=== PATIENT | female | born 1950 | race Native Hawaiian/Other Pacific Islander ===

== ENCOUNTER 2017-07-23 04:55 | Inpatient (IN) | payer MEDICARE ==
[2017-07-23 05:00] VITALS: BMI 20.1
--- NOTE | 2017-07-23 05:18 | C.PDOC ---
History Of Present Illness 67 year old female is brought to the ED via EMS with cardiac arrest. Per EMS patient was not feeling well 2 hours ago, went to the bathroom and collapsed. Patient's family found her unresponsive and called 911, CPR was initiated patient was found PEA given epinephrine and patient went into [facility], patient was shocked twice and given 300 mg and 150 mg of amiodarone. Patient was intubated ROSC, her EKG showed acute anterior lateral wall GA. Time Seen by Provider: 07/23/17 04:59 History Per: EMS, Family Reason For Code Blue: Full Arrest Circumstances: Brought To ED By EMS Arrest Witnessed By: Family CPR Initiated Prior To MD Arrival?: Yes Down-Time Before ACLS: Mins (50) Treatment Initiated Prior To MD Arrival: Yes: CPR, Intubation, Defibrillation, IVF, ACLS Medication Initiation, IV Access Medications Given Prior To MD Arrival: Yes: Epinephrine, Other (amiodarone) - Initial Findings Mentation: Unresponsive Respirations: None (Assisted) Pulse: Strong Rhythm: Sinus Rhythm Past Medical History Reviewed: Historical Data, Nursing Documentation, Vital Signs Vital Signs: Last Vital Signs Temp 94.5 F L 07/23/17 05:25 Pulse 67 07/23/17 05:43 Resp 22 07/23/17 05:43 BP 119/75 07/23/17 05:43 Pulse Ox 98 07/23/17 05:25 - Medical History PMH: No Chronic Diseases Surgical History: No Surg Hx Family History: States: Unknown Family Hx - Social History Hx Tobacco Use: No Hx Alcohol Use: No Hx Substance Use: No - Immunization History Hx Tetanus Toxoid Vaccination: No Hx Influenza Vaccination: No Hx Pneumococcal Vaccination: No Review Of Systems Review Of Systems: ROS cannot be obtained secondary to pt's inabilty to answer questions. Physical Exam - Physical Exam Appears: Non-toxic, In Acute Distress, Other (intubated) Skin: Warm, Dry Head: Normacephalic Nose: No Discharge, No Deformity Chest: Symmetrical Cardiovascular: Rhythm Regular, No Murmur Respiratory: Other (intubated, spontaneous breathing) Gastrointestinal/Abdominal: Soft, No Tenderness Extremity: No Pedal Edema, No Calf Tenderness, No Deformity, No Swelling Neurological/Psych: Other (intubated, unresponsive) ED Course And Treatment - Laboratory Results Result Diagrams: 07/23/17 05:16 07/23/17 05:16 ECG: Interpreted By Me, Viewed By Me ECG Rhythm: Sinus Bradycardia (44), ST/T Changes (anterolateral mi) Rate From EC Pulse Ox Interpretation: Normal - Radiology CXR: Interpreted by Me, Viewed By Me CXR Interpretation: Yes: Other (ett in place, NG tube in place). No: Infiltrates, Fracture, Pnemothorax Progress Note: see ems code sheet. called dr ng at 05:03. Code heart activated. Disposition Discussed With Dr.: Justin Hunter Comment: accepted the pt on his service and took over the care at Doctor Will See Patient In The: ED Counseled Patient/Family Regarding: Studies Performed, Diagnosis - Disposition Disposition: HOSPITALIZED Disposition Time: 05:20 Condition: CRITICAL - POA Core Measure Indicators: Code Heart - Clinical Impression Clinical Impression: Cardiac arrest, Acute anterolateral myocardial infarction Critical Care Time - Critical Care Note Total Time (in mins): 30 Documented critical care: time excludes all time spent performing seperately billable procedures. - Scribe Statement The provider has reviewed the documentation as recorded by the Scribe Jose Alejandro Preston All medical record entries made by the Scribe were at my direction and personally dictated by me. I have reviewed the chart and agree that the record accurately reflects my personal performance of the history, physical exam, medical decision making, and the department course for this patient. I have also personally directed, reviewed, and agree with the discharge instructions and disposition. Decision To Admit - Pt Status Changed To: Hospital Disposition Of: Inpatient - Admit Certification Admit to Inpatient:: After my assessment, the patient will require hospitalization for at least two midnights. This is because of the severity of symptoms shown, intensity of services needed, and/or the medical risk in this patient being treated as an outpatient. - InPatient: Physician Admission Certification:: After my assessment, the patient will require hospitalization for at least two midnights. This is because of the severity of symptoms shown, intensity of services needed, and/or the medical risk in this patient being treated as an outpatient. - . Bed Request Type: ICU Admitting Physician: Justin Hunter Patient Diagnosis: Cardiac arrest, Acute anterolateral myocardial infarction
--- NOTE | 2017-07-23 05:21 | C.PDOC ---
History Of Present Illness 67 year old female is brought to the ED via EMS with cardiac arrest. Per EMS patient was not feeling well 2 hours ago, went to the bathroom and collapsed. Patient's family found her unresponsive and called 911, CPR was initiated patient was found PEA given epinephrine and patient went into [facility], patient was shocked twice and given 300 mg and 150 mg of atropine. Patient was intubated ROSC, her EKG showed acute anterior lateral wall NC. Time Seen by Provider: 07/23/17 04:59 Chief Complaint (Nursing): Cardiac Arrest History Per: EMS Reason For Code Blue: Full Arrest Circumstances: Brought To ED By EMS Arrest Witnessed By: Family CPR Initiated Prior To MD Arrival?: Yes Treatment Initiated Prior To MD Arrival: Yes: CPR, Intubation, Defibrillation Medications Given Prior To MD Arrival: Yes: Epinephrine - Initial Findings Mentation: Unresponsive Rhythm: V-Tach Past Medical History Reviewed: Historical Data, Nursing Documentation, Vital Signs - Medical History PMH: No Chronic Diseases Surgical History: No Surg Hx Family History: States: Unknown Family Hx - Social History Hx Alcohol Use: No Hx Substance Use: No - Immunization History Hx Tetanus Toxoid Vaccination: No Hx Influenza Vaccination: No Hx Pneumococcal Vaccination: No Review Of Systems Review Of Systems: ROS cannot be obtained secondary to pt's inabilty to answer questions. Physical Exam - Physical Exam Appears: Non-toxic, In Acute Distress, Other (intubated) Skin: Warm, Dry Head: Normacephalic Nose: No Discharge, No Deformity Chest: Symmetrical Cardiovascular: Rhythm Regular, No Murmur Respiratory: Other (Intubated, spontaneous breathing ) Gastrointestinal/Abdominal: Soft, No Tenderness Extremity: No Pedal Edema, No Calf Tenderness, No Deformity, No Swelling Neurological/Psych: Other (Intubated, spontaneous breathing) Disposition - Disposition
[2017-07-23 05:22] LABS: EOS # 0.1 K/uL (0.0-0.7); EOS % 1.3 % (0.0-4.0); HEMOGLOBIN 11.8 g/dL (11.0-16.0); LYMPH # 6.5 K/uL (1.0-4.3); LYMPH % 86.9 % (20.0-40.0); MEAN CELL VOLUME 92.3 fL (81.0-99.0); MEAN CORPUSCULAR HGB CONC 31.4 g/dL (33.0-37.0); MEAN PLATELET VOLUME 9.3 fL (7.2-11.7); MONO # 0.2 K/uL (0.0-0.8); MONO % 2.5 % (0.0-10.0); NEUT # 0.7 K/uL (1.8-7.0); NEUT % 9.3 % (50.0-75.0); NRBC % 0.1 % (0.0-2.0); PLATELET COUNT 133 K/uL (130-400); RBC 4.07 Mil/uL (3.80-5.20); WHITE BLOOD COUNT 7.5 K/uL (4.8-10.8)
[2017-07-23 05:32] LABS: INR 1.1; PROTHROMBIN TIME 12.6 SECONDS (9.7-12.2)
[2017-07-23] MEDS ORDERED: Nitroglycerin 50mg in D5W 50 MG/250 ML BOTTLE IV ONE (05:53)
[2017-07-23] MEDS ORDERED: Iodixanol 320 MG/ML 200 ML BOTTLE IV ONE (05:54)
[2017-07-23 05:59] LABS: BLOOD UREA NITROGEN 14 mg/dL (7-17); GFR AFRICAN-AMERICAN > 60; GFR NON-AFRICAN AMERICAN > 60
[2017-07-23 06:00] LABS: ALBUMIN 2.5 g/dL (3.5-5.0)
[2017-07-23 06:01] LABS: ALT/SGPT 485 U/L (9-52); AST/SGOT 468 U/L (14-36); CALCIUM 7.3 mg/dl (8.6-10.4)
[2017-07-23 06:22] LABS: TROPONIN I 0.125 ng/mL (0.00-0.120)
[2017-07-23 06:40] LABS: BANDS 2 % (0-2); EOSINOPHIL 3 % (0-4); LYMPHOCYTE 17 % (20-40); MONOCYTE 3 % (0-10); MYELOCYTE 2 % (0-0); NEUTROPHIL 13 % (50-75); PLATELET ESTIMATE SLIGHTLY DECREASED (NORMAL); REACTIVE LYMPHOCYTES 60 % (0-0); TOTAL CELLS COUNTED 100
--- NOTE | 2017-07-23 06:52 | CP.PCM.CON ---
History of Present Illness - History of Present Illness History of Present Illness: 67 year old female with h/o arthritis visiting son from [place] is brought to the ED via EMS with cardiac arrest. Patient had c/o chest pain and sweating about 3: 00am .Family heard a noise about 4:00am found in the bathroom collapsed. Patient 's family found her unresponsive and called 911, CPR was initiated patient was found PEA given epinephrine and patient went into [facility], patient was shocked twice and given 300 mg and 150 mg of amiodarone. Patient was intubated , her EKG showed acute anterior lateral wall RI. received brilinta,heparin,aspirin and nitroglycerine in ER Code heart initiated,but cardiac cath not done due to patients condition no further history available. Past Patient History - Past Social History Smoking Status: Never Smoked Alcohol: None Home Situation {Lives}: With Family - PSYCHIATRIC Hx Substance Use: No - SURGICAL HISTORY Hx Surgeries: No Meds Allergies/Adverse Reactions: Allergies Allergy/AdvReac Type Severity Reaction Status Date / Time No Known Allergies Allergy Unverified 07/23/17 05:00 - Medications Medications: Current Medications Pantoprazole Sodium (Protonix Inj) 40 mg IVP DAILY GLENNA Physical Exam - Constitutional Appears: Younger Than Stated Age Additional comments: orally intubated - Head Exam Head Exam: ATRAUMATIC, NORMAL INSPECTION, NORMOCEPHALIC - Eye Exam Eye Exam: absent: Conjunctival injection, Periorbital swelling, Scleral icterus Additional comments: pupils dilated,sluggishly reactive to light - ENT Exam ENT Exam: Mucous Membranes Moist - Neck Exam Neck exam: Negative for: Normal Inspection - Respiratory Exam Respiratory Exam: Clear to Auscultation Bilateral, NORMAL BREATHING PATTERN. absent: Rales, Rhonchi - Cardiovascular Exam Cardiovascular Exam: REGULAR RHYTHM - GI/Abdominal Exam GI & Abdominal Exam: Normal Bowel Sounds, Soft - Extremities Exam Extremities exam: Positive for: pedal pulses present. Negative for: pedal edema - Neurological Exam Additional comments: unresponsive - Skin Skin Exam: Intact, Normal Color Results - Vital Signs Recent Vital Signs: Last Vital Signs Temp 94.5 F L 07/23/17 05:25 Pulse 67 07/23/17 05:43 Resp 22 07/23/17 05:43 BP 119/75 07/23/17 05:43 Pulse Ox 98 07/23/17 05:25 - Labs Result Diagrams: 07/23/17 05:16 07/23/17 05:16 Labs: Laboratory Results - last 24 hr 07/23/17 07/23/17 07/23/17 05:16 05:16 05:16 WBC 7.5 RBC 4.07 Hgb 11.8 Hct 37.6 MCV 92.3 MCH 29.0 MCHC 31.4 L RDW 14.0 Plt Count 133 MPV 9.3 Neut % (Auto) 9.3 L Lymph % (Auto) 86.9 H Jenkins % (Auto) 2.5 Eos % (Auto) 1.3 Baso % (Auto) 0.0 Neut # 0.7 L Lymph # 6.5 H Jenkins # 0.2 Eos # 0.1 Baso # 0.0 Neutrophils % (Manual) 13 L Band Neutrophils % 2 Lymphocytes % (Manual) 17 L Reactive Lymphs % 60 H Monocytes % (Manual) 3 Eosinophils % (Manual) 3 Myelocytes % 2 H Platelet Estimate Slightly decreased L PT 12.6 H INR 1.1 APTT 48 H Sodium 132 Potassium 3.1 L Chloride 103 Carbon Dioxide 15 L Anion Gap 17 BUN 14 Creatinine 0.9 Est GFR ( Amer) > 60 Est GFR (Non-Af Amer) > 60 Random Glucose 352 H Calcium 7.3 L Total Bilirubin 0.5 AST 468 H ALT 485 H Alkaline Phosphatase 42 Troponin I NT-Pro-B Natriuret Pep Total Protein 5.0 L Albumin 2.5 L Globulin 2.6 Albumin/Globulin Ratio 1.0 07/23/17 05:16 WBC RBC Hgb Hct MCV MCH MCHC RDW Plt Count MPV Neut % (Auto) Lymph % (Auto) Jenkins % (Auto) Eos % (Auto) Baso % (Auto) Neut # Lymph # Jenkins # Eos # Baso # Neutrophils % (Manual) Band Neutrophils % Lymphocytes % (Manual) Reactive Lymphs % Monocytes % (Manual) Eosinophils % (Manual) Myelocytes % Platelet Estimate PT INR APTT Sodium Potassium Chloride Carbon Dioxide Anion Gap BUN Creatinine Est GFR ( Amer) Est GFR (Non-Af Amer) Random Glucose Calcium Total Bilirubin AST ALT Alkaline Phosphatase Troponin I 0.1250 H* NT-Pro-B Natriuret Pep 298 Total Protein Albumin Globulin Albumin/Globulin Ratio - EKG Data EKG Interpreted by: Myself - Imaging and Cardiology Chest x-ray Status: Image reviewed by me Assessment & Plan - Assessment and Plan (Free Text) Assessment: 1.Respiratory failure/Cardiac arrest/ST elevation RI continue ventilatory support CT head consider hypothermia protocol 2.Hypokalemia replace potassium 3.Hyperglycemia-r/o DM HbaIC 4.elevated LFT rpt lft
--- NOTE | 2017-07-23 06:54 | CP.PCM.PN ---
Subjective - Date & Time of Evaluation Date of Evaluation: 07/23/17 Time of Evaluation: 06:47 - Subjective Subjective: 67 f with h/o OA, here in [place] for last 2 wks to help son for taking care of grand son, around 3am woke up with CP, sweating, about 4am went bathroom, the collapsed, pt's son and daughter called EMS, started CPR on guidance, EMT reached about 4:11, initial rhythm PEA, then vfib, then sinus with lateral STEMI with inferior reciprocal changes. Patient needed 3 rounds of epi. Patient was unresponsive in ER and posturing, no clear corneal reflex, ? pupillary reflex. Not on any pressor support. Initial code heart was cancelled due to clinical signs of significant brain damage, patient transferred back to ICU. Son explained. HAMMER CT ordered to r/o any bleeding prior to hypothermia protocol. Supportive care. Objective - Vital Signs/Intake and Output Vital Signs (last 24 hours): Temp Pulse Resp BP Pulse Ox 94.5 F L 67 22 119/75 98 07/23/17 05:25 07/23/17 05:43 07/23/17 05:43 07/23/17 05:43 07/23/17 05:25 - Medications Medications: Current Medications Pantoprazole Sodium (Protonix Inj) 40 mg IVP DAILY GLENNA - Labs Labs: 07/23/17 05:16 07/23/17 05:16 PT 12.6 SECONDS (9.7-12.2) H 07/23/17 05:16 INR 1.1 07/23/17 05:16 APTT 48 SECONDS (21-34) H 07/23/17 05:16
[2017-07-23 06:56] LABS: ABG ALLEN TEST POS; ARTERIAL BLOOD GAS HCO3 12.9 mmol/L (21-28); ARTERIAL BLOOD GAS O2 SAT 100.3 % (95-98); ARTERIAL BLOOD GAS PCO2 34 mm/Hg (35-45); ARTERIAL BLOOD GAS PH 7.16 (7.35-7.45); ARTERIAL BLOOD GAS PO2 498 mm/Hg (80-100); ARTERIAL BLOOD GAS TCO2 13.1 mmol/L (22-28)
--- NOTE | 2017-07-23 07:45 | CP.PCM.HP ---
History of Present Illness - History of Present Illness History of Present Illness: CC: Code Heart HPI: This is a code heart that was called at approx 5am this morning. This is a patient ho's visiting from [place]. Per son, the patient woke up this morning at 3am feeling hot and with chest pain. The patient then went to the bathroom around 4am. The patient's daughter heard a thump at 4:05am and the patient was found lying on the bathroom floor unconscious. The son called 911 at 4:10am. The son began doing [id number] and chest compressions. Initial rhythm was PEA, then vfib, then sinus with lateral STEMI with inferior reciprocal changes. Patient needed 3 rounds of epinephrine. Patient was unresponsive in ER and posturing, no clear corneal reflex, ? pupillary reflex. Not on any pressor support. Initial code heart was cancelled due to clinical signs of significant brain damage, patient transferred back to ICU. PMD: none PMHx: arthritis PSHx: none Meds: none Allergies: NKA FamHx: Mother and Father both had cardiac problems; Brother with CO; Sister with CVA SocialHx: No smoking, no alcohol, no drug use Present on Admission - Present on Admission Any Indicators Present on Admission: No Review of Systems - Review of Systems Systems not reviewed;Unavailable: Intubated Past Patient History - Past Social History Smoking Status: Never Smoked Alcohol: None Home Situation {Lives}: With Family - PSYCHIATRIC Hx Substance Use: No - SURGICAL HISTORY Hx Surgeries: No Meds Allergies/Adverse Reactions: Allergies Allergy/AdvReac Type Severity Reaction Status Date / Time No Known Allergies Allergy Unverified 07/23/17 05:00 Physical Exam - Constitutional Appears: In Acute Distress - Head Exam Head Exam: ATRAUMATIC - Eye Exam Eye Exam: absent: EOMI, PERRL Pupil Exam: Fixed Additional comments: No corneal reflex Questionable pupillary response - ENT Exam ENT Exam: Mucous Membranes Dry - Neck Exam Neck exam: Positive for: Normal Inspection - Respiratory Exam Respiratory Exam: absent: NORMAL BREATHING PATTERN Additional comments: Patient intubated - Cardiovascular Exam Cardiovascular Exam: Irregular Rhythm - GI/Abdominal Exam GI & Abdominal Exam: Normal Bowel Sounds, Soft - Extremities Exam Additional comments: upper limb movements resembling decorticate posture - Neurological Exam Neurological exam: Altered - Skin Additional comments: Extremities cold to touch Results - Vital Signs Recent Vital Signs: Last Vital Signs Temp 94.5 F L 07/23/17 05:25 Pulse 67 07/23/17 05:43 Resp 22 07/23/17 05:43 BP 119/75 07/23/17 05:43 Pulse Ox 98 07/23/17 05:25 - Labs Result Diagrams: 07/23/17 05:16 07/23/17 05:16 Labs: Laboratory Results - last 24 hr 07/23/17 07/23/17 07/23/17 05:16 05:16 05:16 WBC 7.5 RBC 4.07 Hgb 11.8 Hct 37.6 MCV 92.3 MCH 29.0 MCHC 31.4 L RDW 14.0 Plt Count 133 MPV 9.3 Neut % (Auto) 9.3 L Lymph % (Auto) 86.9 H Hart % (Auto) 2.5 Eos % (Auto) 1.3 Baso % (Auto) 0.0 Neut # 0.7 L Lymph # 6.5 H Hart # 0.2 Eos # 0.1 Baso # 0.0 Neutrophils % (Manual) 13 L Band Neutrophils % 2 Lymphocytes % (Manual) 17 L Reactive Lymphs % 60 H Monocytes % (Manual) 3 Eosinophils % (Manual) 3 Myelocytes % 2 H Platelet Estimate Slightly decreased L PT 12.6 H INR 1.1 APTT 48 H Puncture Site pCO2 pO2 HCO3 ABG pH ABG Total CO2 ABG O2 Saturation ABG Base Excess ABG Hemoglobin ABG Carboxyhemoglobin POC ABG HHb (Measured) ABG Methemoglobin Sb Test A-a O2 Difference Respiratory Index Hgb O2 Saturation Vent Mode Mechanical Rate FiO2 Tidal Volume PEEP Crit Value Called To Crit Value Called By Crit Value Read Back Blood Gas Notified Time Sodium 132 Potassium 3.1 L Chloride 103 Carbon Dioxide 15 L Anion Gap 17 BUN 14 Creatinine 0.9 Est GFR ( Amer) > 60 Est GFR (Non-Af Amer) > 60 Random Glucose 352 H Calcium 7.3 L Total Bilirubin 0.5 AST 468 H ALT 485 H Alkaline Phosphatase 42 Troponin I NT-Pro-B Natriuret Pep Total Protein 5.0 L Albumin 2.5 L Globulin 2.6 Albumin/Globulin Ratio 1.0 07/23/17 07/23/17 05:16 06:50 WBC RBC Hgb Hct MCV MCH MCHC RDW Plt Count MPV Neut % (Auto) Lymph % (Auto) Hart % (Auto) Eos % (Auto) Baso % (Auto) Neut # Lymph # Hart # Eos # Baso # Neutrophils % (Manual) Band Neutrophils % Lymphocytes % (Manual) Reactive Lymphs % Monocytes % (Manual) Eosinophils % (Manual) Myelocytes % Platelet Estimate PT INR APTT Puncture Site Rradial pCO2 34 L pO2 498 H HCO3 12.9 L ABG pH 7.16 L* ABG Total CO2 13.1 L ABG O2 Saturation 100.3 H ABG Base Excess -15.5 L ABG Hemoglobin 12.0 ABG Carboxyhemoglobin 1.3 POC ABG HHb (Measured) -0.3 L ABG Methemoglobin 0.7 Sb Test Pos A-a O2 Difference 173.0 Respiratory Index 0.3 Hgb O2 Saturation 98.4 H Vent Mode Prvc Mechanical Rate 12 FiO2 100.0 Tidal Volume 500 PEEP 5 Crit Value Called To Dr. ross Crit Value Called By Dana hernandez rcp Crit Value Read Back Y Blood Gas Notified Time 655 Sodium Potassium Chloride Carbon Dioxide Anion Gap BUN Creatinine Est GFR ( Amer) Est GFR (Non-Af Amer) Random Glucose Calcium Total Bilirubin AST ALT Alkaline Phosphatase Troponin I 0.1250 H* NT-Pro-B Natriuret Pep 298 Total Protein Albumin Globulin Albumin/Globulin Ratio Assessment & Plan (1) Acute anterolateral myocardial infarction Status: Acute Priority: High - Assessment and Plan (Free Text) Assessment: 1. Respiratory failure/Cardiac arrest/ST elevation CO Code heart cancelled due to clinical signs of significant brain damage Troponin elevated continue ventilatory support HAMMER CT ordered to r/o any bleeding prior to hypothermia protocol consider hypothermia protocol 2. Hypokalemia replace potassium 3. Hyperglycemia r/o DM F/U HbaIC 4. Elevated LFT F/U repeat LFT 5. Prophylaxix Protonix 40mg IVP QD Wait for imaging before starting AO
[2017-07-23] MEDS: Heparin25000 units/250ml 1/2NS 25,000 UNITS/250 ML BAG IV PRN (08:44)
[2017-07-23] MEDS: (Novolin R) Insulin Human Regular 100 units/ml vial SC SCH ×3 (08:47→17:38)
[2017-07-23] MEDS ORDERED: Calcium Gluconate 4.65 MEQ in Dextrose 5% In Water 100 ML IV ONE (09:00)
--- NOTE | 2017-07-23 09:13 | RAD ---
PROCEDURE: CHEST RADIOGRAPH, 1 VIEW HISTORY: chest pain COMPARISON: No prior similar study available for comparison FINDINGS: LUNGS: Part of the lungs obscured by the patient's hands. No evidence of focal infiltrate or consolidation in the lungs. The ET tube is seen at appropriate position. PLEURA: No pneumothorax or pleural fluid seen. CARDIOVASCULAR: Normal. OSSEOUS STRUCTURES: No significant abnormalities. VISUALIZED UPPER ABDOMEN: Normal. OTHER FINDINGS: None. IMPRESSION: Suboptimal study. The midportion of the lungs is obscured by overlying patient's hands. Appropriate position of the ETT and NG tube.
[2017-07-23] MEDS: Sodium Bicarbonate 8.4% 100 MEQ in Sodium Chloride 0.45% 900 ML IV SCH ×2 (09:58→17:34)
--- NOTE | 2017-07-23 11:13 | CP.PCM.PN ---
Subjective - Date & Time of Evaluation Date of Evaluation: 07/23/17 Time of Evaluation: 11:00 - Subjective Subjective: Hospitalist Progress Note Patient was seen and examined at 11:00 AM 07/23/17 ICU Bed 8. 67 year old female (with NO past medical history as per Yohan Ayala [phone] , who provided all information) who was admitted to the [facility] ICU earlier this morning for further treatment and evaluation of Respiratory Failure , Cardiac Arrest, and STEMI. Yohan Ayala explains that patient is visiting from [place] and staying with him. She was doing fine after dinner last night 07/22/17. However, she awoke at 2 AM 07/23/17 complaining of being very hot and with chest pain. Yohan Ayala stated that he was going to call 911 but patient insisted that she was Ok. Then around 4:30 AM patient was found on the floor nonresponsive and Jamie started CPR and called 911. As per admission H&P, patient had PEA followed by Atrial Fibrillation and then had STEMI and therefore CODE HEART was instituted. However, after she arrived to the ER, the Code Heart was cancelled due to NO corneal and NO pupillary reflex. Yohan Ayala explains that patient may have had Diabetes for some time due to her eating habits but has refused to see a physician. As per Yohan Ayala, patient does NOT have an Advance Directive. Health Care Proxy would be Jamie and patient's other son Marlene [phone] Currently ROS is not possible secondary to patient being intubated and on Vent. Exam: GENERAL: responsive to painful stimuli and patient is now awake but not responding to questioning or following commands HEENT: NCA, Pupils are round and reactive to light, NO cervical/supraclavicular/ submandibular lymphadenopathy Cardio: NS1 and NS2, NO M/R/G Resp: CTA B/L, NO R/R/W but this is limited due to lack of patient GI: BSx4, Soft, ND, When pressing down on abdomen patient is trying to push my hands away, Liver and Spleen could not be palpated at the time of my exam Ext: Pulses are strong and equal, Capillary Refill is 2 seconds, NO edema Neurology: NOT Possible at this time Assessment and Plan: 1). Respiratory Failure/Cardiac Arrest/STEMI F/U CT Head at 8 PM 07/23/18 Continue Heparin Drip, ASA, Plavix F/U Troponin 1 PM and 7 PM F/U 2D Echocardiogram Consult Cardiology Dr. Bacilio Oscar for further recommendations: for Cardiac Catheterization here at [facility] on Monday07/25/17 morning Status: Acute 2). Metabolic Acidosis Considering Elevated Blood Glucose and Low Bicarb, F/U UA for Ketones and Serum BetaHydroxybuterate to help rule out DKA 1/2 NS with 100 mEQ NaHCO3 at 150 ml/hours F/U Blood Culture F/U Urine Culture F/U CT Chest/Abdomen/Pelvis Status: Acute 3). CVA? F/U CT Head F/U EEG Consult Neurology Dr. Santos Chapin for further recommendations Status: Acute 4) DM? Considering blood glucose > 200 upon admission, this is likely F/U HgBA1C F/U TSH F/U T4 F/U Lipid Panel RISS Q6H Low Dose Hypoglycemic Protocol Status:Chronic 5). Elevated LFTs Secondary to shock liver considering HPI? F/U CT Abdomen/Pelvis F/U Acute Hepatitis Panel Status: Acute 6). Hypokalemia NS with 10 mEQ KCl at 40 ml/hour F/U Magnesium F/U Phosphorous Status: Acute 7). Brown Vomitus Secondary to Heparin Drip? F/U CBC at 1 PM Status: Acute 8). Prophylaxis Protonix 40 mg IV 1x/day Heparin Drip Status: Acute Domenic Blanca D.O. Objective - Vital Signs/Intake and Output Vital Signs (last 24 hours): Temp Pulse Resp BP Pulse Ox 96.3 F L 83 22 135/53 L 100 07/23/17 08:00 07/23/17 09:45 07/23/17 09:45 07/23/17 09:00 07/23/17 09:15 - Medications Medications: Current Medications Potassium Chloride 10 meq/ (Sodium Chloride) 1,005 mls @ 40 mls/hr IV .Q24H GLENNA Sodium Bicarbonate 100 meq/ (Sodium Chloride) 1,000 mls @ 150 mls/hr IV .Q6H40M GLENNA Last Admin: 07/23/17 09:58 Dose: 150 mls/hr Heparin Sodium/Sodium Chloride (Heparin 94926 Units/250ml 1/2 Normal Saline) 25 ,000 units in 250 mls @ 5.987 mls/hr IV .Q24H PRN; Protocol; 12 UNITS/KG/HR PRN Reason: ADJUST RATE PER PROTOCOL Last Admin: 07/23/17 08:44 Dose: 12 units/kg/hr, 5.987 mls/hr Insulin Human Regular (Novolin R) 0 unit SC Q6 GLENNA PRN Reason: Protocol Last Admin: 07/23/17 08:47 Dose: 3 unit Pantoprazole Sodium (Protonix Inj) 40 mg IVP DAILY [facility] Last Admin: 07/23/17 10:34 Dose: 40 mg Pneumococcal Polyvalent Vaccine (Pneumovax 23 Vaccine) 0.5 ml IM .ONCE ONE Stop: 07/25/17 10:01 - Labs Labs: 07/23/17 05:16 07/23/17 05:16 PT 12.6 SECONDS (9.7-12.2) H 07/23/17 05:16 INR 1.1 07/23/17 05:16 APTT 48 SECONDS (21-34) H 07/23/17 05:16
[2017-07-23] MEDS ORDERED: Dextrose 50% SYRINGE Inj (50 ml) IV PRN (11:30)
[2017-07-23] MEDS ORDERED: Glucagon Recombinant 1 mg Inj IM PRN (11:30)
[2017-07-23 12:38] LABS: MAGNESIUM 2.3 mg/dL (1.6-2.3)
[2017-07-23 13:39] LABS: BASO % 0.1 % (0.0-2.0); HEMOGLOBIN 13.1 g/dL (11.0-16.0); LYMPH # 0.9 K/uL (1.0-4.3); LYMPH % 4.5 % (20.0-40.0); MEAN CELL VOLUME 88.6 fL (81.0-99.0); MEAN CORPUSCULAR HEMOGLOBIN 29.2 pg (27.0-31.0); MEAN CORPUSCULAR HGB CONC 32.9 g/dL (33.0-37.0); MEAN PLATELET VOLUME 8.6 fL (7.2-11.7); MONO # 0.9 K/uL (0.0-0.8); MONO % 4.7 % (0.0-10.0); NEUT # 18.4 K/uL (1.8-7.0); NEUT % 90.7 % (50.0-75.0); PLATELET COUNT 223 K/uL (130-400); RBC 4.47 Mil/uL (3.80-5.20); RED CELL DISTRIBUTION WIDTH 13.5 % (11.5-14.5); WHITE BLOOD COUNT 20.3 K/uL (4.8-10.8)
[2017-07-23 13:45] LABS: SQUAMOUS EPITHIAL < 1 /hpf (0-5); URINE AMORPHOUS SEDIMENT RARE /ul (<OCC); URINE BACTERIA OCC (<OCC); URINE BILIRUBIN NEGATIVE (NEGATIVE); URINE BLOOD 3+ (NEGATIVE); URINE CLARITY Hazy (Clear); URINE COLOR Yellow (YELLOW); URINE GLUCOSE (UA) 2+ mg/dL (Normal); URINE LEUKOCYTE ESTERASE TRACE Leu/uL (Negative); URINE NITRATE NEGATIVE (NEGATIVE); URINE PROTEIN 2+ mg/dL (NEGATIVE); URINE UROBILINOGEN NORMAL mg/dL (0.2-1.0)
[2017-07-23 14:17] LABS: LDL CHOLESTEROL 123 mg/dL (0-129)
[2017-07-23 14:25] LABS: BANDS 10 % (0-2); LYMPHOCYTE 5 % (20-40); MONOCYTE 5 % (0-10); NEUTROPHIL 80 % (50-75); TOTAL CELLS COUNTED 100
[2017-07-23 14:26] LABS: PLATELET ESTIMATE NORMAL (NORMAL)
[2017-07-23 14:40] LABS: ALB/GLOB RATIO 1.1 (1.0-2.1); ALBUMIN 3.1 g/dL (3.5-5.0); ALT/SGPT 635 U/L (9-52); BLOOD UREA NITROGEN 18 mg/dL (7-17); CK-MB 354 ng/mL (0.0-3.38); GFR AFRICAN-AMERICAN > 60; GFR NON-AFRICAN AMERICAN > 60; HDL CHOLESTEROL 52 mg/dL (30-70); MAGNESIUM 1.7 mg/dL (1.6-2.3)
[2017-07-23 14:48] LABS: ARTERIAL BLOOD GAS HCO3 21.3 mmol/L (21-28); ARTERIAL BLOOD GAS O2 SAT 99.9 % (95-98); ARTERIAL BLOOD GAS PCO2 28 mm/Hg (35-45); ARTERIAL BLOOD GAS PH 7.43 (7.35-7.45); ARTERIAL BLOOD GAS PO2 249 mm/Hg (80-100); ARTERIAL BLOOD GAS TCO2 19.5 mmol/L (22-28)
[2017-07-23 15:03] LABS: AST/SGOT 917 U/L (14-36)
[2017-07-23 16:09] LABS: INR 1.1; PROTHROMBIN TIME 12.4 SECONDS (9.7-12.2)
--- NOTE | 2017-07-23 18:23 | CP.PCM.PCO ---
Physician Communication Note - Physician Communication Note Physician Communication Note: Please see above
--- NOTE | 2017-07-23 18:33 | CP.PCM.CON ---
History of Present Illness - History of Present Illness History of Present Illness: CC: S/P Cardiac arrest HPI: 67 F with hx of borderline DM 2, Hyperlipidemia braught to [place] after cardiac arrest. Intubated. EKG revealed lateral ST elevations. As the patient was neurologically posturing the PCI was consulted. Patient now more awake. EKG normalized and patient chest pain free. Neuro eval in progress. Continue IV Heparin and ASA cT head at 8pm tonight. If negative start Plavix Cardiac Cath Monday Plan d/w patient's family HPI: This is a code heart that was called at approx 5am this morning. This is a patient ho's visiting from [place]. Per son, the patient woke up this morning at 3am feeling hot and with chest pain. The patient then went to the bathroom around 4am. The patient's daughter heard a thump at 4:05am and the patient was found lying on the bathroom floor unconscious. The son called 911 at 4:10am. The son began doing [id number] and chest compressions. Initial rhythm was PEA, then vfib, then sinus with lateral STEMI with inferior reciprocal changes. Patient needed 3 rounds of epinephrine. Patient was unresponsive in ER and posturing, no clear corneal reflex, ? pupillary reflex. Not on any pressor support. The code heart was cancelled due to clinical signs of significant brain damage, patient transferred back to ICU. PMD: none PMHx: arthritis PSHx: none Meds: none Allergies: NKA FamHx: Mother and Father both had cardiac problems; Brother with IA; Sister with CVA SocialHx: No smoking, no alcohol, no drug use Present on Admission - Present on Admission Any Indicators Present on Admission: No Review of Systems - Review of Systems Systems not reviewed;Unavailable: Intubated Physical Exam - Constitutional Appears: In Acute Distress - Head Exam Head Exam: ATRAUMATIC - Eye Exam Eye Exam: absent: EOMI, PERRL Pupil Exam: Fixed Additional comments: No corneal reflex Questionable pupillary response - ENT Exam ENT Exam: Mucous Membranes Dry - Neck Exam Neck exam: Positive for: Normal Inspection - Respiratory Exam Respiratory Exam: absent: NORMAL BREATHING PATTERN Additional comments: Patient intubated - Cardiovascular Exam Cardiovascular Exam: Irregular Rhythm - GI/Abdominal Exam GI & Abdominal Exam: Normal Bowel Sounds, Soft - Extremities Exam Additional comments: upper limb movements resembling decorticate posture - Neurological Exam Neurological exam: Altered - Skin Additional comments: Extremities cold to touch Past Patient History - Past Medical History & Family History Past Medical History?: No - Past Social History Smoking Status: Never Smoked - MUSCULOSKELETAL/RHEUMATOLOGICAL Hx Falls: Yes - PSYCHIATRIC Hx Substance Use: No - SURGICAL HISTORY Hx Surgeries: No - ANESTHESIA Hx Anesthesia: No Meds Allergies/Adverse Reactions: Allergies Allergy/AdvReac Type Severity Reaction Status Date / Time No Known Allergies Allergy Unverified 07/23/17 10:39 - Medications Medications: Current Medications Aspirin (Ecotrin) 81 mg PO DAILY [facility] Clopidogrel Bisulfate (Plavix) 75 mg PO DAILY [facility] Dextrose (Dextrose 50% Inj) 0 ml IV STAT PRN; Protocol PRN Reason: Hypoglycemia Protocol Dextrose (Glutose 15) 0 gm PO ONCE PRN; Protocol PRN Reason: Hypoglycemia Protocol Glucagon (Glucagen Diagnostic Kit) 0 mg IM STAT PRN; Protocol PRN Reason: Hypoglycemia Protocol Sodium Bicarbonate 100 meq/ (Sodium Chloride) 1,000 mls @ 150 mls/hr IV .Q6H40M [facility] Last Admin: 07/23/17 17:34 Dose: 150 mls/hr Heparin Sodium/Sodium Chloride (Heparin 36275 Units/250ml 1/2 Normal Saline) 25 ,000 units in 250 mls @ 5.987 mls/hr IV .Q24H PRN; Protocol; 12 UNITS/KG/HR PRN Reason: ADJUST RATE PER PROTOCOL Last Titration: 07/23/17 17:15 Dose: 9 units/kg/hr, 4.491 mls/hr Dextrose (Dextrose 5% In Water 1000 Ml) 1,000 mls @ 0 mls/hr IV .Q0M PRN; Protocol; Per Protocol PRN Reason: Hypoglycemia Protocol Insulin Human Regular (Novolin R) 0 unit SC Q6 GLENNA PRN Reason: Protocol Last Admin: 07/23/17 17:38 Dose: Not Given Pantoprazole Sodium (Protonix Inj) 40 mg IVP DAILY [facility] Last Admin: 07/23/17 10:34 Dose: 40 mg Pneumococcal Polyvalent Vaccine (Pneumovax 23 Vaccine) 0.5 ml IM .ONCE ONE Stop: 07/25/17 10:01 Rosuvastatin Calcium (Crestor) 20 mg PO HS [facility] Results - Vital Signs Recent Vital Signs: Last Vital Signs Temp 97.7 F 07/23/17 16:00 Pulse 84 07/23/17 17:00 Resp 16 07/23/17 17:00 BP 124/68 07/23/17 16:13 Pulse Ox 95 07/23/17 17:00 - Labs Result Diagrams: 07/24/17 04:45 07/24/17 06:41 Labs: Laboratory Results - last 24 hr 07/23/17 07/23/17 07/23/17 05:16 05:16 05:16 WBC 7.5 RBC 4.07 Hgb 11.8 Hct 37.6 MCV 92.3 MCH 29.0 MCHC 31.4 L RDW 14.0 Plt Count 133 MPV 9.3 Neut % (Auto) 9.3 L Lymph % (Auto) 86.9 H M[place]rack[place] % (Auto) 2.5 Eos % (Auto) 1.3 Baso % (Auto) 0.0 Neut # 0.7 L Lymph # 6.5 H [place] # 0.2 Eos # 0.1 Baso # 0.0 Neutrophils % (Manual) 13 L Band Neutrophils % 2 Lymphocytes % (Manual) 17 L Reactive Lymphs % 60 H Monocytes % (Manual) 3 Eosinophils % (Manual) 3 Myelocytes % 2 H Platelet Estimate Slightly decreased L RBC Morphology PT 12.6 H INR 1.1 APTT 48 H Puncture Site pCO2 pO2 HCO3 ABG pH ABG Total CO2 ABG O2 Saturation ABG Base Excess ABG Hemoglobin ABG Carboxyhemoglobin POC ABG HHb (Measured) ABG Methemoglobin Sb Test A-a O2 Difference Respiratory Index Hgb O2 Saturation Vent Mode Mechanical Rate FiO2 Tidal Volume PEEP Pressure Support CPAP Crit Value Called To Crit Value Called By Crit Value Read Back Blood Gas Notified Time Sodium 132 Potassium 3.1 L Chloride 103 Carbon Dioxide 15 L Anion Gap 17 BUN 14 Creatinine 0.9 Est GFR ( Amer) > 60 Est GFR (Non-Af Amer) > 60 POC Glucose (mg/dL) Random Glucose 352 H Hemoglobin A1c Calcium 7.3 L Phosphorus 7.2 H Magnesium 2.3 Total Bilirubin 0.5 AST 468 H ALT 485 H Alkaline Phosphatase 42 Total Creatine Kinase CK-MB (Mass) Troponin I NT-Pro-B Natriuret Pep Total Protein 5.0 L Albumin 2.5 L Globulin 2.6 Albumin/Globulin Ratio 1.0 Triglycerides Cholesterol LDL Cholesterol Direct HDL Cholesterol Free T4 TSH 3rd Generation Urine Color Urine Clarity Urine pH Ur Specific [place] Urine Protein Urine Glucose (UA) Urine Ketones Urine Blood Urine Nitrate Urine Bilirubin Urine Urobilinogen Ur Leukocyte Esterase Urine WBC (Auto) Urine RBC (Auto) Ur Squamous Epith Cells Amorphous Sediment Urine Bacteria Blood Type Antibody Screen 07/23/17 07/23/17 07/23/17 05:16 05:16 06:50 WBC RBC Hgb Hct MCV MCH MCHC RDW Plt Count MPV Neut % (Auto) Lymph % (Auto) [place] % (Auto) Eos % (Auto) Baso % (Auto) Neut # Lymph # [place] # Eos # Baso # Neutrophils % (Manual) Band Neutrophils % Lymphocytes % (Manual) Reactive Lymphs % Monocytes % (Manual) Eosinophils % (Manual) Myelocytes % Platelet Estimate RBC Morphology PT INR APTT Puncture Site Rradial pCO2 34 L pO2 498 H HCO3 12.9 L ABG pH 7.16 L* ABG Total CO2 13.1 L ABG O2 Saturation 100.3 H ABG Base Excess -15.5 L ABG Hemoglobin 12.0 ABG Carboxyhemoglobin 1.3 POC ABG HHb (Measured) -0.3 L ABG Methemoglobin 0.7 Sb Test Pos A-a O2 Difference 173.0 Respiratory Index 0.3 Hgb O2 Saturation 98.4 H Vent Mode Prvc Mechanical Rate 12 FiO2 100.0 Tidal Volume 500 PEEP 5 Pressure Support CPAP Crit Value Called To Dr. ross Crit Value Called By Dana hernandez rcp Crit Value Read Back Y Blood Gas Notified Time 655 Sodium Potassium Chloride Carbon Dioxide Anion Gap BUN Creatinine Est GFR ( Amer) Est GFR (Non-Af Amer) POC Glucose (mg/dL) Random Glucose Hemoglobin A1c Calcium Phosphorus Magnesium Total Bilirubin AST ALT Alkaline Phosphatase Total Creatine Kinase CK-MB (Mass) Troponin I 0.1250 H* NT-Pro-B Natriuret Pep 298 Total Protein Albumin Globulin Albumin/Globulin Ratio Triglycerides Cholesterol LDL Cholesterol Direct HDL Cholesterol Free T4 TSH 3rd Generation Urine Color Urine Clarity Urine pH Ur Specific [place] Urine Protein Urine Glucose (UA) Urine Ketones Urine Blood Urine Nitrate Urine Bilirubin Urine Urobilinogen Ur Leukocyte Esterase Urine WBC (Auto) Urine RBC (Auto) Ur Squamous Epith Cells Amorphous Sediment Urine Bacteria Blood Type O POSITIVE Antibody Screen Negative 07/23/17 07/23/17 07/23/17 08:25 11:49 13:24 WBC RBC Hgb Hct MCV MCH MCHC RDW Plt Count MPV Neut % (Auto) Lymph % (Auto) [place] % (Auto) Eos % (Auto) Baso % (Auto) Neut # Lymph # [place] # Eos # Baso # Neutrophils % (Manual) Band Neutrophils % Lymphocytes % (Manual) Reactive Lymphs % Monocytes % (Manual) Eosinophils % (Manual) Myelocytes % Platelet Estimate RBC Morphology PT INR APTT Puncture Site pCO2 pO2 HCO3 ABG pH ABG Total CO2 ABG O2 Saturation ABG Base Excess ABG Hemoglobin ABG Carboxyhemoglobin POC ABG HHb (Measured) ABG Methemoglobin Sb Test A-a O2 Difference Respiratory Index Hgb O2 Saturation Vent Mode Mechanical Rate FiO2 Tidal Volume PEEP Pressure Support CPAP Crit Value Called To Crit Value Called By Crit Value Read Back Blood Gas Notified Time Sodium Potassium Chloride Carbon Dioxide Anion Gap BUN Creatinine Est GFR ( Amer) Est GFR (Non-Af Amer) POC Glucose (mg/dL) 293 H 214 H Random Glucose Hemoglobin A1c 6.3 Calcium Phosphorus Magnesium Total Bilirubin AST ALT Alkaline Phosphatase Total Creatine Kinase CK-MB (Mass) Troponin I NT-Pro-B Natriuret Pep Total Protein Albumin Globulin Albumin/Globulin Ratio Triglycerides Cholesterol LDL Cholesterol Direct HDL Cholesterol Free T4 TSH 3rd Generation Urine Color Urine Clarity Urine pH Ur Specific [place] Urine Protein Urine Glucose (UA) Urine Ketones Urine Blood Urine Nitrate Urine Bilirubin Urine Urobilinogen Ur Leukocyte Esterase Urine WBC (Auto) Urine RBC (Auto) Ur Squamous Epith Cells Amorphous Sediment Urine Bacteria Blood Type Antibody Screen 07/23/17 07/23/17 07/23/17 13:24 13:24 13:24 WBC 20.3 H D RBC 4.47 Hgb 13.1 Hct 39.6 MCV 88.6 D MCH 29.2 MCHC 32.9 L RDW 13.5 Plt Count 223 MPV 8.6 Neut % (Auto) 90.7 H Lymph % (Auto) 4.5 L [place] % (Auto) 4.7 Eos % (Auto) 0.0 Baso % (Auto) 0.1 Neut # 18.4 H Lymph # 0.9 L [place] # 0.9 H Eos # 0.0 Baso # 0.0 Neutrophils % (Manual) 80 H Band Neutrophils % 10 H Lymphocytes % (Manual) 5 L Reactive Lymphs % Monocytes % (Manual) 5 Eosinophils % (Manual) Myelocytes % Platelet Estimate Normal RBC Morphology Normal PT INR APTT Puncture Site pCO2 pO2 HCO3 ABG pH ABG Total CO2 ABG O2 Saturation ABG Base Excess ABG Hemoglobin ABG Carboxyhemoglobin POC ABG HHb (Measured) ABG Methemoglobin Sb Test A-a O2 Difference Respiratory Index Hgb O2 Saturation Vent Mode Mechanical Rate FiO2 Tidal Volume PEEP Pressure Support CPAP Crit Value Called To Crit Value Called By Crit Value Read Back Blood Gas Notified Time Sodium 132 Potassium 3.9 Chloride 103 Carbon Dioxide 19 L Anion Gap 14 BUN 18 H Creatinine 0.9 Est GFR ( Amer) > 60 Est GFR (Non-Af Amer) > 60 POC Glucose (mg/dL) Random Glucose 176 H Hemoglobin A1c Calcium 8.0 L Phosphorus Magnesium 1.7 Total Bilirubin 0.5 AST 917 H D ALT 635 H D Alkaline Phosphatase 62 Total Creatine Kinase 2415 H CK-MB (Mass) 354 H Troponin I 104.0000 H* NT-Pro-B Natriuret Pep Total Protein 5.9 L Albumin 3.1 L D Globulin 2.8 Albumin/Globulin Ratio 1.1 Triglycerides 75 Cholesterol 191 LDL Cholesterol Direct 123 HDL Cholesterol 52 Free T4 1.52 TSH 3rd Generation 1.05 Urine Color Urine Clarity Urine pH Ur Specific [place] Urine Protein Urine Glucose (UA) Urine Ketones Urine Blood Urine Nitrate Urine Bilirubin Urine Urobilinogen Ur Leukocyte Esterase Urine WBC (Auto) Urine RBC (Auto) Ur Squamous Epith Cells Amorphous Sediment Urine Bacteria Blood Type Antibody Screen 07/23/17 07/23/17 07/23/17 13:30 14:45 15:41 WBC RBC Hgb Hct MCV MCH MCHC RDW Plt Count MPV Neut % (Auto) Lymph % (Auto) [place] % (Auto) Eos % (Auto) Baso % (Auto) Neut # Lymph # [place] # Eos # Baso # Neutrophils % (Manual) Band Neutrophils % Lymphocytes % (Manual) Reactive Lymphs % Monocytes % (Manual) Eosinophils % (Manual) Myelocytes % Platelet Estimate RBC Morphology PT 12.4 H INR 1.1 APTT 151 H* D Puncture Site Lb pCO2 28 L pO2 249 H HCO3 21.3 ABG pH 7.43 ABG Total CO2 19.5 L ABG O2 Saturation 99.9 H ABG Base Excess -4.7 L ABG Hemoglobin 11.0 L ABG Carboxyhemoglobin 1.3 POC ABG HHb (Measured) 0.1 ABG Methemoglobin 1.0 Sb Test Na A-a O2 Difference 73.0 Respiratory Index 0.3 Hgb O2 Saturation 97.6 Vent Mode Cpap Mechanical Rate FiO2 50.0 Tidal Volume PEEP Pressure Support 10 CPAP 5 Crit Value Called To Crit Value Called By Crit Value Read Back Blood Gas Notified Time Sodium Potassium Chloride Carbon Dioxide Anion Gap BUN Creatinine Est GFR ( Amer) Est GFR (Non-Af Amer) POC Glucose (mg/dL) Random Glucose Hemoglobin A1c Calcium Phosphorus Magnesium Total Bilirubin AST ALT Alkaline Phosphatase Total Creatine Kinase CK-MB (Mass) Troponin I NT-Pro-B Natriuret Pep Total Protein Albumin Globulin Albumin/Globulin Ratio Triglycerides Cholesterol LDL Cholesterol Direct HDL Cholesterol Free T4 TSH 3rd Generation Urine Color Yellow Urine Clarity Hazy Urine pH 5.0 Ur Specific [place] 1.017 Urine Protein 2+ H Urine Glucose (UA) 2+ H Urine Ketones Negative Urine Blood 3+ H Urine Nitrate Negative Urine Bilirubin Negative Urine Urobilinogen Normal Ur Leukocyte Esterase Trace Urine WBC (Auto) 16 H Urine RBC (Auto) 209 H Ur Squamous Epith Cells < 1 Amorphous Sediment Rare H Urine Bacteria Occ H Blood Type Antibody Screen 07/23/17 17:37 WBC RBC Hgb Hct MCV MCH MCHC RDW Plt Count MPV Neut % (Auto) Lymph % (Auto) [place] % (Auto) Eos % (Auto) Baso % (Auto) Neut # Lymph # [place] # Eos # Baso # Neutrophils % (Manual) Band Neutrophils % Lymphocytes % (Manual) Reactive Lymphs % Monocytes % (Manual) Eosinophils % (Manual) Myelocytes % Platelet Estimate RBC Morphology PT INR APTT Puncture Site pCO2 pO2 HCO3 ABG pH ABG Total CO2 ABG O2 Saturation ABG Base Excess ABG Hemoglobin ABG Carboxyhemoglobin POC ABG HHb (Measured) ABG Methemoglobin Sb Test A-a O2 Difference Respiratory Index Hgb O2 Saturation Vent Mode Mechanical Rate FiO2 Tidal Volume PEEP Pressure Support CPAP Crit Value Called To Crit Value Called By Crit Value Read Back Blood Gas Notified Time Sodium Potassium Chloride Carbon Dioxide Anion Gap BUN Creatinine Est GFR ( Amer) Est GFR (Non-Af Amer) POC Glucose (mg/dL) 122 H Random Glucose Hemoglobin A1c Calcium Phosphorus Magnesium Total Bilirubin AST ALT Alkaline Phosphatase Total Creatine Kinase CK-MB (Mass) Troponin I NT-Pro-B Natriuret Pep Total Protein Albumin Globulin Albumin/Globulin Ratio Triglycerides Cholesterol LDL Cholesterol Direct HDL Cholesterol Free T4 TSH 3rd Generation Urine Color Urine Clarity Urine pH Ur Specific [place] Urine Protein Urine Glucose (UA) Urine Ketones Urine Blood Urine Nitrate Urine Bilirubin Urine Urobilinogen Ur Leukocyte Esterase Urine WBC (Auto) Urine RBC (Auto) Ur Squamous Epith Cells Amorphous Sediment Urine Bacteria Blood Type Antibody Screen Assessment & Plan - Assessment and Plan (Free Text) Assessment: (1) Acute anterolateral myocardial infarction 1. Respiratory failure/Cardiac arrest/ST elevation IA Code heart cancelled due to changes suggestive of neurological injury Troponin elevated continue ventilatory support HAMMER CT ordered to r/o any bleeding prior to hypothermia protocol consider hypothermia protocol 2. Hypokalemia replace potassium 3. Hyperglycemia r/o DM F/U HbaIC 4. Elevated LFT F/U repeat LFT 5. Prophylaxix Protonix 40mg IVP QD Wait for imaging before starting AO
--- NOTE | 2017-07-23 20:51 | CT ---
EXAM: CT Head Without Intravenous Contrast CLINICAL HISTORY: 67 years old, female; Signs and symptoms; Other: Possible CVA TECHNIQUE: Axial computed tomography images of the head/brain without intravenous contrast. All CT scans at this facility use one or more dose reduction techniques, viz.: automated exposure control; ma/kV adjustment per patient size (including targeted exams where dose is matched to indication; i.e. head); or iterative reconstruction technique. Coronal and sagittal reformatted images were created and reviewed. COMPARISON: No relevant prior studies available. FINDINGS: Brain: Mild atrophy. No intracranial hemorrhage. No mass. Few scattered foci of decreased attenuation within periventricular/subcortical white matter. No definite edema. Ventricles: No hydrocephalus. Bones/joints: No acute fracture. Soft tissues: Unremarkable. Vasculature: Minimal atherosclerotic disease of intracranial arteries. Sinuses: Scattered minimal mucosal thickening. Mastoid air cells: No mastoid effusion. Orbits: Unremarkable as visualized. IMPRESSION: 1. Nonspecific white matter changes. Acute infarction may be CT occult within first 24 hours. If a focal deficit persists, consider followup CT or MRI for further evaluation. 2. Incidental/non-acute findings are described above.
[2017-07-24] MEDS: Sodium Bicarbonate 8.4% 100 MEQ in Sodium Chloride 0.45% 900 ML IV SCH (00:09)
[2017-07-24] MEDS: Sodium Chloride 0.9% 1,000 ML IV SCH ×2 (00:11→17:42)
[2017-07-24] MEDS: (Novolin R) Insulin Human Regular 100 units/ml vial SC SCH ×4 (00:42→21:58)
--- NOTE | 2017-07-24 00:45 | CON ---
DATE: NEUROSURGICAL CONSULTATION ATTENDING PHYSICIAN: Dr. Justin Hunter. REASON FOR CONSULTATION: Status post cardiac arrest. HISTORY OF PRESENT ILLNESS: The patient is a 67-year-old right-handed lady with no significant past medical history, who was in normal health, visiting from [place], [place], visiting her son and patient had her dinner last night with no complaints. Patient woke up at 2:00 in the morning complaining of being very hot and with chest pain. The son tried to call 911, but the patient insisted that she was okay, then around 4:30 in the morning, patient was found to be on the floor unresponsive and the son started CPR, called 911 and the patient had atrial fibrillation and then had STEMI and code was started. The patient, on arrival to the Emergency Room, the code was canceled due to no corneal reflex and no pupillary reflex. Patient was intubated and unresponsive, but patient woke up gradually while in ICU and patient became more responsive and patient was extubated and a Neuro consult was requested for evaluation to rule out any CVA. Patient is now awake, alert, makes good eye contact. The son is at bedside. PAST MEDICAL HISTORY: No significant past medical history. MEDICATIONS: None in the past. SOCIAL HISTORY: No smoking, no ethanol or drug user. ALLERGIES: NO KNOWN ALLERGIC REACTION TO MEDICATIONS. PHYSICAL EXAMINATION VITAL SIGNS: Blood pressure 155/53, pulse 83, respiration 22, pulse ox 100%, temperature 96.3. MENTAL STATE: The patient is alert, awake, oriented to person and place, partially to time, slow mental processing, decreased attention span, able to follow one-to-two step commands, unable to follow three-step commands, responds to questions, it takes time to respond. Patient is to be given clues for the answers to answer, has difficulty repeating days backwards, able to repeat forward. CRANIAL NERVES: Pupils symmetric and reactive. No facial asymmetry. No field defect. Tongue midline. Gag intact. Hoarseness post intubation. V1 to V3 intact. Neck supple. MOTOR: Normal tone in upper and lower extremities, able to lift her upper and lower extremities against gravity and mild resistance. Deep tendon reflexes 2 in the upper extremities, 2 at the left knee, 1 at the right knee, 2 at the ankles. Plantar flexion both sides. There is no clonus. Coordination: [id number] intact. IMPRESSION: Status post cardiopulmonary arrest with mild encephalopathy, most likely secondary to hypoxia and anoxia. We will do CAT scan to rule out cerebrovascular accident and electroencephalogram to rule out subclinical seizures, which I doubt at and see if there is any biphasic and triphasic waves secondary to anoxia and hypoxia due to cardiopulmonary arrest. Above discussed with the son and the patient at length. At this point, no further workup recommended. Thank you for the consultation. Sonny Philip MD [email or web address]
[2017-07-24 04:52] LABS: BASO % 0.2 % (0.0-2.0); HEMOGLOBIN 10.1 g/dL (11.0-16.0); LYMPH # 1.7 K/uL (1.0-4.3); LYMPH % 11.1 % (20.0-40.0); MEAN CELL VOLUME 86.2 fL (81.0-99.0); MEAN CORPUSCULAR HEMOGLOBIN 29.4 pg (27.0-31.0); MEAN CORPUSCULAR HGB CONC 34.1 g/dL (33.0-37.0); MEAN PLATELET VOLUME 9.9 fL (7.2-11.7); MONO # 0.6 K/uL (0.0-0.8); MONO % 4.2 % (0.0-10.0); NEUT # 12.9 K/uL (1.8-7.0); NEUT % 84.5 % (50.0-75.0); RBC 3.45 Mil/uL (3.80-5.20); RED CELL DISTRIBUTION WIDTH 13.5 % (11.5-14.5); WHITE BLOOD COUNT 15.3 K/uL (4.8-10.8)
[2017-07-24 07:31] LABS: ALBUMIN 2.9 g/dL (3.5-5.0); ALT/SGPT 323 U/L (9-52); AST/SGOT 339 U/L (14-36); BLOOD UREA NITROGEN 18 mg/dL (7-17); CALCIUM 6.9 mg/dl (8.6-10.4); GFR AFRICAN-AMERICAN > 60; GFR NON-AFRICAN AMERICAN > 60
--- NOTE | 2017-07-24 09:14 | CP.PCM.PN ---
Subjective - Date & Time of Evaluation Date of Evaluation: 07/24/17 Time of Evaluation: 08:55 - Subjective Subjective: seen and examined Patient is alert and orientedX3,No complain,denies chest pain.No SOB Objective - Vital Signs/Intake and Output Vital Signs (last 24 hours): Temp Pulse Resp BP Pulse Ox 98.3 F 90 36 H 111/53 L 99 07/24/17 00:00 07/24/17 07:13 07/24/17 07:13 07/24/17 07:13 07/24/17 07:13 Intake and Output: 07/24/17 07/24/17 06:59 18:59 Intake Total 1618.5 Output Total 490 Balance 1128.5 - Medications Medications: Current Medications Aspirin (Ecotrin) 81 mg PO DAILY [facility] Clopidogrel Bisulfate (Plavix) 75 mg PO DAILY [facility] Last Admin: 07/23/17 21:54 Dose: 75 mg Dextrose (Dextrose 50% Inj) 0 ml IV STAT PRN; Protocol PRN Reason: Hypoglycemia Protocol Dextrose (Glutose 15) 0 gm PO ONCE PRN; Protocol PRN Reason: Hypoglycemia Protocol Glucagon (Glucagen Diagnostic Kit) 0 mg IM STAT PRN; Protocol PRN Reason: Hypoglycemia Protocol Heparin Sodium/Sodium Chloride (Heparin 02154 Units/250ml 1/2 Normal Saline) 25 ,000 units in 250 mls @ 5.987 mls/hr IV .Q24H PRN; Protocol; 12 UNITS/KG/HR PRN Reason: ADJUST RATE PER PROTOCOL Last Titration: 07/23/17 17:15 Dose: 9 units/kg/hr, 4.491 mls/hr Dextrose (Dextrose 5% In Water 1000 Ml) 1,000 mls @ 0 mls/hr IV .Q0M PRN; Protocol; Per Protocol PRN Reason: Hypoglycemia Protocol Sodium Chloride (Sodium Chloride 0.9%) 1,000 mls @ 60 mls/hr IV .[id number] [facility] Last Admin: 07/24/17 00:11 Dose: 60 mls/hr Insulin Human Regular (Novolin R) 0 unit SC Q6 [facility] PRN Reason: Protocol Last Admin: 07/24/17 06:37 Dose: Not Given Pantoprazole Sodium (Protonix Inj) 40 mg IVP DAILY [facility] Last Admin: 07/23/17 10:34 Dose: 40 mg Pneumococcal Polyvalent Vaccine (Pneumovax 23 Vaccine) 0.5 ml IM .ONCE ONE Stop: 07/25/17 10:01 Rosuvastatin Calcium (Crestor) 20 mg PO HS [facility] Last Admin: 07/23/17 21:07 Dose: 20 mg - Labs Labs: 07/24/17 04:45 07/24/17 06:41 PT 12.4 SECONDS (9.7-12.2) H 07/23/17 15:41 INR 1.1 07/23/17 15:41 APTT 48 SECONDS (21-34) H D 07/24/17 04:45 - Constitutional Appears: Non-toxic - Head Exam Head Exam: NORMAL INSPECTION - Eye Exam Eye Exam: Normal appearance - ENT Exam ENT Exam: Mucous Membranes Moist - Neck Exam Neck Exam: Full ROM - Respiratory Exam Respiratory Exam: Clear to Ausculation Bilateral, NORMAL BREATHING PATTERN - Cardiovascular Exam Cardiovascular Exam: REGULAR RHYTHM - GI/Abdominal Exam GI & Abdominal Exam: Soft, Normal Bowel Sounds - Extremities Exam Extremities Exam: Full ROM - Back Exam Back Exam: NORMAL INSPECTION - Neurological Exam Neurological Exam: Awake, Oriented x3 - Psychiatric Exam Psychiatric exam: Flat Affect - Skin Skin Exam: Dry Assessment and Plan - Assessment and Plan (Free Text) Assessment: This is a 67 years old female admitted to the [facility] for Respiratory Failure, Cardiac Arrest, and STEMI. Son Jamie explains that patient is visiting from [place] and staying with him. She was doing fine on 07/22/17. However, she awoke at 2 AM 07/23/17 complaining chest pain. Then around 4:30 AM patient was found on the floor nonresponsive and Jamie started CPR and called 911. As per admission H&P,Found to have PEA given epinephrine and patient went into [facility], patient was shocked twice and given 300 mg and 150 mg of amiodarone. Patient was intubated. Her EKG showed ST elevation [place]. Therefore CODE HEART was called. However, after she arrived to the ER, the [facility] was cancelled due to NO corneal and NO pupillary reflex.She was admitted to ICU.She started responding and extubated.This morning she was alert oriented without focal weakness she is chest pain free and EKG normalized.Ct brain negative for bleeding.On asprin,plavix and heparin Plan: 1.Acute STEMI/s/p Cardiac arrest/s/p extubated on 07/23 Normal lipids,Ha1c 6.3 continue asprin,plavix,statin and heparin supervisor [employer] consult appreciated.planning for cardiac cath tomorrow NPO after dinner tonight Echocardiogram repeat CT brain Prolonged cardiac arrest -neurology consult Dr Chapin 2.Prophylaxis GI on protonix DVT on heparin
--- NOTE | 2017-07-24 18:49 | CP.CCUPN ---
CCU Subjective - Physician Review Events Since Last Encounter (Free Text): 07/24/17 18:47 alert and answers most question appropriately. CCU Objective - Vital Signs / Intake & Output Vital Signs (Last 4 hours): Vital Signs Temp Pulse Resp BP Pulse Ox 07/24/17 18:13 99 H 30 H 105/57 L 99 07/24/17 18:00 116 H 26 H 07/24/17 17:13 90 29 H 108/54 L 94 L 07/24/17 17:00 89 27 H 92 L 07/24/17 16:13 99 H 33 H 120/56 L 93 L 07/24/17 16:00 98.7 F 100 H 40 H 92 L 07/24/17 15:13 88 29 H 129/66 100 07/24/17 15:00 86 32 H 99 Intake and Output (Last 8hrs): Intake & Output 07/24/17 07/24/17 07/24/17 06:59 14:59 22:59 Intake Total 760.5 358.0 293.5 Output Total 200 800 Balance 560.5 358.0 -506.5 Weight 107 lb Intake: Intake, IV Amount 760.5 258.0 193.5 Right Forearm 720 240 180 Right Wrist 40.5 18.0 13.5 Oral 100 100 Output: Urine 200 800 Urethral (Blake) 200 400 Urine, Voided 400 - Physical Exam Head: Positive for: Atraumatic, Normocephalic Pupils: Positive for: PERRL Extroacular Muscles: Positive for: EOMI Mouth: Positive for: Moist Mucous Membranes Respiratory/Chest: Positive for: Clear to Auscultation Cardiovascular: Positive for: Regular Rate and Rhythm Abdomen: Positive for: Normal Bowel Sounds. Negative for: Tenderness, Distention Neurological: Positive for: GCS=15, CN II-XII Intact Psychiatric: Positive for: Alert, Oriented x 3 - Medications Active Medications: Active Medications Generic Name Dose Route Start Last Admin Trade Name Freq PRN Reason Stop Dose Admin Acetaminophen 650 mg 07/24/17 16:22 07/24/17 16:43 Tylenol 325mg Tab PO 650 mg Q6 PRN Administration Pain, Mild (1-3) Aspirin 81 mg 07/24/17 10:00 07/24/17 10:03 Ecotrin PO 81 mg DAILY [facility]ENNA Administration Clopidogrel Bisulfate 75 mg 07/23/17 22:00 07/24/17 10:03 Plavix PO 75 mg DAILY [facility] Administration Dextrose 0 ml 07/23/17 11:30 Dextrose 50% Inj IV STAT PRN Hypoglycemia Protocol Protocol Dextrose 0 gm 07/23/17 11:30 Glutose 15 PO ONCE PRN Hypoglycemia Protocol Protocol Glucagon 0 mg 07/23/17 11:30 Glucagen Diagnostic Kit IM STAT PRN Hypoglycemia Protocol Protocol Heparin Sodium/Sodium Chloride 25,000 units in 250 mls @ 5.987 mls/hr 09:00 07/23/17 17:15 Heparin 14378 Units/250ml 1/2 Normal Saline IV 9 units/kg/hr .Q24H PRN 4.491 mls/hr ADJUST RATE PER PROTOCOL Titration Protocol 12 UNITS/KG/HR Dextrose 1,000 mls @ 0 mls/hr 07/23/17 11:30 Dextrose 5% In Water 1000 Ml IV .Q0M PRN Hypoglycemia Protocol Protocol Per Protocol Sodium Chloride 1,000 mls @ 60 mls/hr 07/23/17 20:45 07/24/17 17:42 Sodium Chloride 0.9% IV Not Given .[id number] ON LICENSE OF [facility] Insulin Human Regular 0 unit 07/24/17 11:30 07/24/17 17:41 Novolin R SC Not Given ACHS ON LICENSE OF [facility] Protocol Pantoprazole Sodium 40 mg 07/23/17 10:00 07/24/17 10:03 Protonix Inj IVP 40 mg DAILY [facility] Administration Pneumococcal Polyvalent Vaccine 0.5 ml 07/25/17 10:00 Pneumovax 23 Vaccine IM 07/25/17 10:01 .ONCE ONE Rosuvastatin Calcium 20 mg 07/23/17 22:00 07/23/17 21:07 Crestor PO 20 mg HS [facility] Administration - Patient Studies Lab Studies: Microbiology Studies 07/23/17 11:22 Blood Culture - Preliminary Blood-Venous NO GROWTH AFTER 24 HOURS 07/23/17 11:22 Blood Culture - Preliminary Blood-Venous NO GROWTH AFTER 24 HOURS 07/23/17 09:06 MRSA Culture (Admit) - Final Nose MRSA NOT DETECTED 07/23/17 11:22 Urine Culture - Final Urine,Catheterized No Growth (<1,000 CFU/ML) Lab Studies 07/24/17 07/24/17 07/24/17 Range/Units 11:25 06:41 06:27 WBC (4.8-10.8) K/uL RBC (3.80-5.20) Mil/uL Hgb (11.0-16.0) g/dL Hct (34.0-47.0) % MCV (81.0-99.0) fL MCH (27.0-31.0) pg MCHC (33.0-37.0) g/dL RDW (11.5-14.5) % Plt Count (130-400) K/uL MPV (7.2-11.7) fL Neut % (Auto) (50.0-75.0) % Lymph % (Auto) (20.0-40.0) % Calvert % (Auto) (0.0-10.0) % Eos % (Auto) (0.0-4.0) % Baso % (Auto) (0.0-2.0) % Neut # (1.8-7.0) K/uL Lymph # (1.0-4.3) K/uL Calvert # (0.0-0.8) K/uL Eos # (0.0-0.7) K/uL Baso # (0.0-0.2) K/uL APTT (21-34) SECONDS Sodium 133 Potassium 4.9 Chloride 103 Carbon Dioxide 26 Anion Gap 9 L BUN 18 H Creatinine 0.8 Est GFR ( Amer) > 60 Est GFR (Non-Af Amer) > 60 POC Glucose (mg/dL) 101 104 (65-110) mg/dL Random Glucose 105 Calcium 6.9 L Phosphorus Magnesium Total Bilirubin 1.6 H AST 339 H D ALT 323 H D Alkaline Phosphatase 29 L D Troponin I (0.00-0.120) ng/mL Total Protein 5.8 L Albumin 2.9 L Globulin 2.9 Albumin/Globulin Ratio 1.0 07/24/17 07/24/17 07/24/17 Range/Units 04:45 04:45 04:45 WBC 15.3 H (4.8-10.8) K/uL RBC 3.45 L (3.80-5.20) Mil/uL Hgb 10.1 L D (11.0-16.0) g/dL Hct 29.7 L (34.0-47.0) % MCV 86.2 D (81.0-99.0) fL MCH 29.4 (27.0-31.0) pg MCHC 34.1 (33.0-37.0) g/dL RDW 13.5 (11.5-14.5) % Plt Count 224 (130-400) K/uL MPV 9.9 (7.2-11.7) fL Neut % (Auto) 84.5 H (50.0-75.0) % Lymph % (Auto) 11.1 L (20.0-40.0) % Calvert % (Auto) 4.2 (0.0-10.0) % Eos % (Auto) 0.0 (0.0-4.0) % Baso % (Auto) 0.2 (0.0-2.0) % Neut # 12.9 H (1.8-7.0) K/uL Lymph # 1.7 (1.0-4.3) K/uL Calvert # 0.6 (0.0-0.8) K/uL Eos # 0.0 (0.0-0.7) K/uL Baso # 0.0 (0.0-0.2) K/uL APTT 48 H D (21-34) SECONDS Sodium Cancelled Potassium Cancelled Chloride Cancelled Carbon Dioxide Cancelled Anion Gap Cancelled BUN Cancelled Creatinine Cancelled Est GFR ( Amer) Cancelled Est GFR (Non-Af Amer) Cancelled POC Glucose (mg/dL) (65-110) mg/dL Random Glucose Cancelled Calcium Cancelled Phosphorus Cancelled Magnesium Cancelled Total Bilirubin Cancelled AST Cancelled ALT Cancelled Alkaline Phosphatase Cancelled Troponin I Cancelled (0.00-0.120) ng/mL Total Protein Cancelled Albumin Cancelled Globulin Cancelled Albumin/Globulin Ratio Cancelled 07/24/17 07/23/17 07/23/17 Range/Units 00:19 22:18 19:30 WBC (4.8-10.8) K/uL RBC (3.80-5.20) Mil/uL Hgb (11.0-16.0) g/dL Hct (34.0-47.0) % MCV (81.0-99.0) fL MCH (27.0-31.0) pg MCHC (33.0-37.0) g/dL RDW (11.5-14.5) % Plt Count (130-400) K/uL MPV (7.2-11.7) fL Neut % (Auto) (50.0-75.0) % Lymph % (Auto) (20.0-40.0) % Calvert % (Auto) (0.0-10.0) % Eos % (Auto) (0.0-4.0) % Baso % (Auto) (0.0-2.0) % Neut # (1.8-7.0) K/uL Lymph # (1.0-4.3) K/uL Calvert # (0.0-0.8) K/uL Eos # (0.0-0.7) K/uL Baso # (0.0-0.2) K/uL APTT 57 H D (21-34) SECONDS Sodium Potassium Chloride Carbon Dioxide Anion Gap BUN Creatinine Est GFR ( Amer) Est GFR (Non-Af Amer) POC Glucose (mg/dL) 111 H (65-110) mg/dL Random Glucose Calcium Phosphorus Magnesium Total Bilirubin AST ALT Alkaline Phosphatase Troponin I 64.8000 H* (0.00-0.120) ng/mL Total Protein Albumin Globulin Albumin/Globulin Ratio Laboratory Results - last 24 hr 07/23/17 07/23/17 07/24/17 19:30 22:18 00:19 WBC RBC Hgb Hct MCV MCH MCHC RDW Plt Count MPV Neut % (Auto) Lymph % (Auto) Calvert % (Auto) Eos % (Auto) Baso % (Auto) Neut # Lymph # Calvert # Eos # Baso # APTT 57 H D Sodium Potassium Chloride Carbon Dioxide Anion Gap BUN Creatinine Est GFR ( Amer) Est GFR (Non-Af Amer) POC Glucose (mg/dL) 111 H Random Glucose Calcium Phosphorus Magnesium Total Bilirubin AST ALT Alkaline Phosphatase Troponin I 64.8000 H* Total Protein Albumin Globulin Albumin/Globulin Ratio 07/24/17 07/24/17 07/24/17 04:45 04:45 04:45 WBC 15.3 H RBC 3.45 L Hgb 10.1 L D Hct 29.7 L MCV 86.2 D MCH 29.4 MCHC 34.1 RDW 13.5 Plt Count 224 MPV 9.9 Neut % (Auto) 84.5 H Lymph % (Auto) 11.1 L Calvert % (Auto) 4.2 Eos % (Auto) 0.0 Baso % (Auto) 0.2 Neut # 12.9 H Lymph # 1.7 Calvert # 0.6 Eos # 0.0 Baso # 0.0 APTT 48 H D Sodium Cancelled Potassium Cancelled Chloride Cancelled Carbon Dioxide Cancelled Anion Gap Cancelled BUN Cancelled Creatinine Cancelled Est GFR ( Amer) Cancelled Est GFR (Non-Af Amer) Cancelled POC Glucose (mg/dL) Random Glucose Cancelled Calcium Cancelled Phosphorus Cancelled Magnesium Cancelled Total Bilirubin Cancelled AST Cancelled ALT Cancelled Alkaline Phosphatase Cancelled Troponin I Cancelled Total Protein Cancelled Albumin Cancelled Globulin Cancelled Albumin/Globulin Ratio Cancelled 07/24/17 07/24/17 07/24/17 06:27 06:41 11:25 WBC RBC Hgb Hct MCV MCH MCHC RDW Plt Count MPV Neut % (Auto) Lymph % (Auto) Calvert % (Auto) Eos % (Auto) Baso % (Auto) Neut # Lymph # Calvert # Eos # Baso # APTT Sodium 133 Potassium 4.9 Chloride 103 Carbon Dioxide 26 Anion Gap 9 L BUN 18 H Creatinine 0.8 Est GFR ( Amer) > 60 Est GFR (Non-Af Amer) > 60 POC Glucose (mg/dL) 104 101 Random Glucose 105 Calcium 6.9 L Phosphorus Magnesium Total Bilirubin 1.6 H AST 339 H D ALT 323 H D Alkaline Phosphatase 29 L D Troponin I Total Protein 5.8 L Albumin 2.9 L Globulin 2.9 Albumin/Globulin Ratio 1.0 EKG/Cardiology Studies: Cardiology / EKG Studies 07/24/17 12:30 EKG [ELECTROCARDIOGRAM] DAILY Comment: Mode Of Transportation: PORTABLE Reason For Exam: s/p Cardiac arrest 07/25/17 06:00 EKG [ELECTROCARDIOGRAM] Routine Comment: Mode Of Transportation: Reason For Exam: pre-cath 07/25/17 12:30 EKG [ELECTROCARDIOGRAM] DAILY Comment: Mode Of Transportation: PORTABLE Reason For Exam: s/p Cardiac arrest 07/26/17 12:30 EKG [ELECTROCARDIOGRAM] DAILY Comment: Mode Of Transportation: PORTABLE Reason For Exam: s/p Cardiac arrest Fingerstick Blood Sugar Results: 101 Review of Systems - Review of Systems All systems: reviewed and no additional remarkable complaints except (no complaints) Critical Care Progress Note - Nutrition Nutrition: Nutrition Category Date Time Status NPO Diet [DIET] Diets 07/24/17 Dinner Active Assessment/Plan (1) Cardiac arrest Assessment and plan: 67 year old female with h/o arthritis visiting son from [place] is brought to the ED via EMS with cardiac arrest. Patient was successfully extubated yesterday, in less than 12h after her cardiac arrest. She is scheduled for cardiac cath tomorrow. Clinically stable and remarkably improved. Critical care time 35 minutes. Current Visit: Yes Status: Acute
--- NOTE | 2017-07-24 20:04 | CP.PCM.PN ---
Subjective - Date & Time of Evaluation Date of Evaluation: 07/24/17 Time of Evaluation: 17:30 - Subjective Subjective: Patient seen and evaluated AAO X 3 Denies chest pain, dyspnea and palpitations Troponins trending down On IV Heparin, asa and plavix For cath tomorrow am Plan discussed with family Physical Examination - Constitutional Appears: Non-toxic - Head Exam Head Exam: NORMAL INSPECTION - Eye Exam Eye Exam: Normal appearance - ENT Exam ENT Exam: Mucous Membranes Moist - Neck Exam Neck Exam: Full ROM - Respiratory Exam Respiratory Exam: Clear to Ausculation Bilateral, NORMAL BREATHING PATTERN - Cardiovascular Exam Cardiovascular Exam: REGULAR RHYTHM - GI/Abdominal Exam GI & Abdominal Exam: Soft, Normal Bowel Sounds - Extremities Exam Extremities Exam: Full ROM - Back Exam Back Exam: NORMAL INSPECTION - Neurological Exam Neurological Exam: Awake, Oriented x3 - Psychiatric Exam Psychiatric exam: Flat Affect - Skin Skin Exam: Dry Objective - Vital Signs/Intake and Output Vital Signs (last 24 hours): Temp Pulse Resp BP Pulse Ox 98.7 F 99 H 30 H 105/57 L 99 07/24/17 16:00 07/24/17 18:13 07/24/17 18:13 07/24/17 18:13 07/24/17 18:13 Intake and Output: 07/24/17 07/25/17 18:59 06:59 Intake Total 651.5 Output Total 800 Balance -148.5 - Medications Medications: Current Medications Acetaminophen (Tylenol 325mg Tab) 650 mg PO Q6 PRN PRN Reason: Pain, Mild (1-3) Last Admin: 07/24/17 16:43 Dose: 650 mg Aspirin (Ecotrin) 81 mg PO DAILY [facility] Last Admin: 07/24/17 10:03 Dose: 81 mg Clopidogrel Bisulfate (Plavix) 75 mg PO DAILY [facility] Last Admin: 07/24/17 10:03 Dose: 75 mg Dextrose (Dextrose 50% Inj) 0 ml IV STAT PRN; Protocol PRN Reason: Hypoglycemia Protocol Dextrose (Glutose 15) 0 gm PO ONCE PRN; Protocol PRN Reason: Hypoglycemia Protocol Glucagon (Glucagen Diagnostic Kit) 0 mg IM STAT PRN; Protocol PRN Reason: Hypoglycemia Protocol Heparin Sodium/Sodium Chloride (Heparin 12825 Units/250ml 1/2 Normal Saline) 25 ,000 units in 250 mls @ 5.987 mls/hr IV .Q24H PRN; Protocol; 12 UNITS/KG/HR PRN Reason: ADJUST RATE PER PROTOCOL Last Titration: 07/23/17 17:15 Dose: 9 units/kg/hr, 4.491 mls/hr Dextrose (Dextrose 5% In Water 1000 Ml) 1,000 mls @ 0 mls/hr IV .Q0M PRN; Protocol; Per Protocol PRN Reason: Hypoglycemia Protocol Sodium Chloride (Sodium Chloride 0.9%) 1,000 mls @ 60 mls/hr IV .[id number] [facility] Last Admin: 07/24/17 17:42 Dose: Not Given Insulin Human Regular (Novolin R) 0 unit SC ACHS GLENNA PRN Reason: Protocol Last Admin: 07/24/17 17:41 Dose: Not Given Pantoprazole Sodium (Protonix Inj) 40 mg IVP DAILY [facility] Last Admin: 07/24/17 10:03 Dose: 40 mg Pneumococcal Polyvalent Vaccine (Pneumovax 23 Vaccine) 0.5 ml IM .ONCE ONE Stop: 07/25/17 10:01 Rosuvastatin Calcium (Crestor) 20 mg PO HS [facility] Last Admin: 07/23/17 21:07 Dose: 20 mg - Labs Labs: 07/24/17 04:45 07/24/17 06:41 PT 12.4 SECONDS (9.7-12.2) H 07/23/17 15:41 INR 1.1 07/23/17 15:41 APTT 48 SECONDS (21-34) H D 07/24/17 04:45 Assessment and Plan - Assessment and Plan (Free Text) Assessment: Assessment and Plan - Assessment and Plan (Free Text) Assessment: This is a 67 years old female admitted to the [facility] for Respiratory Failure, Cardiac Arrest, and STEMI. Son Jamie explains that patient is visiting from [place] and staying with him. She was doing fine on 07/22/17. However, she awoke at 2 AM 07/23/17 complaining chest pain. Then around 4:30 AM patient was found on the floor nonresponsive and Jamie started CPR and called 911. As per admission H&P,Found to have PEA given epinephrine and patient went into [facility], patient was shocked twice and given 300 mg and 150 mg of amiodarone. Patient was intubated. Her EKG showed ST elevation [place]. Therefore CODE HEART was called. However, after she arrived to the ER, the [facility] was cancelled due to NO corneal and NO pupillary reflex.She was admitted to ICU.She started responding and extubated.This morning she was alert oriented without focal weakness she is chest pain free.Ct brain negative for bleeding.On asprin,plavix and heparin Plan: 1.Acute STEMI/s/p Cardiac arrest/s/p extubated on 07/23 Normal lipids,Ha1c 6.3 continue asprin,plavix,statin and heparin For cardiac cath tomorrow NPO after dinner tonight Echocardiogram repeat CT brain Prolonged cardiac arrest -neurology consult Dr Chapin 2.Prophylaxis GI on protonix DVT on heparin
[2017-07-25 06:36] LABS: BASO % 0.1 % (0.0-2.0); HEMOGLOBIN 9.9 g/dL (11.0-16.0); LYMPH # 1.5 K/uL (1.0-4.3); LYMPH % 14.6 % (20.0-40.0); MEAN CELL VOLUME 87.1 fL (81.0-99.0); MEAN CORPUSCULAR HEMOGLOBIN 29.6 pg (27.0-31.0); MEAN PLATELET VOLUME 9.4 fL (7.2-11.7); MONO # 0.7 K/uL (0.0-0.8); MONO % 7.1 % (0.0-10.0); NEUT % 78.2 % (50.0-75.0); RBC 3.33 Mil/uL (3.80-5.20); RED CELL DISTRIBUTION WIDTH 13.7 % (11.5-14.5); WHITE BLOOD COUNT 10.2 K/uL (4.8-10.8)
[2017-07-25] MEDS: Heparin25000 units/250ml 1/2NS 25,000 UNITS/250 ML BAG IV PRN (06:38)
[2017-07-25 06:45] LABS: INR 1.1
[2017-07-25 06:50] LABS: ALB/GLOB RATIO 0.9 (1.0-2.1); ALBUMIN 2.8 g/dL (3.5-5.0); ALT/SGPT 273 U/L (9-52); AST/SGOT 153 U/L (14-36); BLOOD UREA NITROGEN 15 mg/dL (7-17); CALCIUM 7.7 mg/dl (8.6-10.4); CK-MB 10.9 ng/mL (0.0-3.38); GFR AFRICAN-AMERICAN > 60; GFR NON-AFRICAN AMERICAN > 60; MAGNESIUM 1.7 mg/dL (1.6-2.3)
[2017-07-25] MEDS: Sodium Chloride 0.9% 1,000 ML IV SCH (07:05)
--- NOTE | 2017-07-25 07:31 | PN ---
DATE: ATTENDING PHYSICIAN: Domenic Blanca DO. SUBJECTIVE: Patient is out of bed to chair. Her family at bedside. Doing significantly better than yesterday mentally, as per family. Patient denies any headache, chest pain, shortness of breath. PHYSICAL EXAMINATION: VITAL SIGNS: Blood pressure 111/53, pulse 99, respirations 36. NEUROLOGIC: Mental Status: Patient is alert, awake, oriented x3. Normal naming, repetition, and comprehension. No agnosia. No apraxia. Relatively good attention span and short-term memory compared to yesterday. Patient was able to spell cable forward and backward, able to repeat the months backward and the days backward. Calculation is intact. Patient knew her address, where she was born in [place] although she moved more than 6 years ago. Cranial Nerves: Pupils are symmetric and reactive, no facial asymmetry, no field defect. Motor: Normal tone in upper and lower extremities. No pronator drift. Upper and lower extremities, no focal deficit, 5/5. IMPRESSION: Mild encephalopathy, significantly improved, secondary to cardiopulmonary arrest. Patient is at her baseline, as per family. CAT scan of the brain reviewed, which was consistent with questionable hypodensity in the posterior frontal, in the centrum semiovale area. Patient will need a repeat CAT scan to confirm it or exclude it. Unfortunately, patient is claustrophobic and cannot do for MRI of the brain and I would not consider sedating the patient for the MRI; it might not gear changer at this point. Patient is currently on anticoagulation and above discussed with the family at bedside, all their questions and concerns were answered at length. Thank you for the consultation and Dr. Chapin will follow up the patient tomorrow. Sonny Philip MD
[2017-07-25] MEDS ORDERED: Potassium Chloride 20 mEq ER Tab PO ONE (08:35)
[2017-07-25] MEDS: (Novolin R) Insulin Human Regular 100 units/ml vial SC SCH ×2 (08:39→15:30)
--- NOTE | 2017-07-25 08:56 | CP.CCUPN ---
Addendum entered and electronically signed by Salina Mccullough DO 07/25/17 15:51: Per Dr. 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 Patient is to have a CABG [place] [facility] and likely not to transfer back Original Note: <Salina Mccullough - Last Filed: 07/25/17 15:09> CCU Subjective - Physician Review Subjective (Free Text): 07/25/17 08:[address] Laguna Patient seen and examined at bedside. Patient seen with Dr. Oscar in the morning , to be transferred [place] [facility] [place] cardiac cath procedure and to return when finished. 07/25/17 15:11 Critical Care Time Spent (in minutes): 35 CCU Objective - Vital Signs / Intake & Output Vital Signs (Last 4 hours): Vital Signs Pulse Resp BP Pulse Ox 07/25/17 07:12 102 H 35 H 125/70 94 L 07/25/17 07:00 103 H 37 H 99 07/25/17 06:45 89 32 H 124/67 98 07/25/17 06:00 100 H 33 H 100 07/25/17 05:00 90 35 H 88 L Intake and Output (Last 8hrs): Intake & Output 07/24/17 07/25/17 07/25/17 22:59 06:59 14:59 Intake Total 651.5 736.0 64.5 Output Total 1000 200 Balance -348.5 536.0 64.5 Intake: IV 220 Intake, IV Amount 451.5 516.0 64.5 Left Antecubital 18.0 36.0 4.5 Right Forearm 420 480 60 Right Wrist 13.5 Oral 200 Output: Urine 1000 200 Urethral (Blake) 400 Urine, Voided 600 200 Other: # Voids Urine, Voided 0 # Bowel Movements 0 - Physical Exam Head: Positive for: Atraumatic, Normocephalic Pupils: Positive for: PERRL Extroacular Muscles: Positive for: EOMI Mouth: Positive for: Moist Mucous Membranes Neck: Positive for: Normal Range of Motion, Trachea Midline Respiratory/Chest: Positive for: Clear to Auscultation. Negative for: Wheezes, Decreased Breath Sounds Cardiovascular: Positive for: Regular Rate and Rhythm, Normal S1, S2 Abdomen: Positive for: Normal Bowel Sounds. Negative for: Tenderness, Distention Neurological: Positive for: GCS=15, CN II-XII Intact Psychiatric: Positive for: Alert, Oriented x 3 - Medications Active Medications: Active Medications Generic Name Dose Route Start Last Admin Trade Name Freq PRN Reason Stop Dose Admin Acetaminophen 650 mg 07/24/17 16:22 07/24/17 16:43 Tylenol 325mg Tab PO 650 mg Q6 PRN Administration Pain, Mild (1-3) Aspirin 81 mg 07/24/17 10:00 07/25/17 08:29 Ecotrin PO 81 mg DAILY GLENNA Administration Clopidogrel Bisulfate 75 mg 07/23/17 22:00 07/25/17 08:29 Plavix PO 75 mg DAILY GLENNA Administration Dextrose 0 ml 07/23/17 11:30 Dextrose 50% Inj IV STAT PRN Hypoglycemia Protocol Protocol Dextrose 0 gm 07/23/17 11:30 Glutose 15 PO ONCE PRN Hypoglycemia Protocol Protocol Glucagon 0 mg 07/23/17 11:30 Glucagen Diagnostic Kit IM STAT PRN Hypoglycemia Protocol Protocol Heparin Sodium/Sodium Chloride 25,000 units in 250 mls @ 5.987 mls/hr 09:00 07/25/17 06:38 Heparin 09921 Units/250ml 1/2 Normal Saline IV 9 units/kg/hr .Q24H PRN 4.491 mls/hr ADJUST RATE PER PROTOCOL Administration Protocol 12 UNITS/KG/HR Dextrose 1,000 mls @ 0 mls/hr 07/23/17 11:30 Dextrose 5% In Water 1000 Ml IV .Q0M PRN Hypoglycemia Protocol Protocol Per Protocol Sodium Chloride 1,000 mls @ 60 mls/hr 07/23/17 20:45 07/25/17 07:05 Sodium Chloride 0.9% IV Not Given .[id number] GLENNA Insulin Human Regular 0 unit 07/24/17 11:30 07/25/17 08:39 Novolin R SC Not Given ACHS [facility] Protocol Pantoprazole Sodium 40 mg 07/23/17 10:00 07/24/17 10:03 Protonix Inj IVP 40 mg DAILY GLENNA Administration Pneumococcal Polyvalent Vaccine 0.5 ml 07/25/17 10:00 Pneumovax 23 Vaccine IM 07/25/17 10:01 .ONCE ONE Rosuvastatin Calcium 20 mg 07/23/17 22:00 07/24/17 21:59 Crestor PO 20 mg HS GLENNA Administration - Patient Studies Lab Studies: Microbiology Studies 07/23/17 11:22 Blood Culture - Preliminary Blood-Venous NO GROWTH AFTER 24 HOURS 07/23/17 11:22 Blood Culture - Preliminary Blood-Venous NO GROWTH AFTER 24 HOURS 07/23/17 09:06 MRSA Culture (Admit) - Final Nose MRSA NOT DETECTED 07/23/17 11:22 Urine Culture - Final Urine,Catheterized No Growth (<1,000 CFU/ML) Lab Studies 07/25/17 07/25/17 07/25/17 Range/Units 07:14 06:20 06:20 WBC 10.2 (4.8-10.8) K/uL RBC 3.33 L (3.80-5.20) Mil/uL Hgb 9.9 L (11.0-16.0) g/dL Hct 29.0 L (34.0-47.0) % MCV 87.1 (81.0-99.0) fL MCH 29.6 (27.0-31.0) pg MCHC 34.0 (33.0-37.0) g/dL RDW 13.7 (11.5-14.5) % Plt Count 138 (130-400) K/uL MPV 9.4 (7.2-11.7) fL Neut % (Auto) 78.2 H (50.0-75.0) % Lymph % (Auto) 14.6 L (20.0-40.0) % Tyler % (Auto) 7.1 (0.0-10.0) % Eos % (Auto) 0.0 (0.0-4.0) % Baso % (Auto) 0.1 (0.0-2.0) % Neut # 8.0 H (1.8-7.0) K/uL Lymph # 1.5 (1.0-4.3) K/uL Tyler # 0.7 (0.0-0.8) K/uL Eos # 0.0 (0.0-0.7) K/uL Baso # 0.0 (0.0-0.2) K/uL PT (9.7-12.2) SECONDS INR APTT (21-34) SECONDS Sodium 134 (132-148) mmol/L Potassium 3.5 L (3.6-5.2) mmol/L Chloride 101 (98-107) mmol/L Carbon Dioxide 26 (22-30) mmol/L Anion Gap 9 L (10-20) BUN 15 (7-17) mg/dL Creatinine 0.8 (0.7-1.2) mg/dL Est GFR ( Amer) > 60 Est GFR (Non-Af Amer) > 60 POC Glucose (mg/dL) 87 (65-110) mg/dL Random Glucose 96 (65-105) mg/dL Calcium 7.7 L (8.6-10.4) mg/dl Phosphorus 2.3 L (2.5-4.5) mg/dL Magnesium 1.7 (1.6-2.3) mg/dL Total Bilirubin 0.8 (0.2-1.3) mg/dL AST 153 H D (14-36) U/L ALT 273 H (9-52) U/L Alkaline Phosphatase 53 (38-126) U/L Total Creatine Kinase 418 H (30-135) U/L CK-MB (Mass) 10.9 H (0.0-3.38) ng/mL Troponin I 18.6000 H* (0.00-0.120) ng/mL Total Protein 5.8 L (6.3-8.3) g/dL Albumin 2.8 L (3.5-5.0) g/dL Globulin 3.0 (2.2-3.9) gm/dL Albumin/Globulin Ratio 0.9 L (1.0-2.1) 07/25/17 07/24/17 07/24/17 Range/Units 06:20 21:48 17:40 WBC (4.8-10.8) K/uL RBC (3.80-5.20) Mil/uL Hgb (11.0-16.0) g/dL Hct (34.0-47.0) % MCV (81.0-99.0) fL MCH (27.0-31.0) pg MCHC (33.0-37.0) g/dL RDW (11.5-14.5) % Plt Count (130-400) K/uL MPV (7.2-11.7) fL Neut % (Auto) (50.0-75.0) % Lymph % (Auto) (20.0-40.0) % Tyler % (Auto) (0.0-10.0) % Eos % (Auto) (0.0-4.0) % Baso % (Auto) (0.0-2.0) % Neut # (1.8-7.0) K/uL Lymph # (1.0-4.3) K/uL Tyler # (0.0-0.8) K/uL Eos # (0.0-0.7) K/uL Baso # (0.0-0.2) K/uL PT 12.0 (9.7-12.2) SECONDS INR 1.1 APTT 35 H D (21-34) SECONDS Sodium (132-148) mmol/L Potassium (3.6-5.2) mmol/L Chloride (98-107) mmol/L Carbon Dioxide (22-30) mmol/L Anion Gap (10-20) BUN (7-17) mg/dL Creatinine (0.7-1.2) mg/dL Est GFR ( Amer) Est GFR (Non-Af Amer) POC Glucose (mg/dL) 101 101 (65-110) mg/dL Random Glucose (65-105) mg/dL Calcium (8.6-10.4) mg/dl Phosphorus (2.5-4.5) mg/dL Magnesium (1.6-2.3) mg/dL Total Bilirubin (0.2-1.3) mg/dL AST (14-36) U/L ALT (9-52) U/L Alkaline Phosphatase (38-126) U/L Total Creatine Kinase (30-135) U/L CK-MB (Mass) (0.0-3.38) ng/mL Troponin I (0.00-0.120) ng/mL Total Protein (6.3-8.3) g/dL Albumin (3.5-5.0) g/dL Globulin (2.2-3.9) gm/dL Albumin/Globulin Ratio (1.0-2.1) 07/24/17 Range/Units 11:25 WBC (4.8-10.8) K/uL RBC (3.80-5.20) Mil/uL Hgb (11.0-16.0) g/dL Hct (34.0-47.0) % MCV (81.0-99.0) fL MCH (27.0-31.0) pg MCHC (33.0-37.0) g/dL RDW (11.5-14.5) % Plt Count (130-400) K/uL MPV (7.2-11.7) fL Neut % (Auto) (50.0-75.0) % Lymph % (Auto) (20.0-40.0) % Tyler % (Auto) (0.0-10.0) % Eos % (Auto) (0.0-4.0) % Baso % (Auto) (0.0-2.0) % Neut # (1.8-7.0) K/uL Lymph # (1.0-4.3) K/uL Tyler # (0.0-0.8) K/uL Eos # (0.0-0.7) K/uL Baso # (0.0-0.2) K/uL PT (9.7-12.2) SECONDS INR APTT (21-34) SECONDS Sodium (132-148) mmol/L Potassium (3.6-5.2) mmol/L Chloride (98-107) mmol/L Carbon Dioxide (22-30) mmol/L Anion Gap (10-20) BUN (7-17) mg/dL Creatinine (0.7-1.2) mg/dL Est GFR ( Amer) Est GFR (Non-Af Amer) POC Glucose (mg/dL) 101 (65-110) mg/dL Random Glucose (65-105) mg/dL Calcium (8.6-10.4) mg/dl Phosphorus (2.5-4.5) mg/dL Magnesium (1.6-2.3) mg/dL Total Bilirubin (0.2-1.3) mg/dL AST (14-36) U/L ALT (9-52) U/L Alkaline Phosphatase (38-126) U/L Total Creatine Kinase (30-135) U/L CK-MB (Mass) (0.0-3.38) ng/mL Troponin I (0.00-0.120) ng/mL Total Protein (6.3-8.3) g/dL Albumin (3.5-5.0) g/dL Globulin (2.2-3.9) gm/dL Albumin/Globulin Ratio (1.0-2.1) Laboratory Results - last 24 hr 07/24/17 07/24/17 07/24/17 11:25 17:40 21:48 WBC RBC Hgb Hct MCV MCH MCHC RDW Plt Count MPV Neut % (Auto) Lymph % (Auto) Tyler % (Auto) Eos % (Auto) Baso % (Auto) Neut # Lymph # Tyler # Eos # Baso # PT INR APTT Sodium Potassium Chloride Carbon Dioxide Anion Gap BUN Creatinine Est GFR ( Amer) Est GFR (Non-Af Amer) POC Glucose (mg/dL) 101 101 101 Random Glucose Calcium Phosphorus Magnesium Total Bilirubin AST ALT Alkaline Phosphatase Total Creatine Kinase CK-MB (Mass) Troponin I Total Protein Albumin Globulin Albumin/Globulin Ratio 07/25/17 07/25/17 07/25/17 06:20 06:20 06:20 WBC 10.2 RBC 3.33 L Hgb 9.9 L Hct 29.0 L MCV 87.1 MCH 29.6 MCHC 34.0 RDW 13.7 Plt Count 138 MPV 9.4 Neut % (Auto) 78.2 H Lymph % (Auto) 14.6 L Tyler % (Auto) 7.1 Eos % (Auto) 0.0 Baso % (Auto) 0.1 Neut # 8.0 H Lymph # 1.5 Tyler # 0.7 Eos # 0.0 Baso # 0.0 PT 12.0 INR 1.1 APTT 35 H D Sodium 134 Potassium 3.5 L Chloride 101 Carbon Dioxide 26 Anion Gap 9 L BUN 15 Creatinine 0.8 Est GFR ( Amer) > 60 Est GFR (Non-Af Amer) > 60 POC Glucose (mg/dL) Random Glucose 96 Calcium 7.7 L Phosphorus 2.3 L Magnesium 1.7 Total Bilirubin 0.8 AST 153 H D ALT 273 H Alkaline Phosphatase 53 Total Creatine Kinase 418 H CK-MB (Mass) 10.9 H Troponin I 18.6000 H* Total Protein 5.8 L Albumin 2.8 L Globulin 3.0 Albumin/Globulin Ratio 0.9 L 07/25/17 07:14 WBC RBC Hgb Hct MCV MCH MCHC RDW Plt Count MPV Neut % (Auto) Lymph % (Auto) Tyler % (Auto) Eos % (Auto) Baso % (Auto) Neut # Lymph # Tyler # Eos # Baso # PT INR APTT Sodium Potassium Chloride Carbon Dioxide Anion Gap BUN Creatinine Est GFR ( Amer) Est GFR (Non-Af Amer) POC Glucose (mg/dL) 87 Random Glucose Calcium Phosphorus Magnesium Total Bilirubin AST ALT Alkaline Phosphatase Total Creatine Kinase CK-MB (Mass) Troponin I Total Protein Albumin Globulin Albumin/Globulin Ratio EKG/Cardiology Studies: Cardiology / EKG Studies 07/24/17 12:30 EKG [ELECTROCARDIOGRAM] DAILY Comment: Mode Of Transportation: PORTABLE Reason For Exam: s/p Cardiac arrest 07/25/17 06:00 EKG [ELECTROCARDIOGRAM] Routine Comment: Mode Of Transportation: Reason For Exam: pre-cath 07/25/17 12:30 EKG [ELECTROCARDIOGRAM] DAILY Comment: Mode Of Transportation: PORTABLE Reason For Exam: s/p Cardiac arrest 07/26/17 12:30 EKG [ELECTROCARDIOGRAM] DAILY Comment: Mode Of Transportation: PORTABLE Reason For Exam: s/p Cardiac arrest Fingerstick Blood Sugar Results: 101 Critical Care Progress Note - Nutrition Nutrition: Nutrition Category Date Time Status NPO Diet [DIET] Diets 07/24/17 Dinner Active Assessment/Plan - Assessment and Plan (Free Text) Assessment: 67F presents with after cardiac arrest, intubated, cpr on scene, patient achieved ROSC and was found to have anterolateral wall OK. 07/23 04:59 patient arrived by EMS s/p cardiac arrest. Patient was not feeling well 2hours prior and collapse when she went to the bathroom. Patient was found by family to be unresponsive and CPR was initiated. Patient was given CPR, went into vtach after epinephrine administration. Patient was shocked twice and given 150 mg and 300mg of amiodarone. Patient was intubated, ROSC obtained. EKG shows acute anterolateral wall OK. Neuro EEG 07/23 CT head without contrast: nonspecific white matter changes acute infarct may be CT occult within first 24 hours. consider f/u CT or MRI for further evaluation. f/u f/u CT Head w/o Contrast Neuro Consult: Dr. Chapin Cardio STEMI 07/24 EKG 07/25 EKG Rosuvastatin 20mg PO QHS Plavix 75mg PO QD ASA 81 mg PO QD 07/23 07:40 Cardio Consult: Dr. Umanzor 07/23 11:28 Cardio Consult: Dr. Oscar 07/25/17 Patient transferred [place] [facility] [place] Pulm: ABG, Ventilator Settings 07/23 extubate patient Endo: Accucheck ACHS Heme/Onc 07/25/17 9.9 07/24/17 10.1/29.7 07/23 13.1/39.6 ID: blood culture Prophylaxis DVT: Heparin Drip 25,000 u/ 250cc 07/25 NS @12 u/kg/hr GI: Pantoprazole 40mg IVP QD 07/25/17 Patient transferred [place] [facility] [place] cardiac intervention Dr. Jase Mccullough DO PGY1 - Date & Time Date: 07/25/17 Time: 15:11 <Maldonado Laguna - Last Filed: 07/25/17 18:06> CCU Objective - Vital Signs / Intake & Output Intake and Output (Last 8hrs): Intake & Output 07/25/17 07/25/17 07/25/17 06:59 14:59 22:59 Intake Total 736.0 206.5 Output Total 200 200 Balance 536.0 6.5 Intake: IV 220 12 Intake, IV Amount 516.0 194.5 Left Antecubital 36.0 14.5 Right Forearm 480 180 Output: Urine 200 200 Urine, Voided 200 200 - Patient Studies Lab Studies: Microbiology Studies 07/23/17 11:22 Blood Culture - Preliminary Blood-Venous NO GROWTH AFTER 48 HOURS 07/23/17 11:22 Blood Culture - Preliminary Blood-Venous NO GROWTH AFTER 48 HOURS Lab Studies 07/25/17 07/25/17 07/25/17 Range/Units 07:14 06:20 06:20 WBC 10.2 (4.8-10.8) K/uL RBC 3.33 L (3.80-5.20) Mil/uL Hgb 9.9 L (11.0-16.0) g/dL Hct 29.0 L (34.0-47.0) % MCV 87.1 (81.0-99.0) fL MCH 29.6 (27.0-31.0) pg MCHC 34.0 (33.0-37.0) g/dL RDW 13.7 (11.5-14.5) % Plt Count 138 (130-400) K/uL MPV 9.4 (7.2-11.7) fL Neut % (Auto) 78.2 H (50.0-75.0) % Lymph % (Auto) 14.6 L (20.0-40.0) % Tyler % (Auto) 7.1 (0.0-10.0) % Eos % (Auto) 0.0 (0.0-4.0) % Baso % (Auto) 0.1 (0.0-2.0) % Neut # 8.0 H (1.8-7.0) K/uL Lymph # 1.5 (1.0-4.3) K/uL Tyler # 0.7 (0.0-0.8) K/uL Eos # 0.0 (0.0-0.7) K/uL Baso # 0.0 (0.0-0.2) K/uL PT (9.7-12.2) SECONDS INR APTT (21-34) SECONDS Sodium 134 (132-148) mmol/L Potassium 3.5 L (3.6-5.2) mmol/L Chloride 101 (98-107) mmol/L Carbon Dioxide 26 (22-30) mmol/L Anion Gap 9 L (10-20) BUN 15 (7-17) mg/dL Creatinine 0.8 (0.7-1.2) mg/dL Est GFR ( Amer) > 60 Est GFR (Non-Af Amer) > 60 POC Glucose (mg/dL) 87 (65-110) mg/dL Random Glucose 96 (65-105) mg/dL Calcium 7.7 L (8.6-10.4) mg/dl Phosphorus 2.3 L (2.5-4.5) mg/dL Magnesium 1.7 (1.6-2.3) mg/dL Total Bilirubin 0.8 (0.2-1.3) mg/dL AST 153 H D (14-36) U/L ALT 273 H (9-52) U/L Alkaline Phosphatase 53 (38-126) U/L Total Creatine Kinase 418 H (30-135) U/L CK-MB (Mass) 10.9 H (0.0-3.38) ng/mL Troponin I 18.6000 H* (0.00-0.120) ng/mL Total Protein 5.8 L (6.3-8.3) g/dL Albumin 2.8 L (3.5-5.0) g/dL Globulin 3.0 (2.2-3.9) gm/dL Albumin/Globulin Ratio 0.9 L (1.0-2.1) Hepatitis A IgM Ab (NEGATIVE) Hep Bs Antigen (NEGATIVE) Hep B Core IgM Ab (NEGATIVE) Hepatitis C Antibody (NEGATIVE) 07/25/17 07/24/17 07/24/17 Range/Units 06:20 21:48 17:40 WBC (4.8-10.8) K/uL RBC (3.80-5.20) Mil/uL Hgb (11.0-16.0) g/dL Hct (34.0-47.0) % MCV (81.0-99.0) fL MCH (27.0-31.0) pg MCHC (33.0-37.0) g/dL RDW (11.5-14.5) % Plt Count (130-400) K/uL MPV (7.2-11.7) fL Neut % (Auto) (50.0-75.0) % Lymph % (Auto) (20.0-40.0) % Tyler % (Auto) (0.0-10.0) % Eos % (Auto) (0.0-4.0) % Baso % (Auto) (0.0-2.0) % Neut # (1.8-7.0) K/uL Lymph # (1.0-4.3) K/uL Tyler # (0.0-0.8) K/uL Eos # (0.0-0.7) K/uL Baso # (0.0-0.2) K/uL PT 12.0 (9.7-12.2) SECONDS INR 1.1 APTT 35 H D (21-34) SECONDS Sodium (132-148) mmol/L Potassium (3.6-5.2) mmol/L Chloride (98-107) mmol/L Carbon Dioxide (22-30) mmol/L Anion Gap (10-20) BUN (7-17) mg/dL Creatinine (0.7-1.2) mg/dL Est GFR ( Amer) Est GFR (Non-Af Amer) POC Glucose (mg/dL) 101 101 (65-110) mg/dL Random Glucose (65-105) mg/dL Calcium (8.6-10.4) mg/dl Phosphorus (2.5-4.5) mg/dL Magnesium (1.6-2.3) mg/dL Total Bilirubin (0.2-1.3) mg/dL AST (14-36) U/L ALT (9-52) U/L Alkaline Phosphatase (38-126) U/L Total Creatine Kinase (30-135) U/L CK-MB (Mass) (0.0-3.38) ng/mL Troponin I (0.00-0.120) ng/mL Total Protein (6.3-8.3) g/dL Albumin (3.5-5.0) g/dL Globulin (2.2-3.9) gm/dL Albumin/Globulin Ratio (1.0-2.1) Hepatitis A IgM Ab (NEGATIVE) Hep Bs Antigen (NEGATIVE) Hep B Core IgM Ab (NEGATIVE) Hepatitis C Antibody (NEGATIVE) 07/23/17 Range/Units 13:28 WBC (4.8-10.8) K/uL RBC (3.80-5.20) Mil/uL Hgb (11.0-16.0) g/dL Hct (34.0-47.0) % MCV (81.0-99.0) fL MCH (27.0-31.0) pg MCHC (33.0-37.0) g/dL RDW (11.5-14.5) % Plt Count (130-400) K/uL MPV (7.2-11.7) fL Neut % (Auto) (50.0-75.0) % Lymph % (Auto) (20.0-40.0) % Tyler % (Auto) (0.0-10.0) % Eos % (Auto) (0.0-4.0) % Baso % (Auto) (0.0-2.0) % Neut # (1.8-7.0) K/uL Lymph # (1.0-4.3) K/uL Tyler # (0.0-0.8) K/uL Eos # (0.0-0.7) K/uL Baso # (0.0-0.2) K/uL PT (9.7-12.2) SECONDS INR APTT (21-34) SECONDS Sodium (132-148) mmol/L Potassium (3.6-5.2) mmol/L Chloride (98-107) mmol/L Carbon Dioxide (22-30) mmol/L Anion Gap (10-20) BUN (7-17) mg/dL Creatinine (0.7-1.2) mg/dL Est GFR ( Amer) Est GFR (Non-Af Amer) POC Glucose (mg/dL) (65-110) mg/dL Random Glucose (65-105) mg/dL Calcium (8.6-10.4) mg/dl Phosphorus (2.5-4.5) mg/dL Magnesium (1.6-2.3) mg/dL Total Bilirubin (0.2-1.3) mg/dL AST (14-36) U/L ALT (9-52) U/L Alkaline Phosphatase (38-126) U/L Total Creatine Kinase (30-135) U/L CK-MB (Mass) (0.0-3.38) ng/mL Troponin I (0.00-0.120) ng/mL Total Protein (6.3-8.3) g/dL Albumin (3.5-5.0) g/dL Globulin (2.2-3.9) gm/dL Albumin/Globulin Ratio (1.0-2.1) Hepatitis A IgM Ab Negative (NEGATIVE) Hep Bs Antigen Negative (NEGATIVE) Hep B Core IgM Ab Negative (NEGATIVE) Hepatitis C Antibody Negative (NEGATIVE) Laboratory Results - last 24 hr 07/23/17 07/24/17 07/24/17 13:28 17:40 21:48 WBC RBC Hgb Hct MCV MCH MCHC RDW Plt Count MPV Neut % (Auto) Lymph % (Auto) Tyler % (Auto) Eos % (Auto) Baso % (Auto) Neut # Lymph # Tyler # Eos # Baso # PT INR APTT Sodium Potassium Chloride Carbon Dioxide Anion Gap BUN Creatinine Est GFR ( Amer) Est GFR (Non-Af Amer) POC Glucose (mg/dL) 101 101 Random Glucose Calcium Phosphorus Magnesium Total Bilirubin AST ALT Alkaline Phosphatase Total Creatine Kinase CK-MB (Mass) Troponin I Total Protein Albumin Globulin Albumin/Globulin Ratio Hepatitis A IgM Ab Negative Hep Bs Antigen Negative Hep B Core IgM Ab Negative Hepatitis C Antibody Negative 07/25/17 07/25/17 07/25/17 06:20 06:20 06:20 WBC 10.2 RBC 3.33 L Hgb 9.9 L Hct 29.0 L MCV 87.1 MCH 29.6 MCHC 34.0 RDW 13.7 Plt Count 138 MPV 9.4 Neut % (Auto) 78.2 H Lymph % (Auto) 14.6 L Tyler % (Auto) 7.1 Eos % (Auto) 0.0 Baso % (Auto) 0.1 Neut # 8.0 H Lymph # 1.5 Tyler # 0.7 Eos # 0.0 Baso # 0.0 PT 12.0 INR 1.1 APTT 35 H D Sodium 134 Potassium 3.5 L Chloride 101 Carbon Dioxide 26 Anion Gap 9 L BUN 15 Creatinine 0.8 Est GFR ( Amer) > 60 Est GFR (Non-Af Amer) > 60 POC Glucose (mg/dL) Random Glucose 96 Calcium 7.7 L Phosphorus 2.3 L Magnesium 1.7 Total Bilirubin 0.8 AST 153 H D ALT 273 H Alkaline Phosphatase 53 Total Creatine Kinase 418 H CK-MB (Mass) 10.9 H Troponin I 18.6000 H* Total Protein 5.8 L Albumin 2.8 L Globulin 3.0 Albumin/Globulin Ratio 0.9 L Hepatitis A IgM Ab Hep Bs Antigen Hep B Core IgM Ab Hepatitis C Antibody 07/25/17 07:14 WBC RBC Hgb Hct MCV MCH MCHC RDW Plt Count MPV Neut % (Auto) Lymph % (Auto) Tyler % (Auto) Eos % (Auto) Baso % (Auto) Neut # Lymph # Tyler # Eos # Baso # PT INR APTT Sodium Potassium Chloride Carbon Dioxide Anion Gap BUN Creatinine Est GFR ( Amer) Est GFR (Non-Af Amer) POC Glucose (mg/dL) 87 Random Glucose Calcium Phosphorus Magnesium Total Bilirubin AST ALT Alkaline Phosphatase Total Creatine Kinase CK-MB (Mass) Troponin I Total Protein Albumin Globulin Albumin/Globulin Ratio Hepatitis A IgM Ab Hep Bs Antigen Hep B Core IgM Ab Hepatitis C Antibody EKG/Cardiology Studies: Cardiology / EKG Studies 07/25/17 06:00 EKG [ELECTROCARDIOGRAM] Routine Comment: Mode Of Transportation: Reason For Exam: pre-cath 07/25/17 12:30 EKG [ELECTROCARDIOGRAM] DAILY Comment: Mode Of Transportation: PORTABLE Reason For Exam: s/p Cardiac arrest Critical Care Progress Note - Nutrition Nutrition: Nutrition Category Date Time Status NPO Diet [DIET] Diets 07/24/17 Dinner Active Assessment/Plan (1) Cardiac arrest Status: Acute Attending/Attestation - Attestation I have personally seen and examined this patient.: Yes I have fully participated in the care of the patient.: Yes I have reviewed all pertinent clinical information: Yes Notes (Text): 07/25/17 18:05 I have seen and examined the patient. Medical records, lab studies, and imaging were reviewed by me and a management plan was formulated on multidisciplinary rounds with resident Dr. Mccullough. I agree with their documented assessment and plan. Patient taken to [facility] for cardiac cath, to get CABG. Critical Care Time 35 minutes. Multi-disciplinary rounds were performed with house staff, nursing, speech therapy, respiratory therapy, pharmacy and nutrition with integrated input from the primary team/attending and other consulting services. The documented time is cumulative and includes review of patient data/exams/labs/chart review and examination of the patient on rounds and throughout the day; time is exclusive of any procedures or teaching time. 07/25/17 18:06
[2017-07-25 09:44] VITALS: BP 128/68; PULSE 96; RESP 34; TEMP 97.8; O2SAT 98
[2017-07-25] MEDS ORDERED: Influenza Vaccine 60 mcg/0.5 mL SYR (4YR UP) IM ONE (10:00)
[2017-07-25] MEDS ORDERED: Pneumococcal 23-Valent Vaccine IM ONE (10:00)
--- NOTE | 2017-07-25 10:22 | PN ---
DATE: 07/25/2017 NEUROLOGICAL PROBLEM: Cardiopulmonary arrest, hypoperfusion syndrome with respiratory arrest, all being reversed at present. PHYSICAL EXAMINATION: VITAL SIGNS: Blood pressure 125/70, mean arterial pressure of 83, respiratory rate 18, temperature 102. The patient is seen with the presence of her son and [id number]. The patient is awake, alert, oriented to person, place and time. Significant retrograde amnesia. No antegrade amnesia. No sign of depression. No sign of suicidal ideation. The patient's mentation is normal. Speech is clear. Moves all four extremities. Cranial nerve examination; no focality noted. Motor examination: Symmetric strength in both sides. Mild hyperreflexia on the right side to compare with left side. Plantars are downgoing on both sides. Now, the patient clinically improved remarkably. The patient's monitor shows significant ST-elevation with troponin level is 18.6. The patient is also recommended to have MRA of the brain from neurological point of view as well as electroencephalogram to see any electrographic seizures or any structural pathology in the brain as well. The patient's condition is being discussed with her son. The patient will be followed closely. Victor Manuel Chapin MD
[2017-07-25 12:22] LABS: HEPATITIS B SURFACE AG NEGATIVE (NEGATIVE)
[2017-07-25 12:28] LABS: HEPATITIS A IGM NEGATIVE (NEGATIVE); HEPATITIS B CORE AB Negative (NEGATIVE)
[2017-07-25 12:40] LABS: HEPATITIS C ANTIBODY Negative (NEGATIVE)
--- NOTE | 2017-07-25 13:23 | CARD ---
APPROVED REPORT EKG Measurement Heart [id number] <Conclusion> Normal sinus rhythm Low voltage QRS Anterior infarct, possibly acute ACUTE MO / STEMI Abnormal ECG
--- NOTE | 2017-07-25 13:23 | CARD ---
APPROVED REPORT EKG Measurement Heart [id number] <Conclusion> Sinus rhythm with occasional premature ventricular complexes Low voltage QRS Borderline ECG
--- NOTE | 2017-07-25 13:24 | CARD ---
APPROVED REPORT EKG Measurement Heart [id number] <Conclusion> Junctional bradycardia Low voltage QRS ST elevation, consider anterolateral injury or acute infarct ACUTE NH / STEMI Abnormal ECG
--- NOTE | 2017-07-25 13:42 | CARD ---
APPROVED REPORT EKG Measurement Heart [id number] <Conclusion> Normal sinus rhythm Low voltage QRS ST elevation, consider& anterior inferior injury or acute infarct ACUTE DC / STEMI Abnormal ECG
--- NOTE | 2017-07-25 15:47 | CP.PCM.PN ---
Subjective - Date & Time of Evaluation Date of Evaluation: 07/25/17 Time of Evaluation: 08:30 - Subjective Subjective: Patient seen and evaluated Patient denies chest pain and dyspnea Bedside ECHO reviewed Severe LV dysfunction with EF of 20% Borderline BP Patient will need either high risk PCI with Impells assist or CABG Not a candidate for [place] due to low EF of 20% Transfer to CT surgery facility for further mgt Objective - Vital Signs/Intake and Output Vital Signs (last 24 hours): Temp Pulse Resp BP Pulse Ox 97.8 F 96 H 34 H 128/68 98 07/25/17 08:00 07/25/17 09:13 07/25/17 09:13 07/25/17 09:13 07/25/17 09:13 Intake and Output: 07/25/17 07/25/17 06:59 18:59 Intake Total 1094.0 206.5 Output Total 400 200 Balance 694.0 6.5 - Medications Medications: Current Medications Acetaminophen (Tylenol 325mg Tab) 650 mg PO Q6 PRN PRN Reason: Pain, Mild (1-3) Last Admin: 07/24/17 16:43 Dose: 650 mg Aspirin (Ecotrin) 81 mg PO DAILY [facility] Last Admin: 07/25/17 15:29 Dose: Not Given Clopidogrel Bisulfate (Plavix) 75 mg PO DAILY [facility] Last Admin: 07/25/17 15:30 Dose: Not Given Dextrose (Dextrose 50% Inj) 0 ml IV STAT PRN; Protocol PRN Reason: Hypoglycemia Protocol Dextrose (Glutose 15) 0 gm PO ONCE PRN; Protocol PRN Reason: Hypoglycemia Protocol Glucagon (Glucagen Diagnostic Kit) 0 mg IM STAT PRN; Protocol PRN Reason: Hypoglycemia Protocol Heparin Sodium/Sodium Chloride (Heparin 50180 Units/250ml 1/2 Normal Saline) 25 ,000 units in 250 mls @ 5.987 mls/hr IV .Q24H PRN; Protocol; 12 UNITS/KG/HR PRN Reason: ADJUST RATE PER PROTOCOL Last Titration: 07/25/17 09:07 Dose: 11 units/kg/hr, 5.488 mls/hr Dextrose (Dextrose 5% In Water 1000 Ml) 1,000 mls @ 0 mls/hr IV .Q0M PRN; Protocol; Per Protocol PRN Reason: Hypoglycemia Protocol Sodium Chloride (Sodium Chloride 0.9%) 1,000 mls @ 60 mls/hr IV .[id number] [facility] Last Admin: 07/25/17 07:05 Dose: Not Given Insulin Human Regular (Novolin R) 0 unit SC ACHS [facility] PRN Reason: Protocol Last Admin: 07/25/17 15:30 Dose: Not Given Pantoprazole Sodium (Protonix Inj) 40 mg IVP DAILY [facility] Last Admin: 07/24/17 10:03 Dose: 40 mg Rosuvastatin Calcium (Crestor) 20 mg PO HS [facility] Last Admin: 07/24/17 21:59 Dose: 20 mg - Labs Labs: 07/25/17 06:20 07/25/17 06:20 PT 12.0 SECONDS (9.7-12.2) 07/25/17 06:20 INR 1.1 07/25/17 06:20 APTT 35 SECONDS (21-34) H D 07/25/17 06:20
--- NOTE | 2017-07-28 07:09 | CARD ---
APPROVED REPORT EKG Measurement Heart [id number] [id number] <Conclusion> Normal sinus rhythm Low voltage QRS Lateral injury pattern ACUTE AR / STEMI Abnormal ECG
== END 2017-07-25 15:53 | disposition short-term general hospital (02) | DRG 280 ==
LOC: C.ER 04:55 → C.9I 05:18
PROVIDERS: ADMIT Internal Medicine; ATTEND Internal Medicine
PROC: 5A1935Z Respiratory Ventilation, Less than 24 Consecutive Hours (ICD-10-PCS; principal; 2017-07-23)
DX: I21.09 ST elevation (STEMI) myocardial infarction involving other coronary artery of anterior wall (principal); J96.90 Respiratory failure, unspecified, unspecified whether with hypoxia or hypercapnia; I46.2 Cardiac arrest due to underlying cardiac condition; I49.01 Ventricular fibrillation; I47.2 Ventricular tachycardia; G93.1 Anoxic brain damage, not elsewhere classified; I25.10 Atherosclerotic heart disease of native coronary artery without angina pectoris; E87.2 Acidosis; E87.6 Hypokalemia; I48.91 Unspecified atrial fibrillation; E78.5 Hyperlipidemia, unspecified; E11.9 Type 2 diabetes mellitus without complications; M19.90 Unspecified osteoarthritis, unspecified site

== ENCOUNTER 2017-10-25 17:32 | Inpatient (IN) | payer MEDICARE, BC ==
[2017-10-25 17:35] VITALS: BMI 20.1
--- NOTE | 2017-10-25 18:52 | C.PDOC ---
History Of Present Illness 67yo female, was evaluated in this ER on 07/23/17 for a cardiac arrest, was resuscitated and transferred to [facility] on 07/25/17. Patient had a CABG at [facility] and was sent to rehab from there, where she was gradually improving. While she was in rehab, the patient developed an infection to upper portion of her sternal incision; patient was treated with PO antibiotics with gradual improvement over 2-3 days but worsened after. Patient had a CT Chest on 10/19/17 which showed a presternal collection, 3cm in diameter consistent with an abscess; no underlying osseous destruction noted. Patient was seen and evaluated by Dr. Xavier in his office today and was instructed to come to ER for further evaluation. Patient states since she was discharged home, she has had a mild persistent shortness of breath but denies any chest pain, fever, chills, cough. She offers no other medical complaints. Time Seen by Provider: 10/25/17 18:27 Chief Complaint (Nursing): Abnormal Skin Integrity History Per: Patient History/Exam Limitations: no limitations Onset/Duration Of Symptoms: Days Current Symptoms Are (Timing): Still Present Location Of Injury: Anterior: Chest Quality Of Symptoms: Swollen Additional History Per: Patient Past Medical History Reviewed: Historical Data, Nursing Documentation, Vital Signs Vital Signs: Last Vital Signs Temp 97.6 F 10/25/17 17:38 Pulse 86 10/25/17 17:38 Resp 20 10/25/17 17:38 BP 126/76 10/25/17 17:38 Pulse Ox 98 10/25/17 19:07 - Medical History Other PMH: ID Surgical History: CABG - [facility] Procedures RESPIRATORY VENTILATION, LESS THAN 24 CONSECUTIVE HOURS (07/23/17) Family History: States: Unknown Family Hx - Social History Hx Tobacco Use: No Hx Alcohol Use: No Hx Substance Use: No - Immunization History Hx Tetanus Toxoid Vaccination: No Hx Influenza Vaccination: No Hx Pneumococcal Vaccination: No Review Of Systems Except As Marked, All Systems Reviewed And Found Negative. Constitutional: Negative for: Fever, Chills Respiratory: Positive for: Shortness of Breath. Negative for: Cough Skin: Positive for: Other (abscess to superior portion of sternal incision site) Physical Exam - Physical Exam Appears: Non-toxic, No Acute Distress Skin: Warm, Dry, Other (4x3cm large fluctuant mass on chest wall, top portion of sternum with overlying erythema. ) Head: Atraumatic, Normacephalic Eye(s): bilateral: Normal Inspection Neck: Normal ROM, Supple Chest: Symmetrical Cardiovascular: Rhythm Regular Respiratory: Normal Breath Sounds Gastrointestinal/Abdominal: Normal Exam Extremity: Normal ROM Neurological/Psych: Oriented x3, Normal Speech, Normal Cognition ED Course And Treatment - Laboratory Results Result Diagrams: 10/25/17 18:56 10/25/17 18:56 Lab Interpretation: No Acute Changes O2 Sat by Pulse Oximetry: 98 (RA) Pulse Ox Interpretation: Normal - Physician Consult Information Time Consulting Physician Contacted: 19:50 Physician Contacted: Van Xavier Outcome Of Conversation: Patient to be admitted for drainage of abscess and IV antibiotics. Medical Decision Making Medical Decision Making: Plan: -- CMP -- CBC -- Blood culture Disposition - Disposition Disposition: HOSPITALIZED Disposition Time: 19:50 Condition: STABLE - POA Present On Arrival: None - Clinical Impression Clinical Impression: Abscess of chest wall - Scribe Statement The provider has reviewed the documentation as recorded by the Scribe (Misty Carrera) Provider Attestation: All medical record entries made by the Scribe were at my direction and personally dictated by me. I have reviewed the chart and agree that the record accurately reflects my personal performance of the history, physical exam, medical decision making, and the department course for this patient. I have also personally directed, reviewed, and agree with the discharge instructions and disposition.
[2017-10-25 19:01] LABS: BASO # 0.1 K/uL (0.0-0.2); BASO % 1.5 % (0.0-2.0); EOS # 0.3 K/uL (0.0-0.7); EOS % 4.8 % (0.0-4.0); LYMPH # 3.3 K/uL (1.0-4.3); MEAN CELL VOLUME 88.3 fL (81.0-99.0); MEAN CORPUSCULAR HEMOGLOBIN 29.3 pg (27.0-31.0); MEAN CORPUSCULAR HGB CONC 33.1 g/dL (33.0-37.0); MEAN PLATELET VOLUME 8.2 fL (7.2-11.7); MONO # 0.3 K/uL (0.0-0.8); MONO % 5.3 % (0.0-10.0); NEUT # 2.2 K/uL (1.8-7.0); NEUT % 35.4 % (50.0-75.0); RBC 5.03 Mil/uL (3.80-5.20); RED CELL DISTRIBUTION WIDTH 14.1 % (11.5-14.5); WHITE BLOOD COUNT 6.2 K/uL (4.8-10.8)
[2017-10-25 19:03] LABS: HEMOGLOBIN 14.7 g/dL (11.0-16.0)
[2017-10-25 19:12] LABS: ALB/GLOB RATIO 0.9 (1.0-2.1); ALBUMIN 3.6 g/dL (3.5-5.0); ALT/SGPT 48 U/L (9-52); AST/SGOT 45 U/L (14-36); BLOOD UREA NITROGEN 10 mg/dL (7-17); CALCIUM 9.2 mg/dl (8.6-10.4); GFR AFRICAN-AMERICAN > 60; GFR NON-AFRICAN AMERICAN > 60
--- NOTE | 2017-10-25 22:39 | CP.PCM.HP ---
History of Present Illness - History of Present Illness History of Present Illness: Chief complaint: Swelling in the sternal region History of present illness: 67-year-old female with the history of hypertension, history of coronary artery disease, recently had a cardiac arrest, complicated underwent CABG 4 at [facility] 3 weeks ago. Patient went to rehabilitation, was doing okay, currently at home. One week ago patient started noticing minimal swelling, I saw her in the office 6 days ago, patient started on by mouth antibiotic at that time, and also [address] scan of the chest which was showing evidence of suspected fluid collection, possible abscess. I called the patient and advised her to come to the hospital. Currently patient is having no fever no chills. Minimal redness and swelling in the sternal region noted. Denies any other major active symptoms. But comparing of weakness, tiredness, exertional dyspnea, cough with mucus production. Past medical history: CAD, hypertension Surgical history coronary artery bypass grafting recently. Allergies no known drug allergies Personal history nonsmoker nonalcoholic Family history: Parents have a history of heart disease, brother had a history of DC CVA Medications reviewed Oral antibiotic, but no improvement in the symptoms. Review of systems: No headache. Patient does not have any symptoms of fever, chills No pain in the sternal region, but swelling and redness noted, itching present, rash noted On examination: Vital signs stable. Chest the minimal expiratory wheezing Regular heart sound There is a significant swelling, fluctuant mass upper one third of the sternal region noted associated with the rash, minimal tenderness, and redness. 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 Data x-ray of the chest currently pending Assessment and recommendation: 67-year-old female history of recent CABG, and sternal wound. Now possibly having sternal abscess. We'll start the patient on intravenous antibiotic, cardiology, infectious disease evaluation, surgical evaluation. Nuclear scan to rule out osteomyelitis. We'll start the antibiotic. Discussed with the patient's son and will follow the patient. DVT GI prophylaxis and general medical care Present on Admission - Present on Admission Any Indicators Present on Admission: No History of DVT/PE: No History of Uncontrolled Diabetes: No Urinary Catheter: No Decubitus Ulcer Present: No Past Patient History - Past Medical History & Family History Past Medical History?: No - Past Social History Smoking Status: Never Smoked - MUSCULOSKELETAL/RHEUMATOLOGICAL Hx Falls: Yes - PSYCHIATRIC Hx Substance Use: No - SURGICAL HISTORY Hx Coronary Artery Bypass Graft: Yes - ANESTHESIA Hx Anesthesia: Yes Hx Anesthesia Reactions: No Meds Allergies/Adverse Reactions: Allergies Allergy/AdvReac Type Severity Reaction Status Date / Time No Known Allergies Allergy Unverified 07/23/17 10:39 Results - Vital Signs Recent Vital Signs: Last Vital Signs Temp 98.1 F 10/25/17 21:04 Pulse 72 10/25/17 21:04 Resp 16 10/25/17 21:04 BP 115/65 10/25/17 21:04 Pulse Ox 97 10/25/17 21:04 - Labs Result Diagrams: 10/25/17 18:56 10/25/17 18:56 Labs: Laboratory Results - last 24 hr 10/25/17 10/25/17 18:56 18:56 WBC 6.2 RBC 5.03 Hgb 14.7 D Hct 44.4 MCV 88.3 MCH 29.3 MCHC 33.1 RDW 14.1 Plt Count 216 MPV 8.2 Neut % (Auto) 35.4 L Lymph % (Auto) 53.0 H Russell % (Auto) 5.3 Eos % (Auto) 4.8 H Baso % (Auto) 1.5 Neut # (Auto) 2.2 Lymph # (Auto) 3.3 Russell # (Auto) 0.3 Eos # (Auto) 0.3 Baso # (Auto) 0.1 Sodium 139 Potassium 5.1 Chloride 102 Carbon Dioxide 26 Anion Gap 16 BUN 10 Creatinine 0.8 Est GFR ( Amer) > 60 Est GFR (Non-Af Amer) > 60 Random Glucose 94 Calcium 9.2 Total Bilirubin 0.5 AST 45 H D ALT 48 Alkaline Phosphatase 70 Total Protein 7.6 Albumin 3.6 Globulin 4.0 H Albumin/Globulin Ratio 0.9 L
[2017-10-25] MEDS: Albuterol-Ipratrop 3 mg / 0.5 (3 ml) UD INH SCH (23:50)
--- NOTE | 2017-10-25 23:56 | CP.PCM.CON ---
History of Present Illness - History of Present Illness History of Present Illness: Cardiothoracic consult for Dr. Thomas Consulted for: pre-sternal fluid collection vs abscesss 67F with PMH of CAD with recent cardiac arrest who underwent [place] [facility] [place] ago. Patient noted a swelling in the skin above her sternum 6 days ago and her primary physician started her on PO antibiotics and ordered outpatient CT on 10/19 which showed a pre-sternal fluid collection approximately 1.2x2.3cm concerning for abscess. No signs of osteomyelitis or mediastinal involvement was evident. Patient states that the swelling has gotten worse over time, is unsure if it has drained any fluid, denies any pain, fevers, angina, palpitations, or dyspnea. Denies any other symptoms. Currently takes plavix and aspirin at home. PMH: CAD, HTN PSH: CABG All: NKDA Review of Systems - Review of Systems All systems: reviewed and no additional remarkable complaints except (as per HPI ) - Gastrointestinal Gastrointestinal: absent: Nausea, Vomiting Past Patient History - Past Medical History & Family History Past Medical History?: No Past Family History: Reviewed and not pertinent - Past Social History Smoking Status: Never Smoked Alcohol: None Drugs: Denies - CARDIAC Hx Cardiac Disorders: Yes Hx Heart Attack: Yes (s/p CABG 2017) - MUSCULOSKELETAL/RHEUMATOLOGICAL Hx Falls: Yes - PSYCHIATRIC Hx Substance Use: No - SURGICAL HISTORY Hx Surgeries: Yes Hx Coronary Artery Bypass Graft: Yes - ANESTHESIA Hx Anesthesia: Yes Hx Anesthesia Reactions: No Meds Allergies/Adverse Reactions: Allergies Allergy/AdvReac Type Severity Reaction Status Date / Time No Known Allergies Allergy Unverified 07/23/17 10:39 - Medications Medications: Current Medications Albuterol/Ipratropium (Duoneb 3 Mg/0.5 Mg (3 Ml) Ud) 3 ml INH RQ8 [facility] Last Admin: 10/25/17 23:50 Dose: 3 ml Ascorbic Acid (Vitamin C 500 Mg Tab) 500 mg PO BID [facility] Aspirin (Ecotrin) 81 mg PO DAILY [facility] Carvedilol (Coreg) 3.125 mg PO BID [facility] Clopidogrel Bisulfate (Plavix) 75 mg PO DAILY [facility] Heparin Sodium (Porcine) (Heparin) 5,000 units SC Q12 [facility] Vancomycin/Sodium Chloride (Vancomycin 1 Gm/Ns 200 Ml) 1 gm in 200 mls @ 133 mls/hr IVPB Q24H [facility] Stop: 10/31/17 00:01 Piperacillin Sod/Tazobactam Sod (Zosyn 3.375 Gm Iv Premix) 3.375 gm in 50 mls @ 100 mls/hr IVPB Q8H [facility] PRN Reason: Protocol Rosuvastatin Calcium (Crestor) 20 mg PO HS [facility] Zinc Sulfate (Zinc Sulfate 220 Mg Cap) 220 mg PO DAILY [facility] Physical Exam - Constitutional Appears: Well, Non-toxic, No Acute Distress - Head Exam Head Exam: ATRAUMATIC, NORMOCEPHALIC - Eye Exam Eye Exam: Normal appearance. absent: Conjunctival injection, Scleral icterus - ENT Exam ENT Exam: Mucous Membranes Moist, Normal Oropharynx - Respiratory Exam Respiratory Exam: NORMAL BREATHING PATTERN. absent: Accessory Muscle Use, Respiratory Distress - Cardiovascular Exam Cardiovascular Exam: RRR - GI/Abdominal Exam GI & Abdominal Exam: absent: Distended - Extremities Exam Extremities exam: Positive for: pedal pulses present. Negative for: calf tenderness, pedal edema - Neurological Exam Neurological exam: Alert, Oriented x3 - Psychiatric Exam Psychiatric exam: Normal Affect, Normal Mood - Skin Additional comments: Area of skin induration and well demarcated erythema approximately 3cm in diameter at over the sternal notch, elevated, with central area of fluctuance. Non-tender to palpation. Swelling is at the superior pole of surgical incision along entire length of sternum which is well healed Results - Vital Signs Recent Vital Signs: Last Vital Signs Temp 98.1 F 10/25/17 21:04 Pulse 72 10/25/17 21:04 Resp 16 10/25/17 21:04 BP 115/65 10/25/17 21:04 Pulse Ox 97 10/25/17 21:04 - Labs Result Diagrams: 10/25/17 18:56 10/25/17 18:56 Labs: Laboratory Results - last 24 hr 10/25/17 10/25/17 18:56 18:56 WBC 6.2 RBC 5.03 Hgb 14.7 D Hct 44.4 MCV 88.3 MCH 29.3 MCHC 33.1 RDW 14.1 Plt Count 216 MPV 8.2 Neut % (Auto) 35.4 L Lymph % (Auto) 53.0 H [place] % (Auto) 5.3 Eos % (Auto) 4.8 H Baso % (Auto) 1.5 Neut # (Auto) 2.2 Lymph # (Auto) 3.3 [place] # (Auto) 0.3 Eos # (Auto) 0.3 Baso # (Auto) 0.1 Sodium 139 Potassium 5.1 Chloride 102 Carbon Dioxide 26 Anion Gap 16 BUN 10 Creatinine 0.8 Est GFR ( Amer) > 60 Est GFR (Non-Af Amer) > 60 Random Glucose 94 Calcium 9.2 Total Bilirubin 0.5 AST 45 H D ALT 48 Alkaline Phosphatase 70 Total Protein 7.6 Albumin 3.6 Globulin 4.0 H Albumin/Globulin Ratio 0.9 L - Imaging and Cardiology CT scan - chest Status: Image reviewed by me, Report reviewed by me Assessment & Plan - Assessment and Plan (Free Text) Assessment: 67F 1 month S/P CABG with pre-sternal fluid collection concerning for abscess Plan: - Patient will need incision and drainage of the fluid collection--timing and extent of debridement pending further evaluation by Dr. Thomas - Follow up blood cultures - Follow up ID recommendations - Trend CBC - Monitor for fevers - Continue antibiotics per ID recommendations - Keep patient NPO after midnight and hold plavix for possible OR Dr. Thomas notified of patient--further recommendations per him Cindy Cameron, PGY2
[2017-10-26] MEDS: Piperacill/Tazo 3.375gm in Dex 3.375 GM/50 ML BAG IVPB SCH ×4 (00:37→22:47)
[2017-10-26] MEDS: Vancomycin 1 gm/NS 200 ml 1 GM/200 ML BAG IVPB SCH (01:33)
[2017-10-26] MEDS: Albuterol-Ipratrop 3 mg / 0.5 (3 ml) UD INH SCH ×2 (07:37→19:26)
--- NOTE | 2017-10-26 10:42 | RAD ---
HISTORY: chf COMPARISON: Portable chest 07/23/2017. FINDINGS: LUNGS: No active pulmonary disease. Prior endotracheal and nasogastric tubes have been removed. PLEURA: No significant pleural effusion identified, no pneumothorax apparent. CARDIOVASCULAR: Post CABG pattern identified in the interval including mediastinal surgical clips and multiple median sternotomy wires. No pulmonary vascular derangement appreciated with cardiac size upper limits of normal. OSSEOUS STRUCTURES: No significant abnormalities. VISUALIZED UPPER ABDOMEN: Gas in the stomach and splenic flexure elevate the left hemidiaphragm mildly. OTHER FINDINGS: None. IMPRESSION: No definite acute cardiopulmonary disease identified in the interval with left hemidiaphragm elevated by 8 gas in the stomach/splenic flexure of colon.
[2017-10-26 11:27] LABS: BLOOD UREA NITROGEN 10 mg/dL (7-17); CALCIUM 8.8 mg/dl (8.6-10.4); GFR AFRICAN-AMERICAN > 60; GFR NON-AFRICAN AMERICAN > 60
--- NOTE | 2017-10-26 11:46 | CP.PCM.CON ---
History of Present Illness - History of Present Illness History of Present Illness: INFECTIOUS DISEASE CONSULT; REASON FOR CONSULT; STERNAL WOUND ABSCESS S/P CABG X3 AT [facility]. HPI 67-year-old female history off CAD status post recent cardiac arrest was underwent a CABG 3 at [facility] July 31, 2017. [facility]. Patient noted a swelling in the skin above her sternum 6 days ago and her PMD put her on by mouth antibiotics and ordered outpatient CT chest done on 10/19/17 which showed a presternal abscess/fluid collection approximately 1.2 x 2.3 x 3.0 cm No signs of osteomyelitis or mediastinal involvement was evident. Patient states she was also given some local therapy with some cream but it did not help. And she noticed the swelling was increasing so patient was sent to [facility] for further evaluation. Patient denies any fever or chills, any chest pains. Patient takes Plavix and aspirin at home. Patient was started after appropriate cultures on IV Zosyn and IV vancomycin. Patient seen today status post debridement and drainage of superficial abscess with packing I surgical team. Infectious disease consult requested by PMD for possible sternal wound infection vs abscess versus osteomyelitis. PMH: CAD, HTN PSH[place] [facility] [place] All: NKDA Family History: States: Unknown Family Hx - Social History Hx Tobacco Use: No Hx Alcohol Use: No Hx Substance Use: No - Immunization History Hx Tetanus Toxoid Vaccination: No Hx Influenza Vaccination: No Hx Pneumococcal Vaccination: No Review of Systems - Constitutional Constitutional: absent: Chills, Fever - EENT Eyes: absent: Change in Vision Ears: absent: Ear Discharge Nose/Mouth/Throat: absent: Sore Throat - Breasts Breasts: As Per HPI - Cardiovascular Cardiovascular: absent: Chest Pain (STERNAL FLUID COLLECTION SUPERIOR STERNOTOMY INCISION.), Pedal Edema - Respiratory Respiratory: absent: Cough, Hemoptysis - Gastrointestinal Gastrointestinal: absent: Abdominal Pain, Nausea, Vomiting - Genitourinary Genitourinary: absent: Dysuria, Freq UTI - Menstruation Menstruation: Post Menopausal - Integumentary Integumentary: Skin Ulcer (S/P I & D STERNAL WOUND WITH PACKING AND DRESSING IN PLACE.) - Neurological Neurological: absent: Dizziness, Headaches, Weakness - Hematologic/Lymphatic Hematologic: As Per HPI. absent: Easy Bleeding, Lymphadenopathy Past Patient History - Past Medical History & Family History Past Medical History?: No - Past Social History Smoking Status: Never Smoked - CARDIAC Hx Cardiac Disorders: Yes Hx Heart Attack: Yes (s/p CABG 2018) - PULMONARY Hx Respiratory Disorders: No - NEUROLOGICAL Hx Neurological Disorder: No - HEENT Hx HEENT Problems: No - RENAL Hx Chronic Kidney Disease: No - ENDOCRINE/METABOLIC Hx Endocrine Disorders: No - HEMATOLOGICAL/ONCOLOGICAL Hx Blood Disorders: No - INTEGUMENTARY Hx Dermatological Problems: No - MUSCULOSKELETAL/RHEUMATOLOGICAL Hx Falls: Yes - GASTROINTESTINAL Hx Gastrointestinal Disorders: No - GENITOURINARY/GYNECOLOGICAL Hx Genitourinary Disorders: No - PSYCHIATRIC Hx Psychophysiologic Disorder: No Hx Substance Use: No - SURGICAL HISTORY Hx Surgeries: Yes Hx Coronary Artery Bypass Graft: Yes - ANESTHESIA Hx Anesthesia: Yes Hx Anesthesia Reactions: No Meds Home Medications: Home Medication List Medication Instructions Recorded Confirmed Type Lactobacillus Acidophilus [Bacid 1 cap PO BID #60 cap 10/26/17 Rx Acidophilus] Sulfamethoxazole/Trimethoprim 1 tab PO BID #20 tab 10/26/17 Rx [Bactrim DS 800 mg-160 mg] levoFLOXacin [Levaquin] 750 mg PO DAILY #10 tab 10/26/17 Rx Allergies/Adverse Reactions: Allergies Allergy/AdvReac Type Severity Reaction Status Date / Time No Known Allergies Allergy Unverified 07/23/17 10:39 - Medications Medications: Current Medications Albuterol/Ipratropium (Duoneb 3 Mg/0.5 Mg (3 Ml) Ud) 3 ml INH RQ8 [facility] Last Admin: 10/26/17 07:37 Dose: 3 ml Ascorbic Acid (Vitamin C 500 Mg Tab) 500 mg PO BID [facility] Last Admin: 10/26/17 09:32 Dose: Not Given Aspirin (Ecotrin) 81 mg PO DAILY [facility] Last Admin: 10/26/17 10:44 Dose: Not Given Carvedilol (Coreg) 3.125 mg PO BID [facility] Last Admin: 10/26/17 09:31 Dose: Not Given Clopidogrel Bisulfate (Plavix) 75 mg PO DAILY [facility] Heparin Sodium (Porcine) (Heparin) 5,000 units SC Q12 [facility] Vancomycin/Sodium Chloride (Vancomycin 1 Gm/Ns 200 Ml) 1 gm in 200 mls @ 133 mls/hr IVPB Q24H [facility] Stop: 10/31/17 00:01 Last Admin: 10/26/17 01:33 Dose: 133 mls/hr Piperacillin Sod/Tazobactam Sod (Zosyn 3.375 Gm Iv Premix) 3.375 gm in 50 mls @ 100 mls/hr IVPB Q8H [facility] PRN Reason: Protocol Last Admin: 10/26/17 06:11 Dose: 100 mls/hr Rosuvastatin Calcium (Crestor) 20 mg PO HS [facility] Zinc Sulfate (Zinc Sulfate 220 Mg Cap) 220 mg PO DAILY [facility] Last Admin: 10/26/17 09:32 Dose: Not Given Physical Exam - Constitutional Appears: No Acute Distress, Cachectic - Head Exam Head Exam: NORMAL INSPECTION - Eye Exam Eye Exam: EOMI, PERRL - ENT Exam ENT Exam: Normal Oropharynx - Neck Exam Neck exam: Positive for: Normal Inspection - Respiratory Exam Respiratory Exam: Chest Wall Tenderness (DRESSING IN PLACE S/P EXCISION AND DRAINAGE.), Rales (BY BASILAR RALES.) - Cardiovascular Exam Cardiovascular Exam: REGULAR RHYTHM, +S1, +S2 - GI/Abdominal Exam GI & Abdominal Exam: Normal Bowel Sounds, Soft. absent: Organomegaly - Extremities Exam Extremities exam: Negative for: calf tenderness, pedal edema - Neurological Exam Neurological exam: CN II-XII Intact, Oriented x3, Reflexes Normal - Skin Skin Exam: Normal Color, Warm Results - Vital Signs Recent Vital Signs: Last Vital Signs Temp 98.0 F 10/26/17 07:30 Pulse 67 10/26/17 09:31 Resp 18 10/26/17 07:30 BP 99/61 L 10/26/17 09:31 Pulse Ox 97 10/26/17 07:30 - Labs Result Diagrams: 10/25/17 18:56 10/26/17 11:02 Labs: Laboratory Results - last 24 hr 10/25/17 10/25/17 10/26/17 18:56 18:56 07:53 WBC 6.2 RBC 5.03 Hgb 14.7 D Hct 44.4 MCV 88.3 MCH 29.3 MCHC 33.1 RDW 14.1 Plt Count 216 MPV 8.2 Neut % (Auto) 35.4 L Lymph % (Auto) 53.0 H [place] % (Auto) 5.3 Eos % (Auto) 4.8 H Baso % (Auto) 1.5 Neut # (Auto) 2.2 Lymph # (Auto) 3.3 [place] # (Auto) 0.3 Eos # (Auto) 0.3 Baso # (Auto) 0.1 ESR 18 Sodium 139 Potassium 5.1 Chloride 102 Carbon Dioxide 26 Anion Gap 16 BUN 10 Creatinine 0.8 Est GFR ( Amer) > 60 Est GFR (Non-Af Amer) > 60 Random Glucose 94 Calcium 9.2 Total Bilirubin 0.5 AST 45 H D ALT 48 Alkaline Phosphatase 70 Total Protein 7.6 Albumin 3.6 Globulin 4.0 H Albumin/Globulin Ratio 0.9 L 10/26/17 11:02 WBC RBC Hgb Hct MCV MCH MCHC RDW Plt Count MPV Neut % (Auto) Lymph % (Auto) [place] % (Auto) Eos % (Auto) Baso % (Auto) Neut # (Auto) Lymph # (Auto) [place] # (Auto) Eos # (Auto) Baso # (Auto) ESR Sodium 141 Potassium 4.1 Chloride 106 Carbon Dioxide 25 Anion Gap 13 BUN 10 Creatinine 0.8 Est GFR ( Amer) > 60 Est GFR (Non-Af Amer) > 60 Random Glucose 90 Calcium 8.8 Total Bilirubin AST ALT Alkaline Phosphatase Total Protein Albumin Globulin Albumin/Globulin Ratio - Imaging and Cardiology CT scan - chest Status: Report reviewed by me (ct CHEST WITHOUT CONTRAST; PRESTERNAL COLLECTION 1.2 X 2.3 X 3 CM QUESTIONABLE ABSCESS. nO OSSEOUS DESTRUCTION.) Assessment & Plan (1) Abscess of sternal region Assessment and Plan: PANCULTURES ESR CRP MRSA SCREEN. PATIENT FOR THREE-PHASE BONE SCAN RULE OUT ACUTE OSTEOMYELITIS.-P S/P I&D TODAY AT BEDSIDE.10/26/17 F/U CULTURES TO ADJUST ANTIBIOTICS. CONTINUE iv ZOSYN 3.375 EVERY 8 HOURLY .10/25/17 CONTINUE iv VANCOMYCIN 1 G Q 24 HOURLY .10/25/17 LOCAL WOUND CARE PER SURGERY. cASE DISCUSSED WITH ATTENDING DR. CHÁVEZ Status: Acute (2) CAD (coronary artery disease) Status: Acute (3) S/P CABG x 3 Assessment and Plan: s/p CABG x3 at [facility] Jul. Status: Acute (4) Hx of myocardial infarction Status: Acute (5) Cardiac arrest Status: Acute
[2017-10-26] MEDS ORDERED: Morphine 4 MG/ML VIAL IVP STA (11:47)
--- NOTE | 2017-10-26 12:10 | CP.PCM.DIS ---
Provider - Provider Date of Admission: 10/25/17 19:51 Attending physician: Van Xavier MD Time Spent in preparation of Discharge (in minutes): 55 Hospital Course - Lab Results Lab Results: Most Recent Lab Values WBC 6.2 K/uL (4.8-10.8) 10/25/17 18:56 RBC 5.03 Mil/uL (3.80-5.20) 10/25/17 18:56 Hgb 14.7 g/dL (11.0-16.0) D 10/25/17 18:56 Hct 44.4 % (34.0-47.0) 10/25/17 18:56 MCV 88.3 fL (81.0-99.0) 10/25/17 18:56 MCH 29.3 pg (27.0-31.0) 10/25/17 18:56 MCHC 33.1 g/dL (33.0-37.0) 10/25/17 18:56 RDW 14.1 % (11.5-14.5) 10/25/17 18:56 Plt Count 216 K/uL (130-400) 10/25/17 18:56 MPV 8.2 fL (7.2-11.7) 10/25/17 18:56 Neut % (Auto) 35.4 % (50.0-75.0) L 10/25/17 18:56 Lymph % (Auto) 53.0 % (20.0-40.0) H 10/25/17 18:56 [place] % (Auto) 5.3 % (0.0-10.0) 10/25/17 18:56 Eos % (Auto) 4.8 % (0.0-4.0) H 10/25/17 18:56 Baso % (Auto) 1.5 % (0.0-2.0) 10/25/17 18:56 Neut # (Auto) 2.2 K/uL (1.8-7.0) 10/25/17 18:56 Lymph # (Auto) 3.3 K/uL (1.0-4.3) 10/25/17 18:56 [place] # (Auto) 0.3 K/uL (0.0-0.8) 10/25/17 18:56 Eos # (Auto) 0.3 K/uL (0.0-0.7) 10/25/17 18:56 Baso # (Auto) 0.1 K/uL (0.0-0.2) 10/25/17 18:56 ESR 18 mm/hr (0-20) 10/26/17 07:53 Sodium 141 mmol/L (132-148) 10/26/17 11:02 Potassium 4.1 mmol/L (3.6-5.2) 10/26/17 11:02 Chloride 106 mmol/L (98-107) 10/26/17 11:02 Carbon Dioxide 25 mmol/L (22-30) 10/26/17 11:02 Anion Gap 13 (10-20) 10/26/17 11:02 BUN 10 mg/dL (7-17) 10/26/17 11:02 Creatinine 0.8 mg/dL (0.7-1.2) 10/26/17 11:02 Est GFR ( Amer) > 60 10/26/17 11:02 Est GFR (Non-Af Amer) > 60 10/26/17 11:02 Random Glucose 90 mg/dL (65-105) 10/26/17 11:02 Calcium 8.8 mg/dl (8.6-10.4) 10/26/17 11:02 Total Bilirubin 0.5 mg/dL (0.2-1.3) 10/25/17 18:56 AST 45 U/L (14-36) H D 10/25/17 18:56 ALT 48 U/L (9-52) 10/25/17 18:56 Alkaline Phosphatase 70 U/L (38-126) 10/25/17 18:56 Total Protein 7.6 g/dL (6.3-8.3) 10/25/17 18:56 Albumin 3.6 g/dL (3.5-5.0) 10/25/17 18:56 Globulin 4.0 gm/dL (2.2-3.9) H 10/25/17 18:56 Albumin/Globulin Ratio 0.9 (1.0-2.1) L 10/25/17 18:56 - Hospital Course Hospital Course: Upon Admission: Chief complaint: Swelling in the sternal region History of present illness: 67-year-old female with the history of hypertension, history of coronary artery disease, recently had a cardiac arrest, complicated underwent CABG 4 at [facility] 3 weeks ago. Patient went to rehabilitation, was doing okay, currently at home. One week ago patient started noticing minimal swelling, I saw her in the office 6 days ago, patient started on by mouth antibiotic at that time, and also [address] scan of the chest which was showing evidence of suspected fluid collection, possible abscess. I called the patient and advised her to come to the hospital. Currently patient is having no fever no chills. Minimal redness and swelling in the sternal region noted. Denies any other major active symptoms. But comparing of weakness, tiredness, exertional dyspnea, cough with mucus production. Past medical history: CAD, hypertension Surgical history coronary artery bypass grafting recently. Allergies no known drug allergies Personal history nonsmoker nonalcoholic Family history: Parents have a history of heart disease, brother had a history of [place] CVA Throughout Hospital Course: Patient was evaluated by a Cardiothoracic surgeon who performed a bedside I&D - specimens were sent for wound culture and gram stain, fungal culture, and for AFB. Patient was seen by Infectious Disease - who recommended the following cultures be sent and to discharge patient with Augmentin x 14 days. Patient will follow up with Dr. Thomas tomorrow in [place] [facility] and will follow up with Dr. Xavier in 1 week. Discharge Exam - Head Exam Head Exam: ATRAUMATIC, NORMAL INSPECTION, NORMOCEPHALIC - Eye Exam Eye Exam: EOMI, Normal appearance, PERRL Pupil Exam: NORMAL ACCOMODATION - ENT Exam ENT Exam: Normal Exam - Respiratory Exam Respiratory Exam: NORMAL BREATHING PATTERN - Cardiovascular Exam Cardiovascular Exam: REGULAR RHYTHM Additional comments: Sternotomy surgical scars Packing in place, dressing is c/d/i - GI/Abdominal Exam GI & Abdominal Exam: Normal Bowel Sounds, Soft. absent: Distended, Organomegaly , Tenderness - Rectal Exam Rectal Exam: Deferred - Extremities Exam Extremities exam: normal inspection, pedal pulses present - Neurological Exam Neurological exam: Alert, Oriented x3 - Psychiatric Exam Psychiatric exam: Normal Affect, Normal Mood - Skin Skin Exam: Dry, Intact, Normal Color, Warm Discharge Plan - Discharge Medications Prescriptions: Amoxicillin/Clavulanate [Augmentin 875 MG-125 MG] 1 tab PO BID #28 tab Lactobacillus Acidophilus [Bacid Acidophilus] 1 cap PO BID #60 cap - Follow Up Plan Condition: STABLE Disposition: HOME/ ROUTINE Instructions: Abscess (GEN) Additional Instructions: Please see Dr. Thomas tomorrow in [place] [facility] Please call to confirm that you will be seeing him tomorrow 10/27/17. You are status post incision and drainage of a [place] [address] Contact Information Please continue taking your medications as instructed Please take the following antibiotics: Please follow up with Dr. Xavier 1-2 weeks. Referrals: Tomas Thomas MD [Medical Doctor] -
--- NOTE | 2017-10-26 12:48 | PCM.SURG1 ---
Surgeon's Initial Post Op Note - Surgeon's Notes Surgeon: Dr. Thomas Site Director: Dr. Sierra PGY-3, Hernán Klein MS3 Type of Anesthesia: Local Pre-Operative Diagnosis: chest wall abscess Operative Findings: Informed consent was obtained and pt was prepped and draped bedside in sterile fashion. 5cc of 1% Lidocaine was used to anesthetize the skin on the chest wall. An #11 blade was then used to make a longitudnal incision at the most fluctuant part of the abscess.Purulent drainge was expressed, about 10-15cc total. Cultures were obtained. The abscess cavity was probed to check for loculations & tracking. Only some tracking was evident at the inferior edge of the incision, and cavity was found to be superficial about 1cm deep. Sterile saline was used to irrigate the cavity and 4x4 gauze sponge was used to pack it. Pt tolerated the procedure well. Post-Operative Diagnosis: Same Operation Performed: Incision & Drainage of Anterior chest wall abscess Specimen/Specimens Removed: none Estimated Blood Loss: EBL {In ML}: 0 Blood Products Given: N/A Drains Used: No Drains Post-Op Condition: Good Date of Surgery/Procedure: 10/26/17 Time of Surgery/Procedure: 12:49
--- NOTE | 2017-10-26 12:50 | CP.PCM.PCO ---
Physician Communication Note - Physician Communication Note Physician Communication Note: Pt clear for DC from Sx, f/u w/ in office for packing removal
--- NOTE | 2017-10-26 14:18 | NM ---
PROCEDURE: Three-phase bone scan HISTORY: sternal osteomyelitis COMPARISON: 10/19/2017 CT thorax. Summary of findings on the comparison examination: Status post sternotomy with presternal collection 3 cm greatest dimension consistent with abscess. TECHNIQUE: Following administration of 20.3 miCu of Tc MDP multiplanar whole body images were obtained. FINDINGS: Flow component: Unremarkable. Blood pool component: No significant abnormalities. Delayed images at 3:00: Increased uptake in multiple ribs bilaterally. The overall appearance is consistent with prior trauma rather than metastatic disease. Review of the recent CT scan supports this non neoplastic etiology. Increased uptake in the sternum consistent with prior sternotomy. Other findings: None. IMPRESSION: No evidence of sternal osteomyelitis. Multiple foci of increased uptake bilateral ribs consistent with prior trauma and supported by findings on recent CT scan.
--- NOTE | 2017-10-26 20:55 | CP.PCM.CON ---
History of Present Illness - History of Present Illness History of Present Illness: 67yo female, was evaluated in this ER on 07/23/17 for a cardiac arrest, was resuscitated and transferred to [facility] on 07/25/17. Patient had a CABG at [facility] and was sent to rehab from there, where she was gradually improving. While she was in rehab, the patient developed an infection to upper portion of her sternal incision; patient was treated with PO antibiotics with gradual improvement over 2-3 days but worsened after. Patient had a CT Chest on 10/19/17 which showed a presternal collection, 3cm in diameter consistent with an abscess; no underlying osseous destruction noted. Patient was seen and evaluated by Dr. Xavier in his office today and was instructed to come to ER for further evaluation. Patient states since she was discharged home, she has had a mild persistent shortness of breath but denies any chest pain, fever, chills, cough. She offers no other medical complaints. ? Sternal abcess Review Of Systems Except As Marked, All Systems Reviewed And Found Negative. Constitutional: Negative for: Fever, Chills Respiratory: Positive for: Shortness of Breath. Negative for: Cough Skin: Positive for: Other (abscess to superior portion of sternal incision site) Physical Exam - Physical Exam Appears: Non-toxic, No Acute Distress Skin: Warm, Dry, Other (4x3cm large fluctuant mass on chest wall, top portion of sternum with overlying erythema. ) Head: Atraumatic, Normacephalic Eye(s): bilateral: Normal Inspection Neck: Normal ROM, Supple Chest: Symmetrical Cardiovascular: Rhythm Regular Respiratory: Normal Breath Sounds Gastrointestinal/Abdominal: Normal Exam Extremity: Normal ROM Neurological/Psych: Oriented x3, Normal Speech, Normal Cognition Past Patient History - Past Medical History & Family History Past Medical History?: No - Past Social History Smoking Status: Never Smoked - CARDIAC Hx Cardiac Disorders: Yes ([place], CABGx3) - PULMONARY Hx Respiratory Disorders: No - NEUROLOGICAL Hx Neurological Disorder: No - HEENT Hx HEENT Problems: No - RENAL Hx Chronic Kidney Disease: No - ENDOCRINE/METABOLIC Hx Endocrine Disorders: No - HEMATOLOGICAL/ONCOLOGICAL Hx Blood Disorders: No - INTEGUMENTARY Hx Dermatological Problems: No - MUSCULOSKELETAL/RHEUMATOLOGICAL Hx Falls: Yes - GASTROINTESTINAL Hx Gastrointestinal Disorders: No - GENITOURINARY/GYNECOLOGICAL Hx Genitourinary Disorders: No - PSYCHIATRIC Hx Psychophysiologic Disorder: No Hx Substance Use: No - SURGICAL HISTORY Hx Surgeries: Yes Hx Coronary Artery Bypass Graft: Yes - ANESTHESIA Hx Anesthesia: Yes Hx Anesthesia Reactions: No Meds Home Medications: Home Medication List Medication Instructions Recorded Confirmed Type Lactobacillus Acidophilus [Bacid 1 cap PO BID #60 cap 10/26/17 Rx Acidophilus] Sulfamethoxazole/Trimethoprim 1 tab PO BID #20 tab 10/26/17 Rx [Bactrim DS 800 mg-160 mg] levoFLOXacin [Levaquin] 750 mg PO DAILY #10 tab 10/26/17 Rx Allergies/Adverse Reactions: Allergies Allergy/AdvReac Type Severity Reaction Status Date / Time No Known Allergies Allergy Unverified 07/23/17 10:39 - Medications Medications: Current Medications Albuterol/Ipratropium (Duoneb 3 Mg/0.5 Mg (3 Ml) Ud) 3 ml INH RQ8 [facility] Last Admin: 10/26/17 19:26 Dose: 3 ml Ascorbic Acid (Vitamin C 500 Mg Tab) 500 mg PO BID [facility] Last Admin: 10/26/17 18:08 Dose: 500 mg Aspirin (Ecotrin) 81 mg PO DAILY [facility] Last Admin: 10/26/17 10:44 Dose: Not Given Carvedilol (Coreg) 3.125 mg PO BID [facility] Last Admin: 10/26/17 18:08 Dose: Not Given Clopidogrel Bisulfate (Plavix) 75 mg PO DAILY [facility] Heparin Sodium (Porcine) (Heparin) 5,000 units SC Q12 [facility] Vancomycin/Sodium Chloride (Vancomycin 1 Gm/Ns 200 Ml) 1 gm in 200 mls @ 133 mls/hr IVPB Q24H [facility] Stop: 10/31/17 00:01 Last Admin: 10/26/17 01:33 Dose: 133 mls/hr Piperacillin Sod/Tazobactam Sod (Zosyn 3.375 Gm Iv Premix) 3.375 gm in 50 mls @ 100 mls/hr IVPB Q8H [facility] PRN Reason: Protocol Last Admin: 10/26/17 14:59 Dose: 100 mls/hr Rosuvastatin Calcium (Crestor) 20 mg PO HS [facility] Zinc Sulfate (Zinc Sulfate 220 Mg Cap) 220 mg PO DAILY [facility] Last Admin: 10/26/17 09:32 Dose: Not Given Results - Vital Signs Recent Vital Signs: Last Vital Signs Temp 97.6 F 10/26/17 16:00 Pulse 68 10/26/17 16:00 Resp 20 10/26/17 16:00 BP 100/60 10/26/17 16:00 Pulse Ox 96 10/26/17 16:00 - Labs Result Diagrams: 10/25/17 18:56 10/26/17 11:02 Labs: Laboratory Results - last 24 hr 10/26/17 10/26/17 10/26/17 07:53 11:02 13:01 ESR 18 Sodium 141 Potassium 4.1 Chloride 106 Carbon Dioxide 25 Anion Gap 13 BUN 10 Creatinine 0.8 Est GFR ( Amer) > 60 Est GFR (Non-Af Amer) > 60 Random Glucose 90 Calcium 8.8 C-Reactive Protein < 5.00 Assessment & Plan - Assessment and Plan (Free Text) Assessment: CAD s/p [place] s/p CABG Sternal abcess I and D done by surgery Stable
[2017-10-27] MEDS: Albuterol-Ipratrop 3 mg / 0.5 (3 ml) UD INH SCH ×4 (00:13→23:31)
[2017-10-27] MEDS: Vancomycin 1 gm/NS 200 ml 1 GM/200 ML BAG IVPB SCH (00:16)
[2017-10-27] MEDS: Piperacill/Tazo 3.375gm in Dex 3.375 GM/50 ML BAG IVPB SCH ×3 (06:33→22:02)
[2017-10-27 07:52] LABS: BASO # 0.1 K/uL (0.0-0.2); BASO % 0.9 % (0.0-2.0); EOS # 0.4 K/uL (0.0-0.7); EOS % 6.5 % (0.0-4.0); HEMOGLOBIN 13.4 g/dL (11.0-16.0); LYMPH # 2.6 K/uL (1.0-4.3); LYMPH % 45.4 % (20.0-40.0); MEAN CELL VOLUME 88.6 fL (81.0-99.0); MEAN CORPUSCULAR HEMOGLOBIN 29.6 pg (27.0-31.0); MEAN CORPUSCULAR HGB CONC 33.4 g/dL (33.0-37.0); MEAN PLATELET VOLUME 8.3 fL (7.2-11.7); MONO # 0.4 K/uL (0.0-0.8); NEUT # 2.3 K/uL (1.8-7.0); NEUT % 40.2 % (50.0-75.0); RBC 4.52 Mil/uL (3.80-5.20); RED CELL DISTRIBUTION WIDTH 13.9 % (11.5-14.5); WHITE BLOOD COUNT 5.7 K/uL (4.8-10.8)
[2017-10-27 10:49] LABS: ALB/GLOB RATIO 0.8 (1.0-2.1); ALBUMIN 2.8 g/dL (3.5-5.0); ALT/SGPT 40 U/L (9-52); AST/SGOT 47 U/L (14-36); BILIRUBIN,DIRECT 0.4 mg/dL (0.0-0.4); BLOOD UREA NITROGEN 9 mg/dL (7-17); CALCIUM 8.5 mg/dl (8.6-10.4); GFR AFRICAN-AMERICAN > 60; GFR NON-AFRICAN AMERICAN > 60
--- NOTE | 2017-10-27 11:51 | CP.PCM.PN ---
Subjective - Date & Time of Evaluation Date of Evaluation: 10/27/17 Time of Evaluation: 09:00 - Subjective Subjective: Patient was seen and examined at bedside. Patient reports her pain is minimal. Her dressings where changed this morning by surgery. No acute complaints. Objective - Vital Signs/Intake and Output Vital Signs (last 24 hours): Temp Pulse Resp BP Pulse Ox 97.6 F 69 20 103/59 L 96 10/27/17 07:40 10/27/17 07:40 10/27/17 07:40 10/27/17 07:40 10/27/17 07:40 - Medications Medications: Current Medications Albuterol/Ipratropium (Duoneb 3 Mg/0.5 Mg (3 Ml) Ud) 3 ml INH RQ8 [facility] Last Admin: 10/27/17 07:45 Dose: 3 ml Ascorbic Acid (Vitamin C 500 Mg Tab) 500 mg PO BID [facility] Last Admin: 10/27/17 09:33 Dose: 500 mg Aspirin (Ecotrin) 81 mg PO DAILY [facility] Last Admin: 10/27/17 09:33 Dose: 81 mg Carvedilol (Coreg) 3.125 mg PO BID [facility] Last Admin: 10/27/17 09:34 Dose: 3.125 mg Clopidogrel Bisulfate (Plavix) 75 mg PO DAILY [facility] Last Admin: 10/27/17 09:33 Dose: 75 mg Heparin Sodium (Porcine) (Heparin) 5,000 units SC Q12 [facility] Last Admin: 10/27/17 09:33 Dose: 5,000 units Vancomycin/Sodium Chloride (Vancomycin 1 Gm/Ns 200 Ml) 1 gm in 200 mls @ 133 mls/hr IVPB Q24H [facility] Stop: 10/31/17 00:01 Last Admin: 10/27/17 00:16 Dose: 133 mls/hr Piperacillin Sod/Tazobactam Sod (Zosyn 3.375 Gm Iv Premix) 3.375 gm in 50 mls @ 100 mls/hr IVPB Q8H [facility] PRN Reason: Protocol Last Admin: 10/27/17 06:33 Dose: 100 mls/hr Rosuvastatin Calcium (Crestor) 20 mg PO HS [facility] Last Admin: 10/26/17 21:39 Dose: 20 mg Zinc Sulfate (Zinc Sulfate 220 Mg Cap) 220 mg PO DAILY [facility] Last Admin: 10/27/17 09:34 Dose: 220 mg - Labs Labs: 10/27/17 07:46 10/27/17 07:46 - Constitutional Appears: No Acute Distress - Head Exam Head Exam: NORMAL INSPECTION, NORMOCEPHALIC - Eye Exam Eye Exam: EOMI, Normal appearance, PERRL Pupil Exam: NORMAL ACCOMODATION - ENT Exam ENT Exam: Mucous Membranes Moist - Neck Exam Neck Exam: Normal Inspection - Respiratory Exam Respiratory Exam: Clear to Ausculation Bilateral, NORMAL BREATHING PATTERN - Cardiovascular Exam Cardiovascular Exam: REGULAR RHYTHM Additional comments: Sternotomy surgical scars Packing in place, dressing is c/d/i - GI/Abdominal Exam GI & Abdominal Exam: Soft, Normal Bowel Sounds. absent: Distended, Tenderness - Rectal Exam Rectal Exam: Deferred - Extremities Exam Extremities Exam: Normal Inspection. absent: Pedal Edema, Tenderness - Back Exam Back Exam: NORMAL INSPECTION - Neurological Exam Neurological Exam: Alert, Awake, Oriented x3 - Psychiatric Exam Psychiatric exam: Normal Affect, Normal Mood - Skin Skin Exam: Dry, Intact, Normal Color, Warm Assessment and Plan - Assessment and Plan (Free Text) Assessment: Ms. Helms is 67 Female with PMHx of CAD s/p CABG x4 (09/2017), HTN who presented with a presternal abscess. Bone scan was done, no osteomyelitis. Patient was evaluated by a Cardiothoracic surgeon who performed a bedside I&D - specimens were sent for wound culture and gram stain and fungal culture. Patient was seen by Infectious Disease - pending results of cultures -will discharge with PO abx x 10 days. Patient will follow up with Dr. Thomas on Monday in his office in [facility] and will follow up with Dr. Xavier in 1 week. Plan: Presternal Abscess s/p I&D CABG 09/2017 Pending would cultures for antibiotic regimen Will continue with IV Vanco and zosyn until discharge Hx HTN Resume home medications Hx CAD Resume home medications Disposition: Possible discharge tomorrow - we are waiting for 48hr wound culture DW Dr. Xavier, Lorraine Pastor DO, PGY-1
--- NOTE | 2017-10-27 13:30 | CP.PCM.PN ---
<Manny Wayne - Last Filed: 10/27/17 13:27> Subjective - Date & Time of Evaluation Date of Evaluation: 10/27/17 Time of Evaluation: 10:00 - Subjective Subjective: PGY2 Cardiology Progress Note for Dr. Oscar Patient seen and examined at bedside. No acute distress. Patient denies chest pain, SOB, or LE edema. Sternal dressing is CDI s/p I&D. 12-point review of systems is otherwise negative without any additional acute complaints. Objective - Vital Signs/Intake and Output Vital Signs (last 24 hours): Temp Pulse Resp BP Pulse Ox 97.6 F 69 20 102/63 96 10/27/17 07:40 10/27/17 09:30 10/27/17 07:40 10/27/17 09:30 10/27/17 07:40 Intake and Output: 10/27/17 10/27/17 06:59 18:59 Intake Total 50 Balance 50 - Medications Medications: Current Medications Albuterol/Ipratropium (Duoneb 3 Mg/0.5 Mg (3 Ml) Ud) 3 ml INH RQ8 [facility] Last Admin: 10/27/17 07:45 Dose: 3 ml Ascorbic Acid (Vitamin C 500 Mg Tab) 500 mg PO BID [facility] Last Admin: 10/27/17 09:33 Dose: 500 mg Aspirin (Ecotrin) 81 mg PO DAILY [facility] Last Admin: 10/27/17 09:33 Dose: 81 mg Carvedilol (Coreg) 3.125 mg PO BID [facility] Last Admin: 10/27/17 09:34 Dose: 3.125 mg Clopidogrel Bisulfate (Plavix) 75 mg PO DAILY [facility] Last Admin: 10/27/17 09:33 Dose: 75 mg Heparin Sodium (Porcine) (Heparin) 5,000 units SC Q12 [facility] Last Admin: 10/27/17 09:33 Dose: 5,000 units Vancomycin/Sodium Chloride (Vancomycin 1 Gm/Ns 200 Ml) 1 gm in 200 mls @ 133 mls/hr IVPB Q24H [facility] Stop: 10/31/17 00:01 Last Admin: 10/27/17 00:16 Dose: 133 mls/hr Piperacillin Sod/Tazobactam Sod (Zosyn 3.375 Gm Iv Premix) 3.375 gm in 50 mls @ 100 mls/hr IVPB Q8H [facility] PRN Reason: Protocol Last Admin: 10/27/17 06:33 Dose: 100 mls/hr Rosuvastatin Calcium (Crestor) 20 mg PO HS [facility] Last Admin: 10/26/17 21:39 Dose: 20 mg Zinc Sulfate (Zinc Sulfate 220 Mg Cap) 220 mg PO DAILY [facility] Last Admin: 10/27/17 09:34 Dose: 220 mg - Labs Labs: 10/27/17 07:46 10/27/17 07:46 - Additional Findings Additional findings: - Constitutional Appears: No Acute Distress - Head Exam Head Exam: NORMAL INSPECTION, NORMOCEPHALIC - Neck Exam Neck Exam: Normal Inspection - Respiratory Exam Respiratory Exam: Clear to Ausculation Bilateral, NORMAL BREATHING PATTERN - Cardiovascular Exam Cardiovascular Exam: REGULAR RHYTHM, +S1, +S2; absent: JVD Additional comments: -Sternotomy surgical scars -Dressing CDI - GI/Abdominal Exam GI & Abdominal Exam: Soft, Normal Bowel Sounds. absent: Distended, Tenderness - Extremities Exam Extremities Exam: Normal Inspection. absent: Pedal Edema, Tenderness - Back Exam Back Exam: NORMAL INSPECTION - Neurological Exam Neurological Exam: Alert, Awake, Oriented x3 - Psychiatric Exam Psychiatric exam: Normal Affect, Normal Mood - Skin Skin Exam: Dry, Intact, Normal Color, Warm Assessment and Plan - Assessment and Plan (Free Text) Assessment: Presternal Abscess s/p I&D Sternal abcess s/p I&D by surgery team CT chest 10/19 - 3cm presternal abscess. see full report. CAD s/p CABG CAD s/p NV s/p CABG Continue Crestor 20mg PO qD Continue Plavix 75mg PO qD Hx HTN BP 103/59, stable. Continue Coreg 3.125mg PO BID Case Discussed with Dr. Dayne Wayne, PGY2 <Bacilio Oscar - Last Filed: 10/28/17 10:12> Objective - Vital Signs/Intake and Output Vital Signs (last 24 hours): Temp Pulse Resp BP Pulse Ox 97.9 F 80 20 110/70 96 10/28/17 07:00 10/28/17 09:12 10/28/17 07:00 10/28/17 09:21 10/28/17 07:00 Intake and Output: 10/28/17 10/28/17 06:59 18:59 Intake Total 370 Balance 370 - Medications Medications: Current Medications Albuterol/Ipratropium (Duoneb 3 Mg/0.5 Mg (3 Ml) Ud) 3 ml INH RQ8 [facility] Last Admin: 10/28/17 07:48 Dose: 3 ml Ascorbic Acid (Vitamin C 500 Mg Tab) 500 mg PO BID [facility] Last Admin: 10/28/17 09:13 Dose: 500 mg Aspirin (Ecotrin) 81 mg PO DAILY [facility] Last Admin: 10/28/17 09:13 Dose: 81 mg Carvedilol (Coreg) 3.125 mg PO BID [facility] Last Admin: 10/28/17 09:13 Dose: 3.125 mg Clopidogrel Bisulfate (Plavix) 75 mg PO DAILY [facility] Last Admin: 10/28/17 09:13 Dose: 75 mg Heparin Sodium (Porcine) (Heparin) 5,000 units SC Q12 [facility] Last Admin: 10/28/17 09:13 Dose: 5,000 units Vancomycin/Sodium Chloride (Vancomycin 1 Gm/Ns 200 Ml) 1 gm in 200 mls @ 133 mls/hr IVPB Q24H [facility] Stop: 10/31/17 00:01 Last Admin: 10/28/17 00:52 Dose: 133 mls/hr Piperacillin Sod/Tazobactam Sod (Zosyn 3.375 Gm Iv Premix) 3.375 gm in 50 mls @ 100 mls/hr IVPB Q8H [facility] PRN Reason: Protocol Last Admin: 10/28/17 06:05 Dose: 100 mls/hr Rosuvastatin Calcium (Crestor) 20 mg PO HS [facility] Last Admin: 10/27/17 22:02 Dose: 20 mg Zinc Sulfate (Zinc Sulfate 220 Mg Cap) 220 mg PO DAILY [facility] Last Admin: 10/28/17 09:13 Dose: 220 mg - Labs Labs: 10/27/17 07:46 10/27/17 07:46 Assessment and Plan - Assessment and Plan (Free Text) Plan: Patient seen and evaluated personally by me Plan of care d/w the medical office assistant instructor and as documented
--- NOTE | 2017-10-27 21:00 | CP.PCM.PN ---
Subjective - Date & Time of Evaluation Date of Evaluation: 10/27/17 Time of Evaluation: 21:00 - Subjective Subjective: AFEBRILE. NO NEW COMPLAINTS S/P STERNAL WOUND DRESSING CHANGE THIS AM. LABS/RADIOLOGY; BONE SCAN -VE FOR STERNAL OSTEOMYELITIS. Objective - Vital Signs/Intake and Output Vital Signs (last 24 hours): Temp Pulse Resp BP Pulse Ox 98.1 F 82 20 92/56 L 95 10/27/17 15:23 10/27/17 15:23 10/27/17 15:23 10/27/17 15:23 10/27/17 15:23 Intake and Output: 10/27/17 10/28/17 18:59 06:59 Intake Total 400 Balance 400 - Medications Medications: Current Medications Albuterol/Ipratropium (Duoneb 3 Mg/0.5 Mg (3 Ml) Ud) 3 ml INH RQ8 [facility] Last Admin: 10/27/17 15:44 Dose: 3 ml Ascorbic Acid (Vitamin C 500 Mg Tab) 500 mg PO BID [facility] Last Admin: 10/27/17 17:31 Dose: 500 mg Aspirin (Ecotrin) 81 mg PO DAILY [facility] Last Admin: 10/27/17 09:33 Dose: 81 mg Carvedilol (Coreg) 3.125 mg PO BID [facility] Last Admin: 10/27/17 17:29 Dose: 3.125 mg Clopidogrel Bisulfate (Plavix) 75 mg PO DAILY [facility] Last Admin: 10/27/17 09:33 Dose: 75 mg Heparin Sodium (Porcine) (Heparin) 5,000 units SC Q12 [facility] Last Admin: 10/27/17 09:33 Dose: 5,000 units Vancomycin/Sodium Chloride (Vancomycin 1 Gm/Ns 200 Ml) 1 gm in 200 mls @ 133 mls/hr IVPB Q24H [facility] Stop: 10/31/17 00:01 Last Admin: 10/27/17 00:16 Dose: 133 mls/hr Piperacillin Sod/Tazobactam Sod (Zosyn 3.375 Gm Iv Premix) 3.375 gm in 50 mls @ 100 mls/hr IVPB Q8H [facility] PRN Reason: Protocol Last Admin: 10/27/17 14:17 Dose: 100 mls/hr Rosuvastatin Calcium (Crestor) 20 mg PO HS [facility] Last Admin: 10/26/17 21:39 Dose: 20 mg Zinc Sulfate (Zinc Sulfate 220 Mg Cap) 220 mg PO DAILY [facility] Last Admin: 10/27/17 09:34 Dose: 220 mg - Labs Labs: 10/27/17 07:46 10/27/17 07:46 - Constitutional Appears: No Acute Distress - Head Exam Head Exam: NORMAL INSPECTION - Eye Exam Eye Exam: EOMI, PERRL - ENT Exam ENT Exam: Normal Oropharynx - Neck Exam Neck Exam: Normal Inspection - Respiratory Exam Respiratory Exam: Chest Wall Tenderness (MINIMAL TENDERNESS ON PALPATION. CENTRAL SCAR OF STERNOTOMY WITH DRESSING IN PLACE), Decreased Breath Sounds ( BASES), NORMAL BREATHING PATTERN - Cardiovascular Exam Cardiovascular Exam: REGULAR RHYTHM, +S1, +S2 - GI/Abdominal Exam GI & Abdominal Exam: Soft, Normal Bowel Sounds. absent: Tenderness - Extremities Exam Extremities Exam: Normal Capillary Refill. absent: Calf Tenderness, Pedal Edema - Neurological Exam Neurological Exam: Awake, CN II-XII Intact, Oriented x3, Reflexes Normal - Psychiatric Exam Psychiatric exam: Normal Mood - Skin Skin Exam: Normal Color, Warm Assessment and Plan (1) Abscess of sternal region Assessment & Plan: F/U CULTURES TO ADJUST ANTIBIOTICS. CONTINUE iv ZOSYN 3.375 EVERY 8 HOURLY .10/25/17 FOR NOW CONTINUE iv VANCOMYCIN 1 G Q 24 HOURLY .10/25/17 FOR NOW. LOCAL WOUND CARE PER SURGERY. IF Wound cultures negative growth X 48HRS then follow as outpatient on by mouth LEVAQUIN 500 MG ONCE A DAY DAILY X 10 DAYS. Cleocin 300mg po tid X 10 DAYS. FOLLOW-UP RENAL FUNCTIONS/lftS NEXT WEEK. PATIENT TO FOLLOW-UP THORACIC SURGERY ON MONDAY,October, REPORTED. PT WILL NEED RE-EVALUATION OF WOUND AND CULTURES AND FURTHER ABX RX TO HEALING. case discussed with the resident /staff. Status: Acute (2) CAD (coronary artery disease) Status: Acute (3) S/P CABG x 3 Status: Acute (4) Hx of myocardial infarction Status: Acute (5) Cardiac arrest Status: Acute
--- NOTE | 2017-10-27 22:49 | CARD ---
APPROVED REPORT EKG Measurement Heart [id number] <Conclusion> Normal sinus rhythm Low voltage QRS Cannot rule out Anterior infarct, age undetermined T wave abnormality, consider lateral ischemia Prolonged QT Abnormal ECG
[2017-10-28] MEDS: Vancomycin 1 gm/NS 200 ml 1 GM/200 ML BAG IVPB SCH ×2 (00:52→23:59)
[2017-10-28] MEDS: Piperacill/Tazo 3.375gm in Dex 3.375 GM/50 ML BAG IVPB SCH ×3 (06:05→22:02)
[2017-10-28] MEDS: Albuterol-Ipratrop 3 mg / 0.5 (3 ml) UD INH SCH ×3 (07:48→23:36)
--- NOTE | 2017-10-28 17:19 | CP.PCM.PN ---
Subjective - Date & Time of Evaluation Date of Evaluation: 10/28/17 Time of Evaluation: 17:17 - Subjective Subjective: pt is doing well cough noted wheezing mild no chest pain vitals Temp Pulse Resp BP Pulse Ox 98.1 F 69 18 96/55 L 96 10/28/17 15:14 10/28/17 15:14 10/28/17 15:14 10/28/17 15:14 10/28/17 15:14 chest wheezing mild regular hs abd soft edema negative wound culture negative on antibiotic I spoke to pt son and explained will possible discharge tonight or in the AM OP antibiotic Objective - Vital Signs/Intake and Output Vital Signs (last 24 hours): Temp Pulse Resp BP Pulse Ox 98.1 F 69 18 96/55 L 96 10/28/17 15:14 10/28/17 15:14 10/28/17 15:14 10/28/17 15:14 10/28/17 15:14 Intake and Output: 10/28/17 10/28/17 06:59 18:59 Intake Total 370 180 Balance 370 180 - Medications Medications: Current Medications Albuterol/Ipratropium (Duoneb 3 Mg/0.5 Mg (3 Ml) Ud) 3 ml INH RQ8 [facility] Last Admin: 10/28/17 15:52 Dose: 3 ml Ascorbic Acid (Vitamin C 500 Mg Tab) 500 mg PO BID [facility] Last Admin: 10/28/17 09:13 Dose: 500 mg Aspirin (Ecotrin) 81 mg PO DAILY [facility] Last Admin: 10/28/17 09:13 Dose: 81 mg Carvedilol (Coreg) 3.125 mg PO BID [facility] Last Admin: 10/28/17 09:13 Dose: 3.125 mg Clopidogrel Bisulfate (Plavix) 75 mg PO DAILY [facility] Last Admin: 10/28/17 09:13 Dose: 75 mg Heparin Sodium (Porcine) (Heparin) 5,000 units SC Q12 [facility] Last Admin: 10/28/17 09:13 Dose: 5,000 units Vancomycin/Sodium Chloride (Vancomycin 1 Gm/Ns 200 Ml) 1 gm in 200 mls @ 133 mls/hr IVPB Q24H [facility] Stop: 10/31/17 00:01 Last Admin: 10/28/17 00:52 Dose: 133 mls/hr Piperacillin Sod/Tazobactam Sod (Zosyn 3.375 Gm Iv Premix) 3.375 gm in 50 mls @ 100 mls/hr IVPB Q8H [facility] PRN Reason: Protocol Last Admin: 10/28/17 14:15 Dose: 100 mls/hr Rosuvastatin Calcium (Crestor) 20 mg PO HS [facility] Last Admin: 10/27/17 22:02 Dose: 20 mg Zinc Sulfate (Zinc Sulfate 220 Mg Cap) 220 mg PO DAILY [facility] Last Admin: 10/28/17 09:13 Dose: 220 mg - Labs Labs: 10/27/17 07:46 10/27/17 07:46
--- NOTE | 2017-10-28 23:49 | CP.PCM.PN ---
Subjective - Date & Time of Evaluation Date of Evaluation: 10/28/17 Time of Evaluation: 23:49 - Subjective Subjective: AFEBRILE. NO NEW COMPLAINTS S/P STERNAL WOUND DRESSING CHANGE THIS AM. SON AT BED SIDE. LABS; STERNAL WOUND CULTURE -VE GROWTH. -VE SMEAR FOR YEAST. STERNAL WOUND - MYCOBACTERIAL SMEAR/CULTURE -P Objective - Vital Signs/Intake and Output Vital Signs (last 24 hours): Temp Pulse Resp BP Pulse Ox 98.1 F 69 18 96/55 L 96 10/28/17 15:14 10/28/17 15:14 10/28/17 15:14 10/28/17 15:14 10/28/17 15:14 Intake and Output: 10/28/17 10/29/17 18:59 06:59 Intake Total 180 Balance 180 - Medications Medications: Current Medications Albuterol/Ipratropium (Duoneb 3 Mg/0.5 Mg (3 Ml) Ud) 3 ml INH RQ8 [facility] Last Admin: 10/28/17 23:36 Dose: 3 ml Ascorbic Acid (Vitamin C 500 Mg Tab) 500 mg PO BID [facility] Last Admin: 10/28/17 17:34 Dose: 500 mg Aspirin (Ecotrin) 81 mg PO DAILY [facility] Last Admin: 10/28/17 09:13 Dose: 81 mg Carvedilol (Coreg) 3.125 mg PO BID [facility] Last Admin: 10/28/17 17:35 Dose: Not Given Clopidogrel Bisulfate (Plavix) 75 mg PO DAILY [facility] Last Admin: 10/28/17 09:13 Dose: 75 mg Heparin Sodium (Porcine) (Heparin) 5,000 units SC Q12 [facility] Last Admin: 10/28/17 21:38 Dose: 5,000 units Vancomycin/Sodium Chloride (Vancomycin 1 Gm/Ns 200 Ml) 1 gm in 200 mls @ 133 mls/hr IVPB Q24H [facility] Stop: 10/31/17 00:01 Last Admin: 10/28/17 00:52 Dose: 133 mls/hr Piperacillin Sod/Tazobactam Sod (Zosyn 3.375 Gm Iv Premix) 3.375 gm in 50 mls @ 100 mls/hr IVPB Q8H [facility] PRN Reason: Protocol Last Admin: 10/28/17 22:02 Dose: 100 mls/hr Rosuvastatin Calcium (Crestor) 20 mg PO [facility] Last Admin: 10/28/17 21:38 Dose: 20 mg Zinc Sulfate (Zinc Sulfate 220 Mg Cap) 220 mg PO DAILY [facility] Last Admin: 10/28/17 09:13 Dose: 220 mg - Labs Labs: 10/27/17 07:46 10/27/17 07:46 - Constitutional Appears: No Acute Distress, Cachectic - Head Exam Head Exam: NORMAL INSPECTION - Eye Exam Eye Exam: EOMI, PERRL - ENT Exam ENT Exam: Normal Oropharynx - Neck Exam Neck Exam: Normal Inspection - Respiratory Exam Respiratory Exam: Clear to Ausculation Bilateral (INCISION SITE - CLEAN +VE DRESSING C/D/I.), NORMAL BREATHING PATTERN - GI/Abdominal Exam GI & Abdominal Exam: Soft, Normal Bowel Sounds - Extremities Exam Extremities Exam: absent: Calf Tenderness, Pedal Edema - Neurological Exam Neurological Exam: Alert, Awake, CN II-XII Intact - Psychiatric Exam Psychiatric exam: Normal Mood - Skin Skin Exam: Normal Color, Warm Assessment and Plan (1) Abscess of sternal region Status: Acute (2) CAD (coronary artery disease) Status: Acute (3) S/P CABG x 3 Status: Acute (4) Hx of myocardial infarction Status: Acute (5) Cardiac arrest Status: Acute - Assessment and Plan (Free Text) Plan: F/U CULTURES TO ADJUST ANTIBIOTICS. CONTINUE iv ZOSYN 3.375 EVERY 8 HOURLY .10/25/17 FOR NOW CONTINUE iv VANCOMYCIN 1 G Q 24 HOURLY .10/25/17 FOR NOW. LOCAL WOUND CARE PER SURGERY. IF Wound cultures negative growth X 48HRS then follow as outpatient on by mouth LEVAQUIN 500 MG ONCE A DAY DAILY X 10 DAYS. Cleocin 300mg po tid X 10 DAYS. FOLLOW-UP RENAL FUNCTIONS/lftS NEXT WEEK. PATIENT TO FOLLOW-UP THORACIC SURGERY ON MONDAY,October, REPORTED. PT WILL NEED RE-EVALUATION OF WOUND AND CULTURES AND FURTHER ABX RX TO HEALING. case discussed with the PMD DR OTERO.
[2017-10-29 00:44] VITALS: RESP 20; TEMP 97.6; O2SAT 98
[2017-10-29] MEDS: Piperacill/Tazo 3.375gm in Dex 3.375 GM/50 ML BAG IVPB SCH ×2 (06:14→14:19)
[2017-10-29] MEDS: Albuterol-Ipratrop 3 mg / 0.5 (3 ml) UD INH SCH ×2 (07:29→16:17)
[2017-10-29 08:14] LABS: BASO % 0.9 % (0.0-2.0); EOS # 0.4 K/uL (0.0-0.7); EOS % 7.4 % (0.0-4.0); HEMOGLOBIN 13.5 g/dL (11.0-16.0); LYMPH # 2.7 K/uL (1.0-4.3); LYMPH % 48.8 % (20.0-40.0); MEAN CELL VOLUME 88.2 fL (81.0-99.0); MEAN CORPUSCULAR HEMOGLOBIN 30.1 pg (27.0-31.0); MEAN CORPUSCULAR HGB CONC 34.2 g/dL (33.0-37.0); MEAN PLATELET VOLUME 8.5 fL (7.2-11.7); MONO # 0.4 K/uL (0.0-0.8); MONO % 7.2 % (0.0-10.0); NEUT % 35.7 % (50.0-75.0); NRBC % 0.1 % (0.0-2.0); RBC 4.47 Mil/uL (3.80-5.20); RED CELL DISTRIBUTION WIDTH 13.9 % (11.5-14.5); WHITE BLOOD COUNT 5.6 K/uL (4.8-10.8)
[2017-10-29 08:15] LABS: ALB/GLOB RATIO 0.9 (1.0-2.1); ALBUMIN 2.9 g/dL (3.5-5.0); ALT/SGPT 27 U/L (9-52); AST/SGOT 33 U/L (14-36); BLOOD UREA NITROGEN 12 mg/dL (7-17); CALCIUM 8.7 mg/dl (8.6-10.4); GFR AFRICAN-AMERICAN > 60; GFR NON-AFRICAN AMERICAN > 60
[2017-10-29 10:28] VITALS: BP 106/66; PULSE 74
--- NOTE | 2017-10-29 19:42 | CP.PCM.DIS ---
Provider - Provider Date of Admission: 10/25/17 19:51 Attending physician: Van Xavier MD Time Spent in preparation of Discharge (in minutes): 45 Hospital Course - Lab Results Lab Results: Micro Results 10/26/17 11:49 Abscess - Sternum Gram Stain - Final 10/26/17 11:49 Abscess - Sternum Wound Culture - Final No growth. 10/25/17 22:15 Blood Blood Culture - Preliminary NO GROWTH AFTER 3 DAYS 10/25/17 22:15 Blood Blood Culture - Preliminary NO GROWTH AFTER 3 DAYS 10/27/17 14:30 Naris MRSA Culture (Admit) - Final MRSA NOT DETECTED 10/26/17 11:49 Abscess - Sternum Fungal Smear - Final Most Recent Lab Values WBC 5.6 K/uL (4.8-10.8) 10/29/17 07:47 RBC 4.47 Mil/uL (3.80-5.20) 10/29/17 07:47 Hgb 13.5 g/dL (11.0-16.0) 10/29/17 07:47 Hct 39.4 % (34.0-47.0) 10/29/17 07:47 MCV 88.2 fL (81.0-99.0) 10/29/17 07:47 MCH 30.1 pg (27.0-31.0) 10/29/17 07:47 MCHC 34.2 g/dL (33.0-37.0) 10/29/17 07:47 RDW 13.9 % (11.5-14.5) 10/29/17 07:47 Plt Count 194 K/uL (130-400) 10/29/17 07:47 MPV 8.5 fL (7.2-11.7) 10/29/17 07:47 Neut % (Auto) 35.7 % (50.0-75.0) L 10/29/17 07:47 Lymph % (Auto) 48.8 % (20.0-40.0) H 10/29/17 07:47 [place] % (Auto) 7.2 % (0.0-10.0) 10/29/17 07:47 Eos % (Auto) 7.4 % (0.0-4.0) H 10/29/17 07:47 Baso % (Auto) 0.9 % (0.0-2.0) 10/29/17 07:47 Neut # (Auto) 2.0 K/uL (1.8-7.0) 10/29/17 07:47 Lymph # (Auto) 2.7 K/uL (1.0-4.3) 10/29/17 07:47 [place] # (Auto) 0.4 K/uL (0.0-0.8) 10/29/17 07:47 Eos # (Auto) 0.4 K/uL (0.0-0.7) 10/29/17 07:47 Baso # (Auto) 0.0 K/uL (0.0-0.2) 10/29/17 07:47 ESR 20 mm/hr (0-20) 10/27/17 07:46 Sodium 141 mmol/L (132-148) 10/29/17 07:47 Potassium 4.1 mmol/L (3.6-5.2) 10/29/17 07:47 Chloride 106 mmol/L (98-107) 10/29/17 07:47 Carbon Dioxide 26 mmol/L (22-30) 10/29/17 07:47 Anion Gap 14 (10-20) 10/29/17 07:47 BUN 12 mg/dL (7-17) 10/29/17 07:47 Creatinine 0.8 mg/dL (0.7-1.2) 10/29/17 07:47 Est GFR ( Amer) > 60 10/29/17 07:47 Est GFR (Non-Af Amer) > 60 10/29/17 07:47 Random Glucose 94 mg/dL (65-105) 10/29/17 07:47 Hemoglobin A1c 6.4 % (4.2-6.5) 10/27/17 16:02 Calcium 8.7 mg/dl (8.6-10.4) 10/29/17 07:47 Phosphorus 4.1 mg/dL (2.5-4.5) 10/27/17 07:46 Magnesium 1.8 mg/dL (1.6-2.3) 10/27/17 07:46 Total Bilirubin 0.4 mg/dL (0.2-1.3) 10/29/17 07:47 Direct Bilirubin 0.4 mg/dL (0.0-0.4) 10/27/17 07:46 AST 33 U/L (14-36) 10/29/17 07:47 ALT 27 U/L (9-52) 10/29/17 07:47 Alkaline Phosphatase 72 U/L (38-126) 10/29/17 07:47 C-Reactive Protein < 5.00 mg/L (0.0-9.9) 10/27/17 07:46 Total Protein 6.3 g/dL (6.3-8.3) 10/29/17 07:47 Albumin 2.9 g/dL (3.5-5.0) L 10/29/17 07:47 Globulin 3.3 gm/dL (2.2-3.9) 10/29/17 07:47 Albumin/Globulin Ratio 0.9 (1.0-2.1) L 10/29/17 07:47 - Hospital Course Hospital Course: Chief complaint: Swelling in the sternal region History of present illness: 67-year-old female with the history of hypertension, history of coronary artery disease, recently had a cardiac arrest, complicated underwent CABG 4 at [facility] 3 weeks ago. Patient went to rehabilitation, was doing okay, currently at home. One week ago patient started noticing minimal swelling, I saw her in the office 6 days ago, patient started on by mouth antibiotic at that time, and also [address] scan of the chest which was showing evidence of suspected fluid collection, possible abscess. I called the patient and advised her to come to the hospital. Currently patient is having no fever no chills. Minimal redness and swelling in the sternal region noted. Denies any other major active symptoms. But comparing of weakness, tiredness, exertional dyspnea, cough with mucus production. Past medical history: CAD, hypertension Surgical history coronary artery bypass grafting recently. Allergies no known drug allergies Personal history nonsmoker nonalcoholic Family history: Parents have a history of heart disease, brother had a history of [place] CVA Throughout Hospital Course: Patient was evaluated by a Cardiothoracic surgeon who performed a bedside I&D - specimens were sent for wound culture and gram stain, fungal culture, and for AFB. Patient was seen by Infectious Disease - who recommended the following cultures be sent and to discharge patient with Augmentin x 14 days. Patient will follow up with Dr. Thomas tomorrow in his office in [facility] [place] and will follow up with Dr. Xavier in 1 week. Discharge Exam - Head Exam Head Exam: NORMAL INSPECTION Discharge Plan - Discharge Medications Prescriptions: Lactobacillus Acidophilus [Bacid Acidophilus] 1 cap PO BID #60 cap Sulfamethoxazole/Trimethoprim [Bactrim DS 800 mg-160 mg] 1 tab PO BID #20 tab levoFLOXacin [Levaquin] 750 mg PO DAILY #10 tab RX: Zinc [Zinc Sulfate 220 mg Cap] 220 mg PO DAILY #30 cap - Follow Up Plan Condition: STABLE Disposition: HOME/ ROUTINE Instructions: Heart Healthy Diet, Skin Abscess, Levofloxacin (Systemic), Abscess Incision and Drainage (DC), Sulfamethoxazole and Trimethoprim, Lactobacillus, Abscess (GEN) Additional Instructions: Please see Dr. Thomas on October 30 at 12pm in his office at [facility] [place] [facility]. You are status post incision and drainage of a [place] [address] Contact Information Please continue taking your home medications as prescribed. Please take the following antibiotics: Bactrim 1 tablet by mouth TWICE a day for 10 days, Levaquin 750mg by mouth once daily for 10 days and the probiotic twice a day for 30 days (please take 2 hours before taking your antibiotics). DO NOT TAKE the AUGMENTIN that was sent to your pharmacy. Please follow up with Dr. Xavier 1-2 weeks. Referrals: Tomas Thomas MD [Medical Doctor] -
--- NOTE | 2017-10-29 23:24 | CP.PCM.PN ---
Subjective - Date & Time of Evaluation Date of Evaluation: 10/28/17 Time of Evaluation: 08:35 - Subjective Subjective: Patient seen and evaluated Denies chest pain and dyspnea Objective - Vital Signs/Intake and Output Vital Signs (last 24 hours): Temp Pulse Resp BP Pulse Ox 97.6 F 74 20 106/66 98 10/29/17 07:15 10/29/17 10:28 10/29/17 07:15 10/29/17 10:28 10/29/17 07:15 Intake and Output: 10/29/17 10/30/17 18:59 06:59 Intake Total 300 Balance 300 - Labs Labs: 10/29/17 07:47 10/29/17 07:47
--- NOTE | 2017-10-29 23:25 | CP.PCM.PN ---
Subjective - Date & Time of Evaluation Date of Evaluation: 10/29/17 Time of Evaluation: 07:15 - Subjective Subjective: Patient seen and evaluated Denies chest pain and dyspnea Objective - Vital Signs/Intake and Output Vital Signs (last 24 hours): Temp Pulse Resp BP Pulse Ox 97.6 F 74 20 106/66 98 10/29/17 07:15 10/29/17 10:28 10/29/17 07:15 10/29/17 10:28 10/29/17 07:15 Intake and Output: 10/29/17 10/30/17 18:59 06:59 Intake Total 300 Balance 300 - Labs Labs: 10/29/17 07:47 10/29/17 07:47
== END 2017-10-29 19:32 | disposition home or self-care (01) | DRG 863 ==
LOC: C.ER 17:32 → C.9E 19:51 → C.6T 21:41
PROVIDERS: ADMIT Internal Medicine; ATTEND Internal Medicine
PROC: 0H95XZZ Drainage of Chest Skin, External Approach (ICD-10-PCS; principal; 2017-10-26)
DX: T81.4XXA Infection following a procedure, initial encounter (principal); L02.213 Cutaneous abscess of chest wall; I25.10 Atherosclerotic heart disease of native coronary artery without angina pectoris; Y83.2 Surgical operation with anastomosis, bypass or graft as the cause of abnormal reaction of the patient, or of later complication, without mention of misadventure at the time of the procedure; I10 Essential (primary) hypertension; I25.2 Old myocardial infarction; Z79.02 Long term (current) use of antithrombotics/antiplatelets; Z79.82 Long term (current) use of aspirin; Z82.3 Family history of stroke; Z82.49 Family history of ischemic heart disease and other diseases of the circulatory system; Z95.1 Presence of aortocoronary bypass graft